=== PATIENT | female | born 1965 | race African-American/Black ===

== ENCOUNTER 2020-12-25 14:18 | Outpatient (REF) | payer OTHER, SELFPAY ==
--- NOTE | ~2020-12-25 | MR_ITS ---
EXAMINATION: MR BRAIN WITHOUT AND WITH CONTRAST CLINICAL INFORMATION: Reevaluate pituitary neoplasm. COMPARISON: MRI dated 12/11/2014. TECHNIQUE: Multiplanar, multisequential imaging was obtained without and with intravenous administration of contrast. Intravenous contrast: Gadavist 3.5 mL. Limited study with motion artifacts. FINDINGS: The lesion with decreased differential enhancement in the right lateral aspect of the anterior pituitary lobe has mildly increased in size, now measuring 1.2 x 0.8 x 0.9 cm, previously measuring 0.9 x 0.6 x 0.7 cm. The infundibulum is deviated to the left of midline. The lesion further encroaches laterally without extension into the right cavernous sinus. The internal carotid artery flow voids are maintained. There is no suprasellar extension of the microadenoma. The sella turcica is mildly expanded from chronic remodeling. No diffusion abnormalities are identified to suggest an acute or subacute infarct. The ventricles are normal in size. No mass effect or midline shift is seen. No brain parenchymal signal abnormalities are seen. No extra-axial fluid collections are noted. The brainstem and cerebellum are normal. On postcontrast imaging, there is no abnormal parenchymal or leptomeningeal enhancement. The craniovertebral junction, marrow signal, and midline structures are normal. The mastoid air cells are well aerated. Small retention cyst in the left maxillary antrum. MR/MR head/brain wo/w con IMPRESSION: Slightly limited examination with motion artifacts. Further mild increase in size of a known pituitary microadenoma, now measuring 1.2 x 0.8 x 0.9 cm in size. Otherwise, no acute intracranial process. Remainder of the brain parenchyma appears normal.
== END 2020-12-25 14:19 | disposition home or self-care (01) ==
LOC: HO.MRI 14:18
PROVIDERS: PCP Nurse Practitioner Family; Visit Provider Psychiatry & Neurology Neurology
DX: D35.2 Benign neoplasm of pituitary gland (principal)
CPT/HCPCS: 70553; A9585

== ENCOUNTER 2023-10-18 09:19 | Outpatient (REF) | payer OTHER, SELFPAY | END 2023-10-18 09:20 | disposition home or self-care (01) | LOC: HO.HKASLDS 09:19 | PROVIDERS: Visit Provider Internal Medicine Nephrology | DX: Z13.89 Encounter for screening for other disorder (principal) ==

== ENCOUNTER 2023-10-18 09:51 | Outpatient (REF) | payer OTHER, SELFPAY ==
[2023-10-18 17:38] LABS: MANUAL DIFF FLAG NO
[2023-10-18 17:42] LABS: Basophils Percent Auto 0.5 % (0-2); Hematocrit 37.5 % (37.0-47.0); Hemoglobin 12.5 g/dl (12.0-16.0); Imm Gran Abs Auto 0.01 X10*3/uL (0.00-0.03); Imm Gran Pct Auto 0.3 % (0.0-0.4); Lymphocytes Absolute Auto 0.9 X10*3/uL (1.2-4.9); Lymphocytes Percent Auto 22.6 % (20-40); Mean Corpuscular HGB Conc 33.3 g/dl (31.0-35.0); Mean Corpuscular Hemoglobin 31.3 pg (27.0-33.0); Mean Platelet Volume 9.8 fL (9.4-12.3); Monocytes Absolute Auto 0.4 X10*3/uL (0.1-1.2); Monocytes Percent Auto 9.1 % (2-11); Neutrophils Absolute Auto 2.6 x10*3/uL (2.0-8.3); Neutrophils Percent Auto 67.5 % (45-73); Platelet Count 211 X10*3/uL (160-400); Red Blood Count 3.99 X10*6/uL (4.20-5.50); Red Cell Distribution Width 11.9 % (11.0-16.0); White Blood Count 3.9 X10*3/uL (4.8-10.8)
[2023-10-18 18:19] LABS: Creatinine Urine 181.99 mg/dL; Total Protein Urine Random < 7 mg/dL (<12)
[2023-10-18 18:22] LABS: Anion Gap 13 (12-20); Blood Urea Nitrogen 15 mg/dL (9-16); Calcium 9.6 mg/dL (8.4-10.2); Carbon Dioxide 27 mmol/L (22-29); Chloride 106 mmol/L (96-108); Estimated Glomerular Filt Rate 52; Potassium 4.6 mmol/L (3.3-5.1); Sodium 141 mmol/L (135-145)
== END 2023-10-18 09:52 | disposition home or self-care (01) ==
LOC: HO.HKASLDS 09:51
PROVIDERS: Visit Provider Internal Medicine Nephrology
DX: I10 Essential (primary) hypertension (principal)
CPT/HCPCS: 36415; 80051; 82310; 82565; 82570; 84156; 84520; 85025

== ENCOUNTER 2023-10-25 13:24 | Outpatient (AMB) | payer OTHER, SELFPAY ==
--- NOTE | 2023-10-25 13:30 | HO.NEPHOV ---
Vital Signs 10/25/23 13:37 Height 5 ft 4 in Weight 160 lb BMI 27.5 BP 122/80 Blood Pressure Location Lt brachial Position Sitting Pulse 86 Pulse Source Pulse Oximeter Pulse Oximetry (%) 96 Oxygen Delivery Method Room Air Intake Visit Reasons: Follow up/ Conf Gate Watchman Required: No Accompanied by: Self / Same As Patient Allergies amitriptyline Allergy (Verified 10/25/23 13:42) Unknown chocolate Allergy (Verified 10/25/23 13:42) Unknown codeine Allergy (Verified 10/25/23 13:42) Unknown egg Allergy (Verified 10/25/23 13:42) Unknown ibuprofen Allergy (Verified 10/25/23 13:42) Unknown milk Allergy (Verified 10/25/23 13:42) Unknown Penicillins Allergy (Verified 10/25/23 13:42) Unknown pineapple Allergy (Verified 10/25/23 13:42) Unknown chicken derived Adverse Reaction (Verified 10/25/23 13:42) Gastrointestinal Upset HPI Comments Details: 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 She had an incidental renal mass for which it underwent follow-up imaging including ultrasound and MRI in the past. Those imaging studies showed it to be non malignant. She is not known to be diabetic or hypertensive. Two of her aunts have chronic kidney disease. She does not have any hematuria, flank pain, recurrent UTI, hypertension, proteinuria or edema. She denies any chest pain, shortness of breath, proximal nocturnal dyspnea, nausea, vomiting, diarrhea. She does not take any nonsteroidal anti-inflammatories. [facility] Medical History (Updated 10/25/23 @ 13:44 by Caitlin Alcazar MA) Hypertension CKD (chronic kidney disease) stage 2, GFR 60-89 ml/min Hyperparathyroidism Malrotation of kidney Renal cyst Surgical History (Updated 10/25/23 @ 13:44 by Caitlin Alcazar MA) History of facial surgery History of hysterectomy H/O hernia repair History of surgical removal of ganglion cyst Family History (Updated 10/25/23 @ 13:45 by Caitlin Alcazar MA) Mother Diabetes Maternal Aunt Kidney disease Cancer Social History (Updated 10/25/23 @ 13:45 by Caitlin Alcazar MA) Alcohol intake: never Patient Tobacco Use Status: Never used Tobacco Use of substances other than those prescribed or required for medical reasons: No Review of Systems Const All systems reviewed & are unremarkable except as noted in HPI and below Physical Exam Vital Signs: Last Vital Signs Pulse 86 10/25/23 13:37 BP 122/80 10/25/23 13:37 Pulse Ox 96 10/25/23 13:37 Oxygen Delivery Method Room Air 10/25/23 13:37 BMI result Body Mass Index 27.5 Const General: comfortable and no acute distress Orientation/consciousness: patient oriented x3 HEENT Head: Yes normocephalic Mouth: Normal oral and palatal mucosa present Eyes EOM: EOMs intact bilaterally Neck Neck: Yes supple Resp Auscultation: clear to auscultation bilaterally Cardio Jugular venous distension: no JVD Rate: regular rate GI Palpation (GI): Soft to palpation Auscultation: normal bowel sounds General: Yes no CVA tenderness Back/Spine/Pelvis Back: no CVA tenderness Skin General skin exam: no rashes or lesions noted Neuro General: patient oriented x3 and moves all extremities Extrem General: Yes no pedal edema Results Reviewed Nephrology Results: Hgb 12.5 g/dl (12.0-16.0) 10/18/23 WBC 3.9 X10*3/uL (4.8-10.8) L 10/18/23 Plt Count 211 X10*3/uL (160-400) 10/18/23 Sodium 141 mmol/L (135-145) 10/18/23 Potassium 4.6 mmol/L (3.3-5.1) 10/18/23 Chloride 106 mmol/L (96-108) 10/18/23 Carbon Dioxide 27 mmol/L (22-29) 10/18/23 BUN 15 mg/dL (9-16) 10/18/23 Creatinine 1.07 mg/dL (0.5-1.4) 10/18/23 Calcium 9.6 mg/dL (8.4-10.2) 10/18/23 Urine Creatinine 181.99 mg/dL 10/18/23 Protein/Creatinin Ratio TNP 10/18/23 Assessment & Plan Assessment & Plan (1) CKD (chronic kidney disease) stage 2, GFR 60-89 ml/min: Code(s): N18.2 - Chronic kidney disease, stage 2 (mild) Category: Medical (2) Hyperparathyroidism: Code(s): E21.3 - Hyperparathyroidism, unspecified Category: Medical (3) Malrotation of kidney: Code(s): Q63.2 - Ectopic kidney Category: Medical (4) Renal cyst: Code(s): N28.1 - Cyst of kidney, acquired Category: Medical Plan John has history of left malrotated kidney with a double ureter and renal cysts. She has no urinary symptoms. She has no history of hypertension, proteinuria, edema. She has no history DVT. Her renal functions have been stable. Her serum calcium is normal. She maintains good hydration. She avoids nonsteroidal anti-inflammatories. I ordered a F/U renal imaging . I did not make any medication changes today. All questions answered. Follow-up appointment given. Orders: Orders US renal BI Today N18.2 - Chronic kidney disease, stage 2 (mild), N28.1 - Cyst of kidney, acquired, Q63.2 - Ectopic kidney Blood Urea Nitrogen Today E21.3 - Hyperparathyroidism, unspecified, N18.2 - Chronic kidney disease, stage 2 (mild), N28.1 - Cyst of kidney, acquired, Q63.2 - Ectopic kidney Creatinine Today E21.3 - Hyperparathyroidism, unspecified, N18.2 - Chronic kidney disease, stage 2 (mild), N28.1 - Cyst of kidney, acquired, Q63.2 - Ectopic kidney Electrolytes Today E21.3 - Hyperparathyroidism, unspecified, N18.2 - Chronic kidney disease, stage 2 (mild), N28.1 - Cyst of kidney, acquired, Q63.2 - Ectopic kidney Coding Level of Care Code Est Pt Level 4 (32015) Diagnoses CKD (chronic kidney disease) stage 2, GFR 60-89 ml/min N18.2 Hyperparathyroidism E21.3 Malrotation of kidney Q63.2 Renal cyst N28.1
[2023-10-25 13:37] VITALS: BP 122/80; PULSE 86; O2SAT 96; BMI 27.5
== END 2023-10-25 14:28 | disposition home or self-care (01) ==
PROVIDERS: PCP Nurse Practitioner Family; Visit Provider Internal Medicine Nephrology
DX: N18.2 Chronic kidney disease, stage 2 (mild) (principal); E21.3 Hyperparathyroidism, unspecified; Q63.2 Ectopic kidney; N28.1 Cyst of kidney, acquired
CPT/HCPCS: 99214

== ENCOUNTER → 2023-10-25 13:24 | Outpatient (BNVA) | payer OTHER, SELFPAY | PROVIDERS: PCP Nurse Practitioner Family; Visit Provider Internal Medicine Nephrology | DX: I12.9 Hypertensive chronic kidney disease with stage 1 through stage 4 chronic kidney disease, or unspecified chronic kidney disease (principal); N18.2 Chronic kidney disease, stage 2 (mild); Q63.2 Ectopic kidney; N28.1 Cyst of kidney, acquired; E21.3 Hyperparathyroidism, unspecified | CPT/HCPCS: 99212 ==

== ENCOUNTER 2023-11-11 09:36 | Outpatient (REF) | payer OTHER, SELFPAY ==
--- NOTE | ~2023-11-11 | US_ITS ---
EXAMINATION: US RETROPERITONEAL LIMITED (RENAL ONLY) CLINICAL INFORMATION: Cyst of kidney, acquired. Left malrotated kidney with double ureter. COMPARISON: MRI abdomen 06/13/2020. Renal ultrasound 04/30/2020. TECHNIQUE: Real-time imaging of the kidneys. Limited visualization due to bowel gas and body habitus. FINDINGS: RIGHT KIDNEY: 10.6 x 4.1 x 5.3 cm (SAG x AP x TRV). No hydronephrosis. No renal calculi. Renal cortical thickness is normal. Limited visualization. LEFT KIDNEY: 10.1 x 3.8 x 3.0 cm (SAG x AP x TRV). Left kidney, particularly the lower pole, is difficult to visualize due to bowel gas. Possible malrotation and duplication of left renal collecting system are difficult to confirm due to limited visualization. A 1.5 x 1.2 cm anechoic focus in the region of the upper pole of the left kidney was visualized only on one view. No renal calculi. No hydronephrosis. ADDITIONAL FINDINGS: Incidental note on limited views of the gallbladder of cholelithiasis. Dedicated views of the gallbladder following appropriate preparation could be considered for further evaluation. US/US renal BI IMPRESSION: 1. Left kidney is very difficult to visualize due to bowel gas. Possible malrotation and duplication of left renal collecting system are difficult to confirm due to limited visualization. A 1.5 x 1.2 cm anechoic focus in the region of the upper pole of the left kidney was visualized only on one view and may possibly be related to renal cysts identified on prior MR abdomen, but are extremely difficult to evaluate due to limited visualization. Additional imaging with CT scan with and without intravenous contrast employing renal mass protocol recommended. 2. Incidental note on limited views of the gallbladder of cholelithiasis. Dedicated views of the gallbladder following appropriate preparation could be considered for further evaluation.
== END 2023-11-11 09:37 | disposition home or self-care (01) ==
LOC: HO.US 09:36
PROVIDERS: Visit Provider Internal Medicine Nephrology
DX: N28.1 Cyst of kidney, acquired (principal); N18.2 Chronic kidney disease, stage 2 (mild); Q63.2 Ectopic kidney
CPT/HCPCS: 76775

== ENCOUNTER 2024-04-17 13:46 | Outpatient (AMB) | payer OTHER, SELFPAY ==
--- NOTE | 2024-04-17 13:56 | HO.NEPHOV_ITS ---
Vital Signs 04/17/24 13:57 Height 5 ft 4 in Weight 150 lb 4 oz BMI 25.8 BP 130/80 Blood Pressure Location Rt brachial Position Sitting Pulse 88 Pulse Source Pulse Oximeter Pulse Oximetry (%) 95 Oxygen Delivery Method Room Air Intake Visit Reasons: 6 month f/u-Conf Belting Cutter Required: No Accompanied by: Self / Same As Patient Allergies amitriptyline Allergy (Verified 04/17/24 13:57) Unknown chocolate Allergy (Verified 04/17/24 13:57) Unknown codeine Allergy (Verified 04/17/24 13:57) Unknown egg Allergy (Verified 04/17/24 13:57) Unknown ibuprofen Allergy (Verified 04/17/24 13:57) Unknown milk Allergy (Verified 04/17/24 13:57) Unknown Penicillins Allergy (Verified 04/17/24 13:57) Unknown pineapple Allergy (Verified 04/17/24 13:57) Unknown chicken derived Adverse Reaction (Verified 04/17/24 13:57) Gastrointestinal Upset HPI Comments Details: 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 She had an incidental renal mass for which it underwent follow-up imaging including ultrasound and MRI in the past. Those imaging studies showed it to be non malignant. She is not known to be diabetic or hypertensive. Two of her aunts have chronic kidney disease. She does not have any hematuria, flank pain, recurrent UTI, hypertension, proteinuria or edema. She denies any chest pain, shortness of breath, proximal nocturnal dyspnea, nausea, vomiting, diarrhea. She does not take any nonsteroidal anti-inflammatories [facility] Medical History (Updated 10/25/23 @ 13:44 by Caitlin Alcazar MA) Hypertension CKD (chronic kidney disease) stage 2, GFR 60-89 ml/min Hyperparathyroidism Malrotation of kidney Renal cyst Surgical History History of facial surgery History of hysterectomy H/O hernia repair History of surgical removal of ganglion cyst Family History Mother Diabetes Maternal Aunt Kidney disease Cancer Social History Alcohol intake: never Patient Tobacco Use Status: Never used Tobacco Review of Systems Const All systems reviewed & are unremarkable except as noted in HPI and below Physical Exam Vital Signs: Last Vital Signs Pulse 88 04/17/24 13:57 BP 130/80 04/17/24 13:57 Pulse Ox 95 04/17/24 13:57 Oxygen Delivery Method Room Air 04/17/24 13:57 BMI result Body Mass Index 25.8 Const General: comfortable and no acute distress Orientation/consciousness: patient oriented x3 HEENT Head: Yes normocephalic Mouth: Normal oral and palatal mucosa present Eyes EOM: EOMs intact bilaterally Neck Neck: Yes supple Resp Auscultation: clear to auscultation bilaterally Cardio Jugular venous distension: no JVD Rate: regular rate GI Palpation (GI): Soft to palpation Auscultation: normal bowel sounds General: Yes no CVA tenderness Back/Spine/Pelvis Back: no CVA tenderness Skin General skin exam: no rashes or lesions noted Neuro General: patient oriented x3 and moves all extremities Extrem General: Yes no pedal edema Assessment & Plan Assessment & Plan (1) Renal cyst: Code(s): N28.1 - Cyst of kidney, acquired Category: Medical (2) Malrotation of kidney: Code(s): Q63.2 - Ectopic kidney Category: Medical (3) CKD (chronic kidney disease) stage 2, GFR 60-89 ml/min: Code(s): N18.2 - Chronic kidney disease, stage 2 (mild) Category: Medical Plan John has history of left malrotated kidney with a double ureter and renal cysts. She has no urinary symptoms. She has no history of hypertension, proteinuria, edema. She has no history DVT. Her renal functions had been stable but her serum creatinine had gone up to 1.3. Her serum calcium is normal. She maintains good hydration. She avoids nonsteroidal anti- inflammatories. Her F/U renal imaging was reviewed. I did not make any medication changes today. All questions answered. Follow-up appointment given. Orders: Orders Blood Urea Nitrogen 3 Months N18.2 - Chronic kidney disease, stage 2 (mild), N28.1 - Cyst of kidney, acquired, Q63.2 - Ectopic kidney Creatinine 3 Months N18.2 - Chronic kidney disease, stage 2 (mild), N28.1 - Cyst of kidney, acquired, Q63.2 - Ectopic kidney Electrolytes 3 Months N18.2 - Chronic kidney disease, stage 2 (mild), N28.1 - Cyst of kidney, acquired, Q63.2 - Ectopic kidney Calcium 3 Months N18.2 - Chronic kidney disease, stage 2 (mild), N28.1 - Cyst of kidney, acquired, Q63.2 - Ectopic kidney Protein Creatinine Ratio, Ur 3 Months N18.2 - Chronic kidney disease, stage 2 (mild), N28.1 - Cyst of kidney, acquired, Q63.2 - Ectopic kidney Coding Level of Care Code Est Pt Level 4 (95424) Diagnoses Renal cyst N28.1 Malrotation of kidney Q63.2 CKD (chronic kidney disease) stage 2, GFR 60-89 ml/min N18.2
[2024-04-17 13:57] VITALS: BP 130/80; PULSE 88; O2SAT 95; BMI 25.8
== END 2024-04-17 14:11 | disposition home or self-care (01) ==
PROVIDERS: PCP Nurse Practitioner Family; Visit Provider Internal Medicine Nephrology
DX: N28.1 Cyst of kidney, acquired (principal); Q63.2 Ectopic kidney; N18.2 Chronic kidney disease, stage 2 (mild)
CPT/HCPCS: 99214

== ENCOUNTER → 2024-04-17 13:46 | Outpatient (BNVA) | payer OTHER, SELFPAY | PROVIDERS: PCP Nurse Practitioner Family; Visit Provider Internal Medicine Nephrology | DX: N18.2 Chronic kidney disease, stage 2 (mild) (principal); N28.1 Cyst of kidney, acquired; Q63.2 Ectopic kidney | CPT/HCPCS: 99212 ==

== ENCOUNTER 2024-07-10 13:43 | Outpatient (REF) | payer OTHER, SELFPAY ==
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
--- OUTSIDE RECORDS SUMMARY | 2024-07-10 16:44 | XMS_ITS | Clinical Summary ---
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 Name Role Phone Amna Phillip [facility] Primary Care Provider Allergies Active Allergy Reactions Criticality Noted Date Comments Amitriptyline Headache 01/23/2016 Blurry vision and dizziness Carbamazepine Diarrhea,Nausea And Vomiting,Rash 11/28/2014 Chicken Meat Extract 11/14/2015 GI upset Naches Hives 12/16/2014 Codeine Rash 11/28/2014 Egg Diarrhea 12/16/2014 Says had allergy test which was pos for allergy eggs Ibuprofen Nausea And Vomiting 11/28/2014 Lactose Diarrhea 12/16/2014 Peanut 11/14/2015 Itching Penicillins Diarrhea,Nausea And Vomiting 11/28/2014 Pineapple Hives 12/16/2014 Medications atorvastatin (LIPITOR) 10 mg tablet Take 1 tablet (10 mg total) by mouth 1 (one) time each day. 4 Active escitalopram (LEXAPRO) 20 mg tablet Take 1 tablet (20 mg total) by mouth 1 (one) time each day in the morning. Active lamoTRIgine (LaMICtal) 150 mg tablet TAKE 1 TABLET BY MOUTH ONCE A DAY DIRECTED IN ADDITION TO 25MG TABLET, TOTAL DOSE= 175MG Active lamoTRIgine (LaMICtal) 25 mg tablet TAKE 1 TABLET BY MOUTH EVERY DAY (WITH 150MG) DIRECTED Active lidocaine (LIDODERM) 5 % patch Place 1 patch on the skin daily. 4 Active loratadine (CLARITIN) 10 mg tablet Take 1 tablet (10 mg total) by mouth once daily as needed. 1 Active meclizine (ANTIVERT) [address] 1 TABLET INTO MOUTH, CHEW AND SWALLOW 3 (THREE) TIMES DAILY NEEDED FOR DIZZINESS Active miscellaneous medical supply misc by Other route daily. 6 Active methocarbamoL (ROBAXIN) 500 mg tablet Take 1 tablet (500 mg total) by mouth. Active nystatin (MYCOSTATIN) 100,000 unit/gram powder Apply topically 2 times daily. 4 Active pantoprazole (PROTONIX) 40 mg EC tablet Take 1 tablet (40 mg total) by mouth 2 (two) times a day. Active Vitamin B-2 100 mg tablet Take 1 tablet (100 mg total) by mouth 1 (one) time each day. Active traZODone (DESYREL) 100 mg tablet TAKE 1 1/2- 2 TABLET BY MOUTH AT BEDTIME Active lactose-reduced food (BOOST HIGH PROTEIN ORAL) Take by mouth. Activ e Active Problems No known active problems Encounters Date Type Department Care Team Description 05/23/2024 10:00 AM EST Office Visit Orthopedic Surgery - [place] [address] [place] [phone] Gabriella Carvalho PA Tendinitis of left rotator cuff (Primary Dx); Chronic left shoulder pain; Cervicalgia from Last 3 Months Social History Tobacco Use Types Packs/Day Years Used Date Smoking Tobacco: Never Assessed Comments Unknown Sex and Gender Information Value Date Recorded Sex Assigned at Not on file Legal Sex Female 6:22 AM EST Gender Identity Not on file Sexual Orientation Not on file Obstetrics History Last Filed Vital Signs Vital Sign Reading Time Taken Comments Blood Pressure - - Pulse - - Temperature - - Respiratory Rate - - Oxygen Saturation - - Inhaled Oxygen Concentration - - Weight 70.8 kg (156 lb) 05/23/2024 10:01 AM EST Height 162.6 cm (5' 4.02 ) 05/23/2024 10:[address] Body Mass Index 26.76 05/23/2024 10:01 AM EST Plan of Treatment Upcoming Encounters Date Type Department Care Team (Late st Contact Info) Description 07/25/2024 10:00 AM EDT Office Visit Orthopedic Surgery - [place] [address] [facility] [address] [place] [phone] Gabriella Carvalho PA [address] [facility] [address] [place] [address] Health Maintenance Due Date Last Done Comments Breast Cancer Screening 1965 DTaP,Tdap,and Td Vaccines (1 - Tdap) 1982 Hepatitis A Vaccines (1 of 2 - Risk 2-dose series) 1982 Cervical Cancer Screening: Pap Smear 1984 Pneumococcal Vaccine: 50+ Years (1 of 1 - PCV) 2013 Colorectal Cancer Screening: Colonoscopy 04/04/2022 Hepatitis C Screening 04/04/2022 Social Influencers of Health Screening 04/04/2022 Hepatitis B Vaccines (1 of 3 - Risk 3-dose series) 2023 Influenza Vaccine (#1) 2024 , 02/16/2022, 02/16/2021, Additional history exists Depression Screening 03/13/2025 03/13/2024 Cholesterol Screening (Lipid Panel) 03/13/2029 03/13/2024, 03/13/2024, 12/17/2022, Additional history exists HIV Screening Completed 11/29/2014 Zoster Vaccines Completed 11/18/2018, 07/21/2018 RSV Immunization Patients 60+ Years Old Completed 04/26/2023 COVID-19 Vaccine Completed 01/04/2024, , 01/26/2022, Additional history exists HIB Vaccines Aged Out No longer eligi ble based on patient's age to complete this topic HPV Vaccines Aged Out No longer eligi ble based on patient's age to complete this topic IPV Vaccines Aged Out No longer eligi ble based on patient's age to complete this topic MMR Vaccines Aged Out No longer eligi ble based on patient's age to complete this topic Meningococcal ACWY Vaccine Aged Out N o longer eligible based on patient's age to complete this topic Meningococcal B Vacine Aged Out No lo nger eligible based on patient's age to complete this topic Pneumococcal Vaccine: Pediatrics (0 to 5 Years) and At-Risk Patients (6 to 64 Years) Aged Out No longer eligible based on patient's age to complete this topic RSV Immunization Patients Under 20 months Aged Out No longer eligible based on patient's age to complete this topic Varicella Vaccines Aged Out No longer eligible based on patient's age to complete this topic Procedures Procedure Name Priority Date/Time Associated Diagnosis Comments [place] ARTHROCENTESIS/ASPI RATION/INJECTION MAJOR JOINT/BURSA W/O U/S GUIDANCE Routine 05/23/2024 10:00 AM EST Chronic left shoulder pain Tendinitis of left rotator cuff from Last 3 Months Results * [place] ARTHROCENTESIS/ASPIRATION/INJECTION MAJOR JOINT/BURSA W/O U/S GUIDANCE (05/23/2024 10:00 AM EST) Narrative Gabriella Carvalho PA - 05/23/2024 10:00 AM EST MINA Ibarra ? 05/23/2024 11:10 AM L Inj/Asp: L subacromial bursa Indications: pain Details: 22 G needle, posterior approach Medications: 3 mL BUPivacaine HCl 0.5 %; 3 mL lidocaine 1 %; 40 mg triamcinolone acetonide 40 mg/mL Informed Consent: ??Laterality: ??Left ??Relevant images/test results available and reviewed: no ?Health status cleared: ??N/A ??Procedure/treatment, purpose, treatment alternatives, risks/potential complications and benefits explained: yes ?Risk/complications/benefits details: ??Risks and benefits associated with the injection reviewed which can include but not limited to infection, bleeding, bruising, transient synovitis, no improvement in symptoms. ??Patient questions answered: yes ?Patient agrees, verbalizes understanding, and wants to proceed: yes ?Consent given by: ??Patient ??Informed consent discussion completed by Physician/JAYSHREE with patient: ?? Verbal ??Pre-procedure timeout performed: yes ?? us Gabriella ENRIQUEZ IN CLINIC/BEDSIDE ORDERABLES Final Result from Last 3 Months Insurance [facility] Member Subscriber Plan / Payer (Ef fective 2016-Present) Name:John Kelly Relation to Subscriber:Self Name:John Kelly Payer ID:[id number] Group ID:[id number] Type:Not on file Address: [address] [place] [phone] Advance Directives Documents on File Type Date Recorded Patient Rib Cutter Expl anation Health Care Decision (hx) 01/12/2016 AD ANDREWS DIRECTIVE Health Care Decision (hx) 01/12/2016 AD ANDREWS DIRECTIVE Health Care Decision (hx) 01/12/2016 AD ANDREWS DIRECTIVE Health Care Decision (hx) 01/12/2016 AD ANDREWS DIRECTIVE Health Care Decision (hx) 01/12/2016 AD ANDREWS DIRECTIVE Health Care Decision (hx) 01/12/2016 AD ANDREWS DIRECTIVE Health Care Decision (hx) 01/12/2016 AD ANDREWS DIRECTIVE Health Care Decision (hx) 01/12/2016 AD ANDREWS DIRECTIVE Health Care Decision (hx) 01/12/2016 AD ANDREWS DIRECTIVE Health Care Decision (hx) 01/12/2016 AD ANDREWS DIRECTIVE Care Teams 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
--- OUTSIDE RECORDS SUMMARY | 2024-07-10 16:44 | XMS_ITS | Clinical Summary ---
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 Name Role Phone Garth Rosario Primary Care Provider [phone] Source Comments PLEASE NOTE, if this patient is a minor, it may be UNLAWFUL to discuss sensitive information that is contained in these records (such as FAMILY PLANNING, MENTAL HEALTH or SUBSTANCE ABUSE) with the minor patient's parent or other person without the patient's specific authorization.[facility] Allergies Active Allergy Reactions Criticality Noted Date Comments Amitriptyline Other (See Comments) 01/23/2016 Blurry vision and dizziness Carbamazepine Diarrhea,Rash,Nausea and Vomiting 11/28/2014 Chicken 11/14/2015 GI upset Brethren Hives 12/16/2014 Codeine Rash 11/28/2014 Eggs Diarrhea 12/16/2014 Says had allergy test which was pos for allergy eggs Ibuprofen Nausea and Vomiting 11/28/2014 Lactose Diarrhea 12/16/2014 Peanuts 11/14/2015 Itching Penicillins Diarrhea,Nausea and Vomiting 11/28/2014 Pineapple Hives 12/16/2014 Pork 11/14/2015 GI upset [place] 11/14/2015 GI upset Medications Miscellaneous Medical Supply miscIndications:Pi tuitary microadenoma (HCC-CMS),Fibromya lgia by miscellaneous route once daily. rollator Lifetime need Disp 1 D35.2 M79.7 1 Each 0 07/04/19 16 Active pantoprazole (PROTONIX) 40 mg EC tablet Take 40 mg by mouth 2 (two) times daily 11 04/18/20 18 Active diclofenac sodium (VOLTAREN) 1 % gelIndications:Hip pain, right Apply topically 2 (two) times daily 100 g 2 07/05/19 21 Active loratadine (CLARITIN) 10 mg tabletIndications: Seasonal allergies TAKE 1 TABLET BY MOUTH ONCE DAILY NEEDED FOR ALLERGIES 90 Tablet 1 04/15/20 21 Active miscellaneous medical supply miscIndications:Di fficulty walking by miscellaneous route once daily Orthotic sneakers x99 years 5'3 , 137 lbs 1 Each 2 10/24/19 22 Active miscellaneous medical supply miscIndications:Di fficulty walking by miscellaneous route once daily Orthotic shoes x99 years 5'3 137 lbs 1 Each 2 11/10/19 22 Active lamoTRIgine (LAMICTAL) 150 mg tablet TAKE 1 TABLET BY MOUTH ONCE A DAY DIRECTED IN ADDITION TO 25MG TABLET, TOTAL DAILY = 175MG 12/23/19 22 Active lamoTRIgine (LAMICTAL) 25 mg tablet TAKE 1 TABLET BY MOUTH ONCE A DAY DIRECTED IN ADDITION TO 150MG TABLET, TOTAL DAILY = 175MG 12/23/19 22 Active MISCELLANEOUS MEDICAL SUPPLY MISCIndications:La ck of appetite,Loss of weight by miscellaneous route 3 (three) times daily Lactose free Ensure nutrutional supplement to use one can TID x99 years vanilla flavor 90 Each 11 10/06/19 23 Active meclizine 25 mg chewable tabletIndications: Benign paroxysmal positional vertigo, unspecified laterality PLACE 1 TABLET INTO MOUTH, CHEW AND SWALLOW 3 (THREE) TIMES DAILY NEEDED FOR DIZZINESS 30 Tablet 3 11/18/19 23 Active traZODone (DESYREL) 100 mg tablet Take 200 mg by mouth 07/27/19 23 Active escitalopram (LEXAPRO) 20 mg tablet Take 1 Tablet by mouth once daily 90 Tablet 05/13/19 24 Active nystatin (MYCOSTATIN) 100,000 unit/gram powderIndications: Tinea corporis Apply topically 2 (two) times daily 30 g 2 09/29/19 24 Active VITAMIN B-2 100 mg tabIndications:Neftali whalen without status migrainosus, not intractable, unspecified migraine type TAKE 1 TABLET BY MOUTH EVERY DAY 90 Tablet 3 01/03/20 24 Active methocarbamoL (ROBAXIN) 500 mg tabletIndications: Acute pain of left shoulder,Strain of neck muscle, subsequent encounter Take 1 Tablet by mouth 3 (three) times daily 30 Tablet 1 02/22/20 24 Active lidocaine (LIDODERM) 5 % patchIndications:C hronic left shoulder pain,Strain of neck muscle, subsequent encounter Place 1 Patch onto the skin daily. Apply 1 patch to the affected area for a maximum of 12 hours, followed by removal for 12 hours. 30 Patch 03/13/20 24 Active traMADoL (ULTRAM) 50 mg tabletIndications: Chronic left shoulder pain Take 0.5 Tablets by mouth 3 (three) times daily as needed for pain 20 Tablet 03/13/20 24 Active salicylic acid 17 % external solutionIndication s:Viral wart on finger Apply topically once daily 10 mL 1 03/13/20 24 Active atorvastatin (LIPITOR) 10 mg tabletIndications: Mixed hyperlipidemia TAKE 1 TABLET BY MOUTH EVERY DAY 90 Tablet 1 03/26/20 24 Active Active Problems Problem Noted Date Diagnosed Date Anxiety 09/29/2023 Stage 3a chronic kidney disease (HCC-CMS) 2022 Simple hepatic cyst 08/24/2019 Overview (08/24/2019): Noted on CT-9 mm simple cyst in the lateral segment of liver Calculus of gallbladder with out cholecystitis without obstruction 08/24/2019 Overview (08/24/2019): Noted on CT-multiple lucent stones, no inflammatory changes Renal lesion 08/24/2019 Overview (07/04/2020): MRI abodimen Jun 2020: Simple cysts of malrotated kidney at [facility] CT abdomen-06/2019-11 mm lesion in the upper pole of the left kidney, recommendation for US. Wheelchair dependence 01/29/2019 H/O: hysterectomy 07/24/2018 Seasonal allergic rhinitis 12/07/2017 History of sleep apnea 12/27/2016 Overview (12/25/2020): November 2020: Not using CPAP Sleep study 12/03/16 at [facility] ordered via Dr. Marta Woods = STEFANO, Mild-mod and referred for BiPAP titration GERD (gastroesophageal reflux disease) 7 Severe episode of recurrent major depressive disorder, without psychotic features ([facility]) 07/19/2016 Overview (03/13/2024): Psych f/u at [facility] on [address] (Osiris Malone) Insomnia due to anxiety and fear 07/19/2016 Overview (03/13/2024): PSYCH F/U [facility] ((Osiris Malone)) Patient has healthcare proxy / NO BLOOD/ no date on form- received jan 2016 03/28/2016 Overview (03/28/2016): Document signed - but no date notes on document History of fall 01/15/2016 Overview (07/19/2016): 03/08/16- david saw her x 8- d/emilio after 8 visits- no longer needed. Home exercise encouraged did not meet up and go times goal of 10 seconds. 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 NEED RELEASE FOR PSYCH coordination ofcare Chondromalacia of both patellae 01/24/2015 Overview (06/11/2016): 05/24/16Saw Brain IRVIN Palomo- - bilat- pt will do PT- will r/t 6-8 weeks Saw Wenceslao Palomo PA-C September 2014 11/14/12 [facility] no sig. Abnormality right knee film 11/10/11 bilat knee pain normal exam Right ankle film normal 11/10/11 Normal left ankle film 11/10/11 BMD 04/02/11 normal bone density [facility] 01/03/04 normall elft foot film; normal left ankle bilat knee 03/04/05 norml Lumbar radiculopathy 01/24/2015 Overview (09/29/2023): August 2023-Followed by physiatry at [facility]-gets injections 09/15/15 saw PVSS TENS unti 50% improvement- no injection advised- conservative therapy only- pain likely Fibromyalgia in etiology 05/15/13 lucien Mild facet hypertrophy within the caudal LS spine without effect upon the central canal or adjacant neural foramen. No central stenosis nor foraminal stenosis throughout study 10/06/10 spine scoliosis there is levo curvature from T1-T12 of 8 degrees there is a dextro curvature from 1.1 to 1.5 of 5 degrees 02/16/[address]: Neg for fx/dislocation/loss of normal lordosis, likely secondary to spasm, Degen chg noted uin upper thoracic spine. Mild levoscoliosis of the right lumbar junction MR cervical spine 03/04/05: minimal post disc bulge C4-5, and C5-6 Pituitary microadenoma/ MRI done Nov 2014 [facility] 12/20/2014 Overview (10/23/2021): September 2021: has done imaging on head but is not sure what results were Mri of the brain done 12/11/14 at [facility]. For ? Optic neuritis left optic nerve lesion, spells.[facility] does not have report form her visit [...] retention cysts in the left maxillary sinus Hyperlipidemia 11/28/2014 Leukocytopenia Overview (02/24/2022): Jan 2022: Heme at [facility] also says no need for further workup, 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, Refer to pcp and neurologist to [facility] medications Med list in 2012: Tylenol,gaviscon,alprazolam,benztropine,vit b 12,keppra 500 bid, prilosec 20,metamucil,biotene mouth wash,zoloft 100 daily,simvastatin 20mg daily,trazodone 150mg hs History of seizures Overview (10/23/2021): September 2021: has not had any seizures [...] per id note 07/26/12; since 2003; on negin [place] Office Location & Contact [address] [place] [address] [place] [id number] Fibromyalgia Overview (02/25/2017): 11/17/15 saw Neuro- dx migraine- begin imitrex 50mg po bid- r/t 3 mon 07/31/15 saw Neuro no chg- r/t 6 month 07/23/15 rec approval for tens unit from [facility] 07/16/15: [facility]. Saw Sukhjinder Arce MD No [...] unit given. Lyrica minimally helpful 06/05/15;Tel call [phone] Kalin: PVSS saw 05/12/15: saw Dr. Ja Piña [phone] had EMG RLE-Normal,s/s worse with weight bearing activities; has wheel chair/walker, and cane per note. Assessment: radicuplothy, lumbar region MRI of the spine, no sig right sided nerve impingment, EMG of the right normal, PT minimally helpful, lyrica with mild improvement, possible SI joint mediated pain, plan injection of SI joint Marisela done 04/22/15 =6 ( normal) 02/13/[address] Hale at [facility] : plan cauda equina steroid injection Began [address] Avis Prajapati Saw ENT for dizziness 07/07/12: no vestibular dysfunction, normal hearing Thrush in 03/31/12, saw same ENT, Gerardo Bravo, at #[phone] amb with mild ataxia Dec 2010; Used cane with limp with ambulating in Apr 2011 MRI lumbar Spine 05/15/13: Subtle convex right lumbar scoliosis. Subtle disc bulge at L5-S1. Overall canal and foramen dimensions are acceptable the distal thoracic cord. Lumbar roots appear normal Began lyrica approx Fall [address] Galvan appt 01/07/15: saw Geoffrey at [facility]. Dx with MILD DDD confirmed by MRI, no surg required. Can try steroid injection May 2014, appt with Dr. Brent Boyd, At [facility] #[phone]; dx was 1.spells,2.depresion,3.chronic daily headache,4.lumbar radiculopathy,5.Fibromyalgia, Tx [...] as above in addition #6, optic neuritis, [place] normal MRI disc bulge L5-S1, Saw Dr. Diaz who sent her to psych, Saw Dr. Thomas, who said no surg. , plan : image MRI of orbits/face/neck, begin Amitripyline 100po qhs, stop trazadone [address] Ricardo Hutchins is rx'er at [facility] for the pt Lyrica/Lexapro/Klonopin RICARDO GONZALEZ, PMHNP-BC [address] [place] [address] ?[phone] ? Resolved Problems Problem Noted Date Diagnosed Date Resolved Date Suspected COVID-19 virus infection 09/07/2019 10/23/2021 Overview (09/07/2019): COVID-19 Tracking [reviewed or updated 09/07/2019] ? [...] weakening medications) ? ? Healthcare worker or paper cone maker? No ? ? COVID-19 Tested? - No ? ? Is patient ? No Other chest pain 05/15/2018 10/23/2021 Overview (05/15/2018): Patient was in the hospital and kept overnight for observation to Rule out ACS/PE. D-Dimer was negative, no significant electrolyte imbalances, EKG WNL. Negative trops. Tinea corporis/intertrigo breasts 02/25/2017 10/23/2021 Obesity (BMI 30.0-34.9) 07/19/201610/01 Neck pain 12/04/2015 10/23/2021 Overview (12/04/2015): Pt reported a painful cyst to left neck- req u/s done 11/28/15- it is normal. Normal lymph node at clinical area of concern Skin abnormality 01/24/2015 01/24/2015 Overview (01/24/2015): [place] Dr. Re[place] at [place] [facility], dx with Seborrhic derm/dermatosis papulosa/and acneform outbreak Plantar fasciitis 01/24/2015 01/24/2015 Overview (01/24/2015): [facility] October 2014 saw Emperatriz Lira PA-C, advised excercises H/O myocardial perfusion scan/ 2010, normal 01/24/2015 10/23/2021 Overview (01/24/2015): 03/17/11 without dx ischemia prob normal perfusion Normal Ef at 66% without wall motion abnormality History of snoring/NEG SLEEP STUDY 201001/24/2015 10/23/2021 Overview (01/24/2015): Had neg sleep study done 09/2010went to [facility] Pap smear for cervical cance r screening/ PT has No uterus,cervix, tubes or ovaries secondary to surgery for menoraghia, no pelvic required in future 01/02/2015 01/24/2015 Overview (01/24/2015): Done by Dr. Jason Chen, [address] 03/09/11 VAGINAL NIL ( no mention of HPV or ECC) Pt without cervix, no further pap/pelvic needed, Pt no tubes or ovaries either, removed for benign cause, menorrhagia Irritable bowel syndrome with constipation 11/28/2014 10/23/2021 Overview (08/31/2016): Saw GI 01/22/16- Dr. Sonia Khoury MD- [phone] PPI to bid- added carafate for a ew week- req that she Move and lose weight! abd U/s 05/03/12 [facility] Mild Hepatic fatty infiltrate Migraines 01/12/2015 Immunizations Name Administration Dates Next Due Flu, Recombinant, 18y+, Flublok 02/05/2020,01/31 INFLUENZA, SEASONAL, INJECTABLE 02/16/2021 Influenza (FLUBLOK),recombinant,injectable,preservative Free 05/26/2015 MODERNA COVID-19 VACCINE BIVALENT, BLUE CAP, 6M+ 01/26/2022 Moderna COVID-19 Vaccine, re d cap blue label, 12+ Primary Series 10/24/2021 ZOSTER VACCINE, RECOMBINANT (SHINGRIX) 9,07/21/2018 Family History Medical History Relation Name Comments Heart Problems Father 62 mi Other Father 62 seizure disorde r Breast cancer Maternal Aunt Cancer Maternal Aunt bone Kidney disease Maternal Aunt Diabetes Mother High Cholesterol Mother Stroke Paternal Grandmother Relation Name Status Comments Brother as infant2.5 months Father 62 Maternal Aunt Maternal Grandmother fall/hip Mother Alive Paternal Grandfather old Paternal Grandmother Sister 1 well Alive Sister 2 killed Social History Tobacco Use Types Packs/Day Years Used Date Smoking Tobacco: Never Smokeless Tobacco: Never Tobacco Cessation:Counseling Given: Not Answered Alcohol Use Standard Drinks/Week Comments No 0 (1 standard drink = 0.6 oz pur e alcohol) never Social Connections Answer Date Recorded Connectedness 0 01/17/2024 Financial Resource Strain Answer Date R ecorded Financial Resource Strain 0 2018 Stress Answer Date Recorded Stress 0 12/24/2018 Physical Activity Answer Date Recorded Physical Activity 0 12/24/2018 Food Insecurity Answer Date Recorded Food 0 01/26/2024 Transportation Needs Answer Date Record ed Transportation 0 12/24/2018 Housing Stability Answer Date Recorded Housing 0 12/24/2018 Safety and Environment Answer Date Orlin rded Safety 0 12/24/2018 Utilities Answer Date Recorded Utilities 0 12/24/2018 Employment Answer Date Recorded Stress 0 01/17/2024 Comments No Sex and Gender Information Value Date Recorded Sex Assigned at Female 02/25/2017 11:01 AM PDT Legal Sex Female 10:52 AM PDT Gender Identity Female 02/25/2017 11:01 AM PDT Sexual Orientation Straight 02/25/2017 11 :01 AM PDT Occupation Industry Job Start Date Job End Date on disability due to the pain Not on file Not on file Not on file Last Filed Vital Signs Vital Sign Reading Time Taken Comments Blood Pressure 124/70 03/13/2024 2:23 PM EST Pulse 76 03/13/2024 2:23 PM EST Temperature 37.2 ??C (98.9 ??F) 03/13/2024 2:23 PM ES T Respiratory Rate 16 03/13/2024 2:23 PM EST Oxygen Saturation 95% 03/13/2024 2:23 PM EST Inhaled Oxygen Concentration - - Weight 75.3 kg (166 lb) 03/20/2024 10:44 AM EST Height 162.6 cm (5' 4 ) 03/20/2024 10:44 AM EST Body Mass Index 28.49 03/20/2024 10:44 AM EST Plan of Treatment Health Maintenance Due Date Last Done Comments HPV Screening 1965 CT Colonography 2008 Fecal DNA 2008 Flexible Sigmoidoscopy 2008 FIT/gFOBT 04/01/2014 04/01/2013 Colonoscopy 04/17/2023 04/17/2013 Colorectal Cancer Screening 04/17/2023 Alcohol and Drug Screen 05/02/2024 09/29/19 24, 01/04/2023, 07/30/2022, Additional history exists Depression Monitoring 06/13/2024 03/13/2024 , 09/29/2023, 01/04/2023, Additional history exists Hypertension Screening (#1) 03/13/2025 Lipid Screening 03/13/2025 03/13/2024, 11/30, 10/26/2021, Additional history exists Tobacco Screening 03/13/2025 03/13/2024 Medicare Annual Wellness Visit 06/13/2025 0 06/13/2024, 03/13/2024, 01/04/2023, Additional history exists Breast Cancer Screening (Mammogram) 07/04/2025 07/04/2024, 07/01/2023, 11/03/2021, Additional history exists Diabetes Screening 03/13/2027 03/13/2024, 1 05/13/2023, 12/17/2022, Additional history exists HIV Screening Completed 11/29/2014 Hepatitis C Screening Completed 11/29/2014 Imm-Zoster, Recombinant Completed 11/18/2018, 07/21 Imm-Influenza Discontinued 06/06/2023, 01/30, 02/16/2021, Additional history exists [id number] Completed 01/04/2024, 01/01, 01/26/2022, Additional history exists Cervical Ablation/Cold-Knife Conization Discontinued Cervical Cancer Screening Discontinued Cervical Cryotherapy Discontinued Colposcopy Discontinued Endometrial Biopsy Discontinued Excision/Leep Discontinued HPV Genotyping Discontinued Imm-DTaP/Tdap/Td Discontinued Pap + HPV Discontinued Pap Smear Discontinued Vaginal Pap Discontinued Vulvoscopy Discontinued Procedures Procedure Name Priority Date/Time Associated Diagnosis Comments HISTORIC MAMMOGRAM 07/04/2024 3: 00 AM EST ANNUAL WELLNESS VISIT SCANNED DOCUMENT 06/13/2024 3:00 AM EST REFERRAL SCANNED DOCUMENT 05/10/2024 3:00 AM EST COMPREHENSIVE METABOLIC PANEL Routine 03/13/2024 3:30 PM EST Examination, medical, general LIPID PANEL Routine 03/13/2024 3:30 PM EST Examination, medical, general ANTIBODY HIV-1&HIV-2 SINGLE RESULT Routine 11/29/2014 10:18 AM EDT Screening examination for venereal disease HEPATITIS A,B,C PANEL Routine 11/29/2014 10:18 AM EDT Routine health maintenance Screening examination for venereal disease from Last 3 Months or Most Recently Relevant to Health Maintenance Results * HISTORIC MAMMOGRAM (07/04/2024 3:00 AM EST) 07/04/2024 3:00 AM EST Garth Rosario [facility] SUPERINTENDENT IMG MAMMO Final Res ult * ANNUAL WELLNESS VISIT SCANNED DOCUMENT (06/13/2024 3:00 AM EST) 06/13/2024 3:00 AM EST Garth Rosario [employer] SUPERINTENDENT SCAN OTHER ORDERS Final R esult * REFERRAL SCANNED DOCUMENT (05/10/2024 3:00 AM EST) 05/10/2024 3:00 AM EST [facility] Provider Default SCAN REFERRAL Final Resu lt * (ABNORMAL) LIPID PANEL (03/13/2024 3:30 PM EST) CHOLESTEROL, TOTAL 201(H) <200 mg/dL [facility] HDL CHOLESTEROL 74 > OR = 50 mg/dL [facility] TRIGLYCERIDES 75 <150 mg/dL [facility] LDL-CHOLESTEROL 111(H) 99 mg/dL (calc) [facility] Comment: Reference range: <100 Desirable range <100 mg/dL for primary prevention; ?? <70 mg/dL for patients with CHD or diabetic patients with > or = 2 CHD risk factors. LDL-C is now calculated using the Isabell calculation, which is a validated novel method providing better accuracy than the Friedewald equation in the estimation of LDL-C. Ar ARMENDARIZ et al. VISHAL. 2013;310(19): 1019-2986 (http://education.Music Nation/faq/VOC089) CHOL/HDLC RATIO 2.7 <5.0 (calc) [facility] NON-HDL CHOLESTEROL 127 <130 mg/dL (calc) [facility] Comment: For patients with diabetes plus 1 major ASCVD risk factor, treating to a non-HDL-C goal of <100 mg/dL (LDL-C of <70 mg/dL) is considered a therapeutic option. Blood Blood / Unknown 03/13/2024 3 :30 PM EST 03/13/2024 3:32 PM EST Narrative [employer] [facility] - 03/14/2024 4:40 AM EST FASTING:NO Garth Rosario [facility] - BLOOD DRAW Final Re sult [employer] [address] [address], [employer] [address] [address] * (ABNORMAL) COMPREHENSIVE METABOLIC PANEL (03/13/2024 3:30 PM EST) GLUCOSE 87 65 - 139 mg/dL [facility] Comment: ?Non-fasting reference interval UREA NITROGEN (BUN) 17 7 - 25 mg/dL [facility] CREATININE (blood) 1.30(H) 0.50 - 1.05 mg/dL [facility] EGFR 47(L) > OR = 60 mL/min/1. 73m2 [facility] BUN/CREATININE RATIO 13 6 - 22 (calc) [facility] SODIUM 140 135 - 146 mmol/L [facility] POTASSIUM 4.7 3.5 - 5.3 mmol/L [facility] CHLORIDE 105 98 - 110 mmol/L [employer] CARBON DIOXIDE 30 20 - 32 mmol/L [facility] CALCIUM 9.2 8.6 - 10.4 mg/dL [facility] PROTEIN, TOTAL 6.5 6.1 - 8.1 g/dL [facility] ALBUMIN 4.2 3.6 - 5.1 g/dL [facility] GLOBULIN 2.3 1.9 - 3.7 g/dL (calc) [facility] ALBUMIN/GLOBULI N RATIO 1.8 1.0 - 2.5 (calc) [facility] BILIRUBIN, TOTAL 0.3 0.2 - 1.2 mg/dL [facility] ALKALINE PHOSPHATASE 62 37 - 153 U/L [facility] AST 20 10 - 35 U/L [facility] ALT 28 6 - 29 U/L [facility] Blood Blood / Unknown 03/13/2024 3 :30 PM EST 03/13/2024 3:32 PM EST Narrative [facility] - 03/14/2024 4:40 AM EST FASTING:NO Garth Rosario [facility] - BLOOD DRAW Edited R esult - Final [facility] [address] [address], [facility] [address] [address] * HEPATITIS A,B,C PANEL (11/29/2014 10:18 AM EDT) HEPATITIS B SURFACE ANTIBODY NEGATIVE NEGATIVE [facility] SURFACE ANTIGEN NEGATIVE NEGATIVE [facility] C VIRUS DIAGNOSTIC NEGATIVE NEGATIVE [facility] A ANTIBODY TOTAL NEGATIVE NEGATIVE [facility] B CORE ANTIBODY NEGATIVE NEGATIVE [facility] Blood specimen (specimen) Blood / Unknown 11/29/2014 10:18 AM EDT 11/29/2014 10:34 AM EDT Narrative [facility] - 11/29/2014 1:07 PM EDT [employer] [address] [place] [address] PT ID [id number] ORD# [id number] [facility] - BLOOD DRAW Edited Resul t - Final [facility] [address] [place] [address], [place] [phone] * HIV-1 & HIV-2 ANTIBODIES (11/29/2014 10:18 AM EDT) HIV 1 AND 2 ANTIBODY SCREEN NEGATIVE NEGATIVE [facility] Blood specimen (specimen) Blood / Unknown 11/29/2014 10:18 AM EDT 11/29/2014 10:34 AM EDT Narrative [facility] - 11/29/2014 1:56 PM EDT [facility] [employer] [address] [place] [address] PT ID [id number] ORD# [id number] Lali [facility] - BLOOD DRAW Final Result Performing Organization Address City/[facility]/ZIP Co de Phone Number [facility] [address] [place] [address], [place] [phone] from Last 3 Months or Most Recently Relevant to Health Maintenance Insurance [facility] Member Subscriber Plan / Payer (Ef fective 2016-Present) Name:John Kelly Relation to Subscriber:Self Name:Leticia Felicitascaroline Roberto Payer ID:[id number] Group ID:Not on file Type:Indemnity Address: [place] [address] [address] Care Teams 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
[2024-07-10 19:10] LABS: Anion Gap 11 (12-20); Blood Urea Nitrogen 12 mg/dL (9-16); Calcium 10.1 mg/dL (8.4-10.2); Carbon Dioxide 29 mmol/L (22-29); Chloride 104 mmol/L (96-108); Estimated Glomerular Filt Rate 52; Potassium 4.4 mmol/L (3.3-5.1); Sodium 140 mmol/L (135-145)
[2024-07-10 19:13] LABS: Total Protein Urine Random < 7 mg/dL (<12)
== END 2024-07-10 13:44 | disposition home or self-care (01) ==
LOC: HO.HKASLDS 13:43
PROVIDERS: Visit Provider Internal Medicine Nephrology
DX: N28.1 Cyst of kidney, acquired (principal); Q63.2 Ectopic kidney; N18.2 Chronic kidney disease, stage 2 (mild)
CPT/HCPCS: 36415; 80051; 82310; 82565; 82570; 84156; 84520

== ENCOUNTER 2024-07-17 13:42 | Outpatient (AMB) | payer OTHER, SELFPAY ==
[2024-07-17 13:44] VITALS: BP 115/70; PULSE 75; O2SAT 97; BMI 27.3
--- NOTE | 2024-07-17 13:44 | HO.NEPHOV ---
Vital Signs 07/17/24 13:44 Height 5 ft 4 in Weight 159 lb BMI 27.3 BP 115/70 Blood Pressure Location Rt brachial Position Sitting Pulse 75 Pulse Source Pulse Oximeter Pulse Oximetry (%) 97 Oxygen Delivery Method Room Air Intake Visit Reasons: 3 mnts f/u appt-Conf [place] [employer] Required: No Allergies amitriptyline Allergy (Verified 07/17/24 13:48) Unknown chocolate Allergy (Verified 07/17/24 13:48) Unknown codeine Allergy (Verified 07/17/24 13:48) Unknown egg Allergy (Verified 07/17/24 13:48) Unknown ibuprofen Allergy (Verified 07/17/24 13:48) Unknown milk Allergy (Verified 07/17/24 13:48) Unknown Penicillins Allergy (Verified 07/17/24 13:48) Unknown pineapple Allergy (Verified 07/17/24 13:48) Unknown chicken derived Adverse Reaction (Verified 07/17/24 13:48) Gastrointestinal Upset Do you need a note to return to daycare/school/sports/work: No HPI Comments Details: 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 She had an incidental renal mass for which it underwent follow-up imaging including ultrasound and MRI in the past. Those imaging studies showed it to be non malignant. She is not known to be diabetic or hypertensive. Two of her aunts have chronic kidney disease. She does not have any hematuria, flank pain, recurrent UTI, hypertension, proteinuria or edema. She denies any chest pain, shortness of breath, proximal nocturnal dyspnea, nausea, vomiting, diarrhea. She does not take any nonsteroidal anti-inflammatories [facility] Medical History Hypertension CKD (chronic kidney disease) stage 2, GFR 60-89 ml/min Hyperparathyroidism Malrotation of kidney Renal cyst Surgical History History of facial surgery History of hysterectomy H/O hernia repair History of surgical removal of ganglion cyst Family History Mother Diabetes Maternal Aunt Kidney disease Cancer Social History Alcohol intake: never Patient Tobacco Use Status: Never used Tobacco Review of Systems Const All systems reviewed & are unremarkable except as noted in HPI and below Physical Exam Vital Signs: Last Vital Signs Pulse 75 07/17/24 13:44 BP 115/70 07/17/24 13:44 Pulse Ox 97 07/17/24 13:44 Oxygen Delivery Method Room Air 07/17/24 13:44 BMI result Body Mass Index 27.3 Const General: comfortable and no acute distress Orientation/consciousness: patient oriented x3 HEENT Head: Yes normocephalic Mouth: Normal oral and palatal mucosa present Eyes EOM: EOMs intact bilaterally Neck Neck: Yes supple Resp Auscultation: clear to auscultation bilaterally Cardio Jugular venous distension: no JVD Rate: regular rate GI Palpation (GI): Soft to palpation Auscultation: normal bowel sounds General: Yes no CVA tenderness Back/Spine/Pelvis Back: no CVA tenderness Skin General skin exam: no rashes or lesions noted Neuro General: patient oriented x3 and moves all extremities Extrem General: Yes no pedal edema Results Reviewed Nephrology Results: Hgb 12.5 g/dl (12.0-16.0) 10/18/23 WBC 3.9 X10*3/uL (4.8-10.8) L 10/18/23 Plt Count 211 X10*3/uL (160-400) 10/18/23 Sodium 140 mmol/L (135-145) 07/10/24 Potassium 4.4 mmol/L (3.3-5.1) 07/10/24 Chloride 104 mmol/L (96-108) 07/10/24 Carbon Dioxide 29 mmol/L (22-29) 07/10/24 BUN 12 mg/dL (9-16) 07/10/24 Creatinine 1.08 mg/dL (0.5-1.4) 07/10/24 Calcium 10.1 mg/dL (8.4-10.2) 07/10/24 Urine Creatinine 36.00 mg/dL 07/10/24 Protein/Creatinin Ratio TNP 07/10/24 Renal US 11/11/23 Assessment & Plan Assessment & Plan (1) Renal cyst: Code(s): N28.1 - Cyst of kidney, acquired Category: Medical (2) Malrotation of kidney: Code(s): Q63.2 - Ectopic kidney Category: Medical (3) Hyperparathyroidism: Code(s): E21.3 - Hyperparathyroidism, unspecified Category: Medical (4) CKD (chronic kidney disease) stage 2, GFR 60-89 ml/min: Code(s): N18.2 - Chronic kidney disease, stage 2 (mild) Category: Medical (5) Hypertension: Code(s): I10 - Essential (primary) hypertension Category: Medical Qualifiers: Hypertension type: primary hypertension Qualified Code(s): I10 - Essential (primary) hypertension Giancarlo Lopez has history of left malrotated kidney with a double ureter and renal cysts. She has no urinary symptoms. She has no history of hypertension, proteinuria, edema. She has no history DVT. Her renal functions had been stable . Her serum calcium is normal. She maintains good hydration. She avoids nonsteroidal anti-inflammatories. Her F/U renal imaging was reviewed. I did not make any medication changes today. All questions answered. Follow-up appointment given. Orders: Orders Creatinine 6 Months E21.3 - Hyperparathyroidism, unspecified, I10 - Essential (primary) hypertension, N18.2 - Chronic kidney disease, stage 2 (mild), N28.1 - Cyst of kidney, acquired, Q63.2 - Ectopic kidney Electrolytes 6 Months E21.3 - Hyperparathyroidism, unspecified, I10 - Essential (primary) hypertension, N18.2 - Chronic kidney disease, stage 2 (mild), N28.1 - Cyst of kidney, acquired, Q63.2 - Ectopic kidney Calcium 10 Months E21.3 - Hyperparathyroidism, unspecified, I10 - Essential (primary) hypertension, N18.2 - Chronic kidney disease, stage 2 (mild), N28.1 - Cyst of kidney, acquired, Q63.2 - Ectopic kidney Complete Blood Count Auto Diff 10 Months E21.3 - Hyperparathyroidism, unspecified, I10 - Essential (primary) hypertension, N18.2 - Chronic kidney disease, stage 2 (mild), N28.1 - Cyst of kidney, acquired, Q63.2 - Ectopic kidney Parathyroid Hormone Intact 10 Months E21.3 - Hyperparathyroidism, unspecified, I10 - Essential (primary) hypertension, N18.2 - Chronic kidney disease, stage 2 (mild), N28.1 - Cyst of kidney, acquired, Q63.2 - Ectopic kidney Blood Urea Nitrogen 6 Months E21.3 - Hyperparathyroidism, unspecified, I10 - Essential (primary) hypertension, N18.2 - Chronic kidney disease, stage 2 (mild), N28.1 - Cyst of kidney, acquired, Q63.2 - Ectopic kidney Calcium 6 Months E21.3 - Hyperparathyroidism, unspecified, I10 - Essential (primary) hypertension, N18.2 - Chronic kidney disease, stage 2 (mild), N28.1 - Cyst of kidney, acquired, Q63.2 - Ectopic kidney Creatinine 10 Months E21.3 - Hyperparathyroidism, unspecified, I10 - Essential (primary) hypertension, N18.2 - Chronic kidney disease, stage 2 (mild), N28.1 - Cyst of kidney, acquired, Q63.2 - Ectopic kidney Blood Urea Nitrogen 10 Months E21.3 - Hyperparathyroidism, unspecified, I10 - Essential (primary) hypertension, N18.2 - Chronic kidney disease, stage 2 (mild), N28.1 - Cyst of kidney, acquired, Q63.2 - Ectopic kidney Electrolytes 10 Months E21.3 - Hyperparathyroidism, unspecified, I10 - Essential (primary) hypertension, N18.2 - Chronic kidney disease, stage 2 (mild), N28.1 - Cyst of kidney, acquired, Q63.2 - Ectopic kidney Vitamin D 25-OH Total 10 Months E21.3 - Hyperparathyroidism, unspecified, I10 - Essential (primary) hypertension, N18.2 - Chronic kidney disease, stage 2 (mild), N28.1 - Cyst of kidney, acquired, Q63.2 - Ectopic kidney Coding Level of Care Code Est Pt Level 4 (85895) Diagnoses Renal cyst N28.1 Malrotation of kidney Q63.2 Hyperparathyroidism E21.3 CKD (chronic kidney disease) stage 2, GFR 60-89 ml/min N18.2 Primary hypertension I10 Hypertension type: primary hypertension
== END 2024-07-17 14:06 | disposition home or self-care (01) ==
LOC: HO.HKAS 13:42
PROVIDERS: PCP Nurse Practitioner Family; Visit Provider Internal Medicine Nephrology
DX: N28.1 Cyst of kidney, acquired (principal); Q63.2 Ectopic kidney; E21.3 Hyperparathyroidism, unspecified; I12.9 Hypertensive chronic kidney disease with stage 1 through stage 4 chronic kidney disease, or unspecified chronic kidney disease; N18.2 Chronic kidney disease, stage 2 (mild)
CPT/HCPCS: 99214

== ENCOUNTER → 2024-07-17 13:42 | Outpatient (BNVA) | payer OTHER, SELFPAY | PROVIDERS: PCP Nurse Practitioner Family; Visit Provider Internal Medicine Nephrology | DX: I12.9 Hypertensive chronic kidney disease with stage 1 through stage 4 chronic kidney disease, or unspecified chronic kidney disease (principal); N18.2 Chronic kidney disease, stage 2 (mild); N28.1 Cyst of kidney, acquired; E21.3 Hyperparathyroidism, unspecified; Q63.2 Ectopic kidney | CPT/HCPCS: 99212 ==

== ENCOUNTER 2025-01-17 11:47 | Outpatient (REF) | payer OTHER, SELFPAY ==
--- OUTSIDE RECORDS SUMMARY | 2024-02-22 16:11 | XMS_ITS | Encounter Summary ---
Author Organization [facility] Address [address] [place] [address] Care Team Providers Care Tubular Riveter Name Role Phone Amna Phillip Primary Care Provider Encounter Details Date Type Department Care Team (Late st Contact Info) Description 02/22/2024 4:11 PM EDT Hospital Encounter TH HISTORIC ENCOUNTERS EASTERN CONVERSION ONLY Kristen Foster, JERMAINE [address] [place] [address] Social History Tobacco Use Types Packs/Day Years [...] Care Team (Late st Contact Info) Description 02/21/2025 2:30 PM EDT Office Visit Orthopedic Surgery - [place] [address] [facility] [address] [place] [phone] Gabriella Carvalho PA [address] [facility] [address] [place] [address] documented as of this encounter Procedures Procedure Name Priority Date/Time Associated Diagnosis Comments CR SHOULDER LT MIN 2 VIEW Routine 02/22/2024 5:15 PM EDT documented in this encounter Results * CR SHOULDER LT MIN 2 VIEW (02/22/2024 5:15 PM EDT) Anatomical Region Laterality Modality Radiographic Chloé ging 02/22/2024 4:19 PM EDT Narrative 02/22/2024 5:15 PM EDT [facility] Diagnostic Imaging Department [address] [place] [address] Patient: JANICECHRISTIANE /Age/Sex: 1965 - 58 - F Unit#: [id number] Location/Status: SPDIGEN/REG CLI Mnemonic/Ordering Site: [facility]/SP[facility] Ordering [...] Procedure Note Cyril Main MD - 02/28/2024 [facility] Diagnostic Imaging Department [address] [place] [address] Patient: CHRISTIANE KELLY Pardeep /Age/Sex: 1965 - 58 - F Unit#: [id number] Location/Status: SPDIGEN/REG CLI Mnemonic/Ordering Site: [facility] Ordering Physician: KRISTEN FOSTER RECORDING STUDIO SET UP WORKER CR Shoulder LT Min 2 View - 02/22/24 - [id number] Report Status:Signed EXAMINATION: LEFT SHOULDER CLINICAL INFORMATION: [...] BRET MD Dic Date/Time: 02/22/241712 Sign date/Time: 10/23/24 1715 Kristen Foster RECORDING STUDIO SET UP WORKER IMG XR PROCEDURES Final Resul t documented in this encounter Visit Diagnoses Not on filedocumented in this encounter Care Teams Tubular Riveter Relationship Specialty Start Date End Date Amna Phillip FNP [facility] [place] [address] PCP - General 09/30/22 documented as of this encounter
--- OUTSIDE RECORDS SUMMARY | 2025-01-17 14:07 | XMS_ITS | Clinical Summary ---
Author Organization [facility] Address [address] [place] [address] Phone Care Team Providers Care Records Management Technician Name Role Phone Amna Phillip [facility] Primary Care Provider Allergies Active Allergy Reactions Criticality Noted Date Comments Amitriptyline Headache,Other 01/23/2016 Blurry vision and dizziness Carbamazepine Diarrhea,Nausea And Vomiting,Rash,Other Low 11/28/2014 Chicken Derived Other 11/14/2015 GI upset Chicken Meat Extract 11/14/2015 GI upset Chocolate Rash 07/25/2024 [place] Hives,Other 12/16/2014 Codeine Rash,Other Low 11/28/2014 Egg Diarrhea 12/16/2014 Says had allergy test which was pos for allergy eggs Egg White Diarrhea,Other 12/16/2014 Says had allergy test which was pos for allergy eggs Ibuprofen Nausea And Vomiting,Other,Rash 11/28/2014 Lactose Diarrhea,Other 12/16/2014 Peanut 11/14/2015 Itching Penicillins Diarrhea,Nausea And Vomiting,Other,Rash 11/28/2014 Pineapple Hives,Other 12/16/2014 Medications atorvastatin (LIPITOR) 10 mg tablet Take 1 tablet (10 mg total) by mouth 1 (one) time each day. 11/25/202 4 Active escitalopram (LEXAPRO) 20 mg tablet [...] Apply topically 2 times daily. 4 Active Vitamin B-2 100 mg tablet Take 1 tablet (100 mg total) by mouth 1 (one) time each day. Active traZODone (DESYREL) 100 mg tablet TAKE 1 1/2- 2 TABLET BY MOUTH AT BEDTIME Active lactose-reduced food (BOOST HIGH PROTEIN ORAL) Take by mouth. A ctive cholecalciferol (VITAMIN D-3) 50 mcg (2,000 unit) capsule Take 1 capsule (2,000 Units total) by mouth 1 (one) time each day. 5 Active pantoprazole (PROTONIX) 40 mg EC tabletIndication s:Gastroesophage al reflux disease without esophagitis Take 1 tablet (40 mg total) by mouth 2 (two) times a day. 180 tablet 3 5 08/22/19 26 Active Active Problems Problem Noted Date Diagnosed Date Fibromyalgia 08/16/2024 Overview (08/16/2024): 11/17/15 saw Neuro- dx migraine- begin imitrex 50mg po bid- r/t 3 tue07/31/15 saw Neuro no chg- r/t 6 month 07/23/15 rec approval for tens unit from [facility] 07/16/15: [facility]. Saw Sukhjinder Arce MD No improvement on left after injection, worsening on right. No improvement after cauda equina inj either. Pain os 710, lower back rad to b/l LE, worsened [...] unit given. Lyrica minimally helpful 06/05/15;Tel call [phone] Kalin: [facility]SS saw 05/12/15: saw Dr. Ja Piña [phone] had EMG RLE-Normal,s/s worse with weight bearing activities; has wheel chair/walker, and cane per note. Assessment: radicuplothy, lumbar region MRI of the spine, no sig right sided nerve impingment, EMG of the right normal, PT minimally helpful, lyrica with mild improvement, possible SI joint mediated pain, plan injection of SI joint Marisela done 04/22/15 =6 ( normal) 02/13/[address] Hale at [facility] : plan cauda equina steroid injection Began [address] Avis Prajapati Saw ENT for dizziness 07/07/12: no vestibular dysfunction, normal hearing Thrush in 03/31/12, saw same ENT, Gerardo Bravo, at #[phone] amb with mild ataxia Dec 2010; Used cane with limp with ambulating in Apr 2011 MRI lumbar Spine 05/15/13: Subtle convex right lumbar scoliosis. Subtle disc bulge at L5-S1. Overall canal and foramen dimensions are acceptable the distal thoracic cord. Lumbar roots appear normal Began lyrica approx Fall [address] Galvan appt 01/07/15: saw Geoffrey at [facility]. Dx with MILD DDD confirmed by MRI, no surg required. Can try steroid injection May 2014, appt with Dr. Brent Boyd, At [facility] #[phone]; dx was 1.spells,2.depresion,3.chronic daily headache,4.lumbar radiculopathy,5.Fibromyalgia, Tx [...] as above in addition #6, optic neuritis, [place] normal MRI disc bulge L5-S1, Saw Dr. Diaz who sent her to psych, Saw Dr. Thomas, who said no surg. , plan : image MRI of orbits/face/neck, begin Amitripyline 100po qhs, stop trazadone 150 BHN Ricardo Hutchins is rx'er at [facility] for the pt Lyrica/Lexapro/Klonopin RICARDO GONZALEZ, PMHNP-[address] ?[id number] ? 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 Simple renal cyst 10/22/2021 Leukocytopenia 10/13/2020 Overview (08/16/2024): Lab Results Component Value Date WBC 2.8* [...] omeprazole, Refer to pcp and neurologist to [facility] medications Med list in 2013: Tylenol,gaviscon,alprazolam,benztropine,vit b 12,keppra 500 bid, prilosec 20,metamucil,biotene mouth wash,zoloft 100 daily,simvastatin 20mg daily,trazodone 150mg hs Jan 2022: Heme at [facility] also says no need for further workup, 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, Refer to pcp and neurologist to [facility] medications Med list in 2013: Tylenol,gaviscon,alprazolam,benztropine,vit b 12,keppra 500 bid, prilosec 20,metamucil,biotene mouth wash,zoloft 100 daily,simvastatin 20mg daily,trazodone 150mg hs Stage 3a chronic kidney disease (CMS/HCC V24, CM S/HCC V28) 10/13/2020 Calculus of gallbladder with out cholecystitis without obstruction 08/24/2019 Overview (08/16/2024): Noted on CT-multiple lucent stones, no inflammatory changes Kidney lesion 08/24/2019 Overview (08/16/2024): MRI abodimen Jun 2020: Simple cysts of malrotated kidney at [facility] CT abdomen-06/2019-11 mm lesion in the upper pole of the left kidney, recommendation for US. Simple hepatic cyst 08/24/2019 Overview (08/16/2024): Noted on CT-9 mm simple cyst in the lateral segment of liver Wheelchair dependence 01/29/2019 H/O: hysterectomy 07/24/2018 Seasonal allergic rhinitis 12/07/2017 GERD (gastroesophageal reflux disease) 7 Assessment & Plan (08/21/2024 4:34 PM EDT): Stable and controlled with pantoprazole 40mg BID. Continue as directed. Orders: pantoprazole (PROTONIX) 40 mg EC tablet; Take 1 tablet (40 mg total) by mouth 2 (two) times a day. Insomnia due to anxiety and fear 07/19/2016 Overview (08/16/2024): PSYCH F/U [facility] ((Osiris Malone)) Severe episode of recurrent major depressive disorder, without psychotic features (CMS/HCC V24, CMS/HCC V28) 07/19/2016 Overview (08/16/2024): Psych f/u at [facility] on [facility] (Osiris Malone) Suicidal ideation 04/23/2015 Overview (08/16/2024): 04/02/15 + Suicidal ideation, sect 12 to ER; held inpatient + plan + SI [facility] pt [facility] Ricardo Hutchins is rx'er at [facility] for the pt Lyrica/Lexapro/Klonopin RICARDO GONZALEZ, PMHNP-[address] ?[phone] ? NEED RELEASE FOR PSYCH coordination ofcare Chondromalacia of both patellae 01/24/2015 Overview (08/16/2024): 05/24/16Saw Brain IRVIN Palomo- - bilat- pt will do PT- will r/t 6-8 weeks Saw Wenceslao Palomo PA-C September 2014 11/14/12 [facility] no sig. Abnormality right knee film 11/10/11 bilat knee pain normal exam Right ankle film normal 11/10/11 Normal left ankle film 11/10/11 BMD 04/02/11 normal bone density [facility] 01/03/04 normall elft foot film; normal left ankle bilat knee 03/04/05 norml Lumbar radiculopathy 01/24/2015 Overview (08/16/2024): August 2023-Followed by physiatry at [address], stable-gets injections 09/15/15 saw [facility]SS TENS unti 50% improvement- no injection advised- conservative therapy only- pain likely Fibromyalgia in etiology 05/15/13 [facility] Mild facet hypertrophy within the caudal LS [...] post disc bulge C4-5, and C5-6 Pituitary microadenoma (CMS/HCC V24, CMS/HCC V28 ) 12/20/2014 Overview (08/16/2024): Mri of the brain done 12/11/14 at [facility]. For ? Optic neuritis left optic nerve lesion, spells.[facility] does not have report form [...] Mri of the brain done 12/11/14 at [facility]. For ? Optic neuritis left optic nerve lesion, spells.[facility] does not have report form [...] in the left maxillary sinus Hyperlipidemia 11/28/2014 Surgical History Surgery Date Site/Laterality Comments COLONOSCOPY 06/24/2023 recall 06/2030 ESOPHAGOGASTRODUODENOSCOPY 10/09/2019 COLONOSCOPY 04/12/2013 ESOPHAGOGASTRODUODENOSCOPY 04/12/2013 Family History Medical History Relation Name Comments Diabetes Mother Christa Roth Colon cancer Neg Hx Colon polyps Neg Hx Relation Name Status Comments Mother Christa Roth Social History Tobacco Use Types Packs/Day Years [...] - Inhaled Oxygen Concentration - - Weight 72.1 kg (159 lb) 08/21/2024 1:29 PM EDT Height 162.6 cm (5' 4 ) 08/21/2024 1:29 PM EDT Body Mass Index 27.29 08/21/2024 1:29 PM EDT Plan of Treatment Upcoming Encounters Date Type Department Care Team (Late st Contact Info) Description 02/21/2025 2:30 PM EDT Office Visit Orthopedic Surgery [facility] [address] [place] [id number] Gabriella Carvalho PA [address] [facility] [address] [place] [address] Health Maintenance Due Date Last Done Comments Breast Cancer Screening 1965 DTaP,Tdap,and Td Vaccines (1 - Tdap) 1982 Pneumococcal Vaccine: 50+ Years (1 of 2 - PCV) 1982 Cervical Cancer Screening: Pap Smear 1984 Hepatitis C Screening 04/04/2022 Social Influencers of Health Screening 04/04/2022 Depression Screening 05/02/2024 COVID-19 Vaccine (8 - Moderna risk ) 12/31/2024 01/04/2024, 01/27/2023, 01/26/2022, Additional history exists Influenza Vaccine (#1) 2024 , 02/16/2022, 02/16/2021, Additional history exists Cholesterol Screening (Lipid Panel) 03/13/2029 03/13/2024, 03/13/2024, 12/17/2022, Additional history exists Colorectal Cancer Screening: Colonoscopy 09/13/2034 09/13/2024 HIV Screening Completed 11/29/2014 Zoster Vaccines Completed 11/18/2018, 07/21/2018 RSV Immunization Adult Patients Completed 04/26/2023 HIB Vaccines Aged Out No longer eligi ble based on patient's age to complete this topic HPV Vaccines Aged Out No longer eligi ble based on patient's age to complete this topic Hepatitis A Vaccines Aged Out No long er eligible based on patient's age to complete this topic Hepatitis B Vaccines Aged Out No long er eligible based on patient's age to complete this topic IPV Vaccines Aged Out No longer eligi ble based on patient's age to complete this topic MMR Vaccines Aged Out No longer eligi ble based on patient's age to complete this topic Meningococcal ACWY Vaccine Aged Out N o longer eligible based on patient's age to complete this topic Meningococcal B Vaccine Aged Out No l onger eligible based on patient's age to complete this topic RSV Immunization Patients Under 20 months Aged Out No longer eligible based on patient's age to complete this topic Varicella Vaccines Aged Out No longer eligible based on patient's age to complete this topic Procedures Procedure Name Priority Date/Time Associated Diagnosis Comments COLONOSCOPY Routine 09/13/2024 1:18 PM EDT from Last 3 Months or Most Recently Relevant to Health Maintenance Results * COLONOSCOPY (09/13/2024 1:18 PM EDT) Anatomical Region Laterality Modality Endoscopy us Historical Provider GI~PROCEDURE ORDERABLES F inal Result from Last 3 Months or Most Recently Relevant to Health Maintenance Insurance [facility] Member Subscriber Plan / Payer (Ef fective 2016-Present) Name:CHRISTIANE KELLY Relation to Subscriber:Self Name:Christiane Kelly Payer ID:[id number] Group ID:[id number] Type:Not on file Address: [place] [address] [phone] Advance Directives Documents on File Type Date Recorded 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
--- OUTSIDE RECORDS SUMMARY | 2025-01-17 14:07 | XMS_ITS | Clinical Summary ---
Author Organization [facility] Address [address] [place] [address] Care Team Providers Care Straightening Press Operator Name Role Phone Garth Rosario Primary Care Provider [phone] Source Comments PLEASE NOTE, if this patient [...] and Vomiting 11/28/2014 Chicken 11/14/2015 GI upset [place] Hives 12/16/2014 Codeine Rash 11/28/2014 Eggs Diarrhea 12/16/2014 Says had allergy test which was pos for allergy eggs Ibuprofen Nausea and Vomiting 11/28/2014 Lactose Diarrhea 12/16/2014 Peanuts 11/14/2015 Itching Penicillins Diarrhea,Nausea and Vomiting 11/28/2014 Pineapple Hives 12/16/2014 Pork 11/14/2015 GI upset [place] 11/14/2015 GI upset Medications Miscellaneous Medical Supply miscIndications:Pi tuitary microadenoma ([facility]),Fibromyal khari by miscellaneous route once daily. rollator Lifetime [...] BY MOUTH EVERY DAY 90 Tablet 1 12/19/19 25 Active Active Problems Problem Noted Date Diagnosed Date Anxiety 09/29/2023 Stage 3a chronic kidney disease (CMS & HHS-HCC) 08/27/2022 Simple hepatic cyst 08/24/2019 Overview (08/24/2019): Noted [...] Not using CPAP Sleep study 12/03/16 at [facility] ordered via Dr. 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 NEED RELEASE FOR PSYCH coordination ofcare Chondromalacia of both patellae 01/24/2015 Overview (06/11/2016): 05/24/16Saw Brain IRVIN Palomo- - bilat- pt will do PT- will r/t 6-8 weeks Saw Wenceslao Palomo PA-C September 2014 11/14/12 [facility] no sig. Abnormality right knee film 11/10/11 bilat knee pain normal exam Right ankle film normal 11/10/11 Normal left ankle film 11/10/11 BMD 04/02/11 normal bone density [facility] 01/03/04 normall elft foot film; normal left ankle bilat knee 03/04/05 norml Lumbar radiculopathy 01/24/2015 Overview (09/29/2023): August 2023-Followed by physiatry at [address] , [facility]-gets injections 09/15/15 saw PVSS TENS unti 50% [...] C5-6 Pituitary microadenoma/ MRI done Nov 2014 [facility] 12/20/2014 Overview (10/23/2021): September 2021: has done imaging on head but is not sure what results were Mri of the brain done 12/11/14 at [facility]. For ? 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 Saw Sukhjinder Arce MD [...] homes TENS unit. Hold injections 06/02/15 saw PVSAnna, ; no improvement in buttock pain after [...] unit given. Lyrica minimally helpful 06/05/15;Tel call [phone] Kalin: PVSS saw 05/12/15: saw Dr. Ja Piña [phone] had EMG RLE-Normal,s/s worse with weight bearing activities; has wheel chair/walker, and cane per note. Assessment: radicuplothy, lumbar region MRI of the spine, no sig right sided nerve impingment, EMG of the right normal, PT minimally helpful, lyrica with mild improvement, possible SI joint mediated pain, plan injection of SI joint Marisela done 04/22/15 =6 ( normal) 02/13/[address] Hale at [facility] : plan cauda equina steroid injection Began [address] Avis Prajapati Saw ENT for dizziness 07/07/12: no vestibular dysfunction, normal hearing Thrush in 03/31/12, saw same ENT, Gerardo Bravo, at #[phone] amb with mild ataxia Dec 2010; Used cane with limp with ambulating in Apr 2011 MRI lumbar Spine 05/15/13: Subtle convex right lumbar scoliosis. Subtle disc bulge at L5-S1. Overall canal and foramen dimensions are acceptable the distal thoracic cord. Lumbar roots appear normal Began lyrica approx Fall [address] Galvan appt 01/07/15: saw Gefofrey at [facility]. Dx with MILD DDD confirmed by MRI, no surg required. Can try steroid injection May 2014, appt with Dr. Brent Boyd, At [facility] #[phone]; dx was 1.spells,2.depresion,3.chronic daily headache,4.lumbar radiculopathy,5.Fibromyalgia, Tx [...] as above in addition #6, optic neuritis, QUILEUTE normal MRI disc bulge L5-S1, Saw Dr. Diaz who sent her to psych, Saw Dr. Thomas, who said no surg. , plan : image MRI of orbits/face/neck, begin Amitripyline 100po qhs, stop trazadone [address] Ricardo Hutchins is rx'er at [facility] for the pt Lyrica/Lexapro/Klonopin RICARDO GONZALEZ, PMHNP-BC [address] [place] [address] ?[phone] ? Resolved Problems Problem Noted Date Diagnosed Date Resolved Date Suspected COVID-19 virus infection 09/07/2019 10/23/2021 Overview (09/07/2019): COVID-19 Tracking [reviewed or updated 09/07/2019] Exposure to confirmed case or travel risk - No Date that symptoms began - 08/27 Patient risk factors for severe COVID-19: Immunocompromised: (Many conditions can cause person to be immunocompromised including: cancer treatment, smoking, bone marrow or organ transplantation, immune deficiencies, poorly controlled HIV or AIDS (CD4<200), and prolonged use of corticosteroids and other immune weakening medications) Healthcare worker or director of first impressions? No COVID-19 Tested? - No Is patient ? No Other chest pain [...] 01/24/2015 Overview (01/24/2015): [place] [facility] [place] [facility], dx with Seborrhic derm/dermatosis papulosa/and acneform [...] sleep study done 09/2010went to [facility] Pap smear for cervical cance r screening/ PT has No uterus,cervix, tubes or ovaries secondary to surgery for menoraghia, no pelvic required in future 01/02/2015 01/24/2015 Overview (01/24/2015): Done by Dr. Jason Chen, [address] 03/09/11 VAGINAL NIL ( no mention of HPV or ECC) Pt without cervix, no further pap/pelvic needed, Pt no tubes or ovaries either, removed for benign cause, menorrhagia Irritable bowel syndrome with constipation 11/28/2014 10/23/2021 Overview (08/31/2016): Saw GI 01/22/16- Dr. Sonia Khoury MD- [phone]- increaased PPI to bid- added carafate for a ew week- req that she Move and lose weight! abd U/s 05/03/12 [facility] Mild Hepatic fatty infiltrate Migraines 01/12/2015 Immunizations Immunization Administration Dates Next Due Flu, Recombinant, 18y+, [...] Sign Reading Time Taken Comments Blood Pressure 134/84 10/12/2024 4:52 PM EDT Pulse 81 10/12/2024 4:52 PM EDT Temperature 37.2 C (98.9 F) 10/12/2024 4:52 PM EDT Respiratory Rate 14 10/12/2024 4:52 PM EDT Oxygen Saturation 95% 03/13/2024 2:23 PM EST Inhaled Oxygen Concentration - - Weight 74.8 kg (165 lb) 10/12/2024 4:52 PM EDT Height 162.6 cm (5' 4 ) 03/20/2024 10:44 AM EST Body Mass Index 28.32 03/20/2024 10:44 AM EST Plan of Treatment Upcoming Encounters Date Type Department Care Team (Late st Contact Info) Description 02/26/2025 2:00 PM EDT Office Visit [facility] [address] [place] [phone] Marlene, TylorDELLA [address] [place] [address] Health Maintenance Due Date Last Done Comments Anxiety Screening [address] Colonography 2008 Fecal DNA 2008 Flexible Sigmoidoscopy 2008 Imm-Pneumococcal 50+ (1 of 1 - PCV) 2013 FIT/gFOBT 04/01/2014 04/01/2013 Colonoscopy 04/17/2023 04/17/2013 Colorectal Cancer Screening 04/17/2023 Alcohol and Drug Screen 05/02/2024 09/29/19 24, 01/04/2023, 07/30/2022, Additional history exists Depression Monitoring 06/13/2024 03/13/2024 , 09/29/2023, 01/04/2023, Additional history exists Lipid Screening 03/13/2025 03/13/2024, 11/30, 10/26/2021, Additional history exists Tobacco Screening 03/13/2025 03/13/2024 Medicare Annual Wellness Visit 06/13/2025 06/13/2024 Breast Cancer Screening (Mammogram) 07/24/2025 07/24/2024, 07/04/2024, 07/01/2023, Additional history exists Hypertension Screening (#1) 10/12/2025 Diabetes Screening 03/13/2027 03/13/2024, 1 05/13/2023, 12/17/2022, Additional history exists HIV Screening Completed 11/29/2014 Hepatitis C Screening Completed 11/29/2014 Imm-Zoster, Recombinant Completed 11/18/2018, 07/21 Imm-Influenza Discontinued 06/06/2023, 01/30, 02/16/2021, Additional history exists [id number] Completed 01/04/2024, 01/01, 01/26/2022, Additional history exists Cervical Ablation/Cold-Knife Conization Discontinued Cervical Cancer Screening Discontinued Cervical Cryotherapy Discontinued Colposcopy Discontinued Endometrial Biopsy Discontinued Excision/Leep Discontinued HPV Genotyping Discontinued Imm-DTaP/Tdap/Td Discontinued Pap + HPV Discontinued Pap Smear Discontinued Vaginal Pap Discontinued Vulvoscopy Discontinued Procedures Procedure Name Priority Date/Time Associated Diagnosis Comments HISTORIC MAMMOGRAM 07/24/2024 3: 00 AM EDT ANNUAL WELLNESS VISIT SCANNED DOCUMENT 06/13/2024 3:00 AM EST COMPREHENSIVE METABOLIC PANEL Routine [...] to Health Maintenance Results * HISTORIC MAMMOGRAM (07/24/2024 3:00 AM EDT) 07/24/2024 3:00 AM EDT Garth JORDANP IMG MAMMO Final Res ult * ANNUAL WELLNESS VISIT SCANNED DOCUMENT (06/13/2024 3:00 AM EST) 06/13/2024 3:00 AM EST Garth Rosario ENVIRONMENTAL SERVICES ASSISTANT SCAN OTHER ORDERS Final R esult * (ABNORMAL) LIPID PANEL (03/13/2024 3:30 PM EST) CHOLESTEROL, TOTAL 201(H) <200 mg/dL [facility] HDL CHOLESTEROL 74 > OR = 50 mg/dL [facility] TRIGLYCERIDES 75 <150 mg/dL [facility] LDL-CHOLESTEROL 111(H) 99 mg/dL (calc) [facility] Comment: Reference range: <100 Desirable range <100 mg/dL for primary prevention; <70 mg/dL for patients with CHD or diabetic patients with > or = 2 CHD risk factors. LDL-C is now calculated using the Isabell calculation, which is a validated novel method providing better accuracy than the Friedewald equation in the estimation of LDL-C. Ar ARMENDARIZ et al. VISHAL. 2013;310(19): 3275-0406 (http://education.Nutrisystem/faq/BMR744) CHOL/HDLC RATIO 2.7 <5.0 (calc) [facility] NON-HDL CHOLESTEROL 127 <130 mg/dL (calc) [facility] Comment: For patients with diabetes plus 1 major ASCVD risk factor, treating to a non-HDL-C goal of <100 mg/dL (LDL-C of <70 mg/dL) is considered a therapeutic option. Blood Blood / Unknown 03/13/2024 3 :30 PM EST 03/13/2024 3:32 PM EST Narrative [facility] - 03/14/2024 4:40 AM EST FASTING:NO Garth Rosario [facility] - BLOOD DRAW Final Re sult [facility] [address] [address], [place] [address] [address] * (ABNORMAL) COMPREHENSIVE METABOLIC PANEL (03/13/2024 3:30 PM EST) GLUCOSE 87 65 - 139 mg/dL [facility] Comment: Non-fasting reference interval UREA NITROGEN (BUN) 17 7 - 25 mg/dL [facility] CREATININE (blood) 1.30(H) 0.50 - 1.05 mg/dL [facility] EGFR 47(L) > OR = 60 mL/min/1. 73m2 [facility] BUN/CREATININE RATIO 13 6 - 22 (calc) [facility] SODIUM 140 135 - 146 mmol/L [facility] POTASSIUM 4.7 3.5 - 5.3 mmol/L [facility] CHLORIDE 105 98 - 110 mmol/L [facility] CARBON DIOXIDE 30 20 - 32 mmol/L [facility] CALCIUM 9.2 8.6 - 10.4 mg/dL [facility] PROTEIN, TOTAL 6.5 6.1 - 8.1 g/dL [facility] ALBUMIN 4.2 3.6 - 5.1 g/dL [facility] GLOBULIN 2.3 1.9 - 3.7 g/dL (calc) [facility] ALBUMIN/GLOBULI N RATIO 1.8 1.0 - 2.5 (calc) [facility] BILIRUBIN, TOTAL 0.3 0.2 - 1.2 mg/dL [facility] ALKALINE PHOSPHATASE 62 37 - 153 U/L [facility] AST 20 10 - 35 U/L [facility] ALT 28 6 - 29 U/L [facility] Blood Blood / Unknown 03/13/2024 3 :30 PM EST 03/13/2024 3:32 PM EST Narrative [facility] - 03/14/2024 4:40 AM EST FASTING:NO Garth Rosario [facility] - BLOOD DRAW Edited R esult - Final [facility] [address] [address], [facility] [address] [address] * HEPATITIS A,B,C PANEL (11/29/2014 10:18 AM EDT) HEPATITIS B SURFACE ANTIBODY NEGATIVE NEGATIVE [facility] SURFACE ANTIGEN NEGATIVE NEGATIVE [facility] C VIRUS DIAGNOSTIC NEGATIVE NEGATIVE [facility] HEPAT[facility] A ANTIBODY TOTAL NEGATIVE NEGATIVE [facility] HEPATITIS B CORE ANTIBODY NEGATIVE NEGATIVE [facility] Blood specimen (specimen) Blood / Unknown 11/29/2014 10:18 AM EDT 11/29/2014 10:34 AM EDT Narrative [facility] - 11/29/2014 1:07 PM EDT [facility] [address] [place] [address] PT ID [id number] ORD# [id number] [facility] - BLOOD DRAW Edited Resul t - Final [facility] [address] [place] [address], [place] [phone] * HIV-1 & HIV-2 ANTIBODIES (11/29/2014 10:18 AM EDT) HIV 1 AND 2 ANTIBODY SCREEN NEGATIVE NEGATIVE [facility] Blood specimen (specimen) Blood / Unknown 11/29/2014 10:18 AM EDT 11/29/2014 10:[address] [facility] - 11/29/2014 1:56 PM EDT [facility] [employer] [address] [place] [address] PT ID [id number] ORD# [id number] [facility] - BLOOD DRAW Final Result Performing Organization Address City/[facility]/ZIP Co de Phone Number [address] [address], [place] [phone] from Last 3 Months or Most Recently Relevant to Health Maintenance Insurance [facility] Care Teams Straightening Press Operator Relationship Specialty Start Date End Date Garth Rosario FNP [address] [place] [address] PCP - General Internal Medicine 02/15/20
[2025-01-17 18:28] LABS: Anion Gap 9 (12-20); Blood Urea Nitrogen 12 mg/dL (9-16); Calcium 9.5 mg/dL (8.4-10.2); Carbon Dioxide 30 mmol/L (22-29); Chloride 103 mmol/L (96-108); Estimated Glomerular Filt Rate 48; Potassium 4.1 mmol/L (3.3-5.1); Sodium 138 mmol/L (135-145)
== END 2025-01-17 11:48 | disposition home or self-care (01) ==
LOC: HO.HKASLDS 11:47
PROVIDERS: Visit Provider Internal Medicine Nephrology
DX: I12.9 Hypertensive chronic kidney disease with stage 1 through stage 4 chronic kidney disease, or unspecified chronic kidney disease (principal); N18.2 Chronic kidney disease, stage 2 (mild); N28.1 Cyst of kidney, acquired; Q63.2 Ectopic kidney; E21.3 Hyperparathyroidism, unspecified
CPT/HCPCS: 36415; 80051; 82310; 82565; 84520

== ENCOUNTER 2025-02-22 09:15 | Outpatient (AMB) | payer OTHER, SELFPAY ==
--- OUTSIDE RECORDS SUMMARY | 2024-02-22 16:11 | XMS_ITS | Encounter Summary ---
Author Organization [facility] Address [address] [place] [address] Care Team Providers Care Plastic Parts Fabricator Trimmer Name Role Phone Amna Phillip Primary Care Provider Encounter Details Date Type Department Care Team (Late st Contact Info) Description 02/22/2024 4:11 PM EDT Hospital Encounter TH HISTORIC ENCOUNTERS EASTERN CONVERSION ONLY Kristen Foster, JERMAINE [address] [place] [address] Social History Tobacco Use Types Packs/Day Years [...] AM EST Office Visit Orthopedic Surgery - [place] [address] [place] [id number] Gabriella Carvalho PA [address] [place] [address] documented as of this encounter Procedures Procedure Name Priority Date/Time Associated Diagnosis Comments CR SHOULDER LT MIN 2 VIEW Routine 02/22/2024 5:15 PM EDT documented in this encounter Results * CR SHOULDER LT MIN 2 VIEW (02/22/2024 5:15 PM EDT) Anatomical Region Laterality Modality Radiographic Chloé ging 02/22/2024 4:19 PM EDT Narrative 02/22/2024 5:15 PM EDT [facility] Diagnostic Imaging Department [address] [place] [address] Patient: JANICECHRISTIANE /Age/Sex: 1965 - 58 - F Unit#: [id number] Location/Status: SPDIGEN/REG CLI Mnemonic/Ordering Site: [facility] Ordering [...] Procedure Note Cyril Main MD - 02/28/2024 [facility] Diagnostic Imaging Department [address] [place] [address] Patient: CHRISTIANE KELLY Pardeep /Age/Sex: 1965 - 58 - F Unit#: [id number] Location/Status: SPDIGEN/REG CLI Mnemonic/Ordering Site: [facility] Ordering Physician: KRISTEN FOSTER MICROFABRICATION ENGINEER MANAGER CR Shoulder LT Min 2 View - 02/22/24 - [id number] Report Status:Signed EXAMINATION: LEFT SHOULDER CLINICAL INFORMATION: [...] 02/22/241712 Sign date/Time: 02/22/241714 us Kristen Foster MICROFABRICATION ENGINEER MANAGER IMG XR PROCEDURES Final Resul t documented in this encounter Visit Diagnoses Not on filedocumented in this encounter Care Teams Plastic Parts Fabricator Trimmer Relationship Specialty Start Date End Date Amna Phillip FNP [facility] [place] [address] PCP - General 09/30/22 documented as of this encounter
--- OUTSIDE RECORDS SUMMARY | 2025-02-21 12:06 | XMS_ITS | Encounter Summary ---
Author Organization [facility] Address [address] [place] [address] Care Team Providers Care Call Center Support Consultant Name Role Phone Amna Phillip Primary Care Provider Encounter Details Date Type Department Care Team (Latest Contact Info) Description 02/21/2025 12:06 PM EDT - 02/21/2025 11:59 PM EDT Hospital Encounter [facility] Xray [address] [place] [phone] Chronic right shoulder pain Discharge Disposition: Home or Self Care Social History Tobacco Use Types Packs/Day Years [...] on file documented as of this encounter Medications at Time of Discharge atorvastatin (LIPITOR) 10 mg tablet Take 1 tablet (10 mg total) by mouth 1 (one) time each day. 03/26/2024 cholecalciferol (VITAMIN D-3) 50 mcg (2,000 unit) capsule Take 1 capsule (2,000 Units total) by mouth 1 (one) time each day. 08/09/2024 escitalopram (LEXAPRO) 20 mg tablet Take 1 tablet (20 mg total) by mouth 1 (one) time each day in the morning. lactose-reduced food (BOOST HIGH PROTEIN ORAL) Take by mouth. lamoTRIgine (LaMICtal) 150 mg tablet TAKE 1 TABLET BY MOUTH ONCE A DAY DIRECTED IN ADDITION TO 25MG TABLET, TOTAL DOSE= 175MG lamoTRIgine (LaMICtal) 25 mg tablet TAKE 1 TABLET BY MOUTH EVERY DAY (WITH 150MG) DIRECTED lidocaine (LIDODERM) 5 % patch Place 1 patch on the skin daily. 03/13/2024 loratadine (CLARITIN) 10 mg tablet Take 1 tablet (10 mg total) by mouth once daily as needed. 04/15/2021 meclizine (ANTIVERT) [address] 1 TABLET INTO MOUTH, CHEW AND SWALLOW 3 (THREE) TIMES DAILY NEEDED FOR DIZZINESS methocarbamoL (ROBAXIN) 500 mg tablet Take 1 tablet (500 mg total) by mouth. miscellaneous medical supply [facility] by Other route daily. 07/04/2015 nystatin (MYCOSTATIN) 100,000 unit/gram powder Apply topically 2 times daily. 09/29/2023 pantoprazole (PROTONIX) 40 mg EC tabletIndications :Gastroesophageal reflux disease without esophagitis Take 1 tablet (40 mg total) by mouth 2 (two) times a day. 180 tablet 3 08/21/2024 traZODone (DESYREL) 100 mg tablet TAKE 1 1/2- 2 TABLET BY MOUTH AT BEDTIME Vitamin B-2 100 mg tablet Take 1 tablet (100 mg total) by mouth 1 (one) time each day. documented as of this encounter Discharge Disposition Disposition Code Departure Means Destination Home or Self Care documented in this encounter Plan of Treatment Upcoming Encounters Date Type Department Care Team (Late st Contact Info) Description 04/19/2025 8:30 AM EST Office Visit Orthopedic Surgery - [place] [address] [facility] [address] [place] [address] Gabriella Carvalho PA 175 [facility] [address] [place] [address] documented as of this encounter Procedures Procedure Name Priority Date/Time Associated Diagnosis Comments XR SHOULDER 2+ VIEWS RIGHT Routine 02/21/2025 12:30 PM EDT Chronic right shoulder pain documented in this encounter Results * XR Shoulder 2+ Views Right (02/21/2025 12:30 PM EDT) Anatomical Region Laterality Modality Upper Extremities, Shoulder Right Radi ographic Imaging 02/22/2025 7:44 AM EDT Impressions 02/22/2025 7:45 AM EDT Normal examination. Code 91743 -------- FINAL REPORT -------- Dictated By: Ja Azul Dictated Date: 02/22/2025 07:44 ET Assigned Physician: Ja Azul Reviewed and Electronically Signed By: Ja Azul Signed Date: 02/22/2025 07:45 ET Workstation ID: [id number] Transcribed By: Self Edit Transcribed Date: 02/22/2025 07:44 ET Narrative 02/22/2025 7:45 AM EDT HISTORY: The patient is a 59-year-old female with chronic right shoulder pain, nontraumatic. FINDINGS: AP, right posterior oblique, transscapular, and axillary views of the right shoulder are obtained. The study demonstrates no fracture, dislocation, arthritic change, or other bony abnormality. No soft tissue abnormality is seen. Procedure Note Ja Azul MD - 02/22/2025 HISTORY: The patient is a 59-year-old female with chronic right shoulderpain, nontraumatic. FINDINGS: AP, right posterior oblique, transscapular, and axillary viewsof the right shoulder are obtained. The study demonstrates no fracture,dislocation, arthritic change, or other bony abnormality. No soft tissueabnormality is seen. IMPRESSION: Normal examination. Code 22183 -------- FINAL REPORT -------- Dictated By: Ja Azul Dictated Date: 02/22/2025 07:44 ET Assigned Physician: Ja Azul Reviewed and Electronically Signed By: Ja Azul Signed Date: 02/22/2025 07:45 ET Workstation ID: [id number] Transcribed By: Self Edit Transcribed Date: 02/22/2025 07:44 ET us Gabriella ENRIQUEZ IMG XR PROCEDURES Final Resul t documented in this encounter Visit Diagnoses Diagnosis Chronic right shoulder pain Pain in joint, shoulder region documented in this encounter Care Teams Call Center Support Consultant Relationship Specialty Start Date End Date Amna Phillip FNP [address] [place] [phone] PCP - General 09/30/22 documented as of this encounter
--- OUTSIDE RECORDS SUMMARY | 2025-02-21 14:30 | XMS_ITS | Encounter Summary ---
Author Organization [facility] Address [address] [place] [address] Care Team Providers Care Time Study Statistician Name Role Phone Amna PhillipP Primary Care Provider Reason for Referral * Orthopedic (Routine) - Pending Review Specialty Diagnoses / Procedures Referred By Selene bustos Referred To Contact Orthopedic Surgery / Orthopaedic Surgery Diagnoses Rotator cuff arthropathy of right shoulder Chronic pain of both shoulders Procedures L Inj/Asp: R subacromial bursa Gabriella Carvalho PA [address] [address] Phone: tel: fax: Referral ID Status Reason Start Date Expiration Date V isits Requested Visits Authorized [id number] Pending Review 02/21/2025 02/21/2026 1 1 * Consultation (Routine) - Pending Review Specialty Diagnoses / Procedures Referred By Selene bustos Referred To Contact Massage Diagnoses Rotator cuff arthropathy of right shoulder Rotator cuff arthropathy of left shoulder Chronic pain of both shoulders Cervicalgia Gabriella Carvalho PA [address] [address] Phone: tel: fax: Referral ID Status Reason Start Date Expiration Date Visits Requested Visits Authorized [id number] Pending Review Specialty Services Required 02/21/2026 1 1 Reason for Visit * Reason Comments Pain Pain Encounter Details Date Type Department Care Team (Late st Contact Info) Description 02/21/2025 2:30 PM EDT Office Visit Orthopedic Surgery - [place] [address] [place] [address] Gabriella Carvalho PA [address] [place] [address] Rotator cuff arthropathy of right shoulder (Primary Dx); Rotator cuff arthropathy of left shoulder; Chronic pain of both shoulders; Cervicalgia Social History Tobacco Use Types Packs/Day Years [...] on file documented as of this encounter Progress Notes * MINA Ibarra - 02/21/2025 2:30 PM EDTAssociated Order(s): L Inj/Asp: R subacromial bursa Post-Procedure Diagnose(s): Chronic pain of both shoulders; Rotator cuff arthropathy of right shoulder Patient: Christiane Kelly : 1965 Date: 02/21/2025 Reason For Visit: Chief Complaint Patient presents with Left Shoulder - Pain Right Shoulder - Pain Christiane Kelly is a 59 y.o. year old right handed female who presents for follow-up evaluation regarding Chief Complaint Patient presents with Left Shoulder - Pain Right Shoulder - Pain I have obtained verbal consent from Christiane Kelly prior to the recording. I have advised Sudha Kelly that she may refuse the recording and require the recording to be turned off at any time during this encounter. Significant past history: Wheelchair use outside the home due to Low back pain with radiculopathy. Uses a cane and walker in the home. Fibromyalgia Occupation: not employed Previous surgeries/injuries to affected shoulder: none Previous surgeries/injuries to neck. none Last encounter: Within department: 02/21/2025 With this provider: 02/21/2025 HPI: This is a 59 y.o. female with chronic left shoulder pain and more recently right shoulder pain. Both shoulder pains are similar. Patient has a complex medical history. She is wheelchair bound (LBP and radiculopathy as well as other lower extremity pathology, outside the home and uses her upper extremities for weightbearing at home with walker and that she does have some neck pain but shoulder pain is clearly the more aggravating symptom. She also has an underlying diagnosis of fibromyalgia. Chronic neck pain is ongoing and has not improved with shoulder injection therapy. She was recommended to follow-up with her glacing machine tender regarding her neck pain. She is palnning on making an appointment with Dr Fernandez in the near future Left shoulder: 50% improved with injection therapy on the left and that is still the case and we are9 months since last injection. Recommended physical therapy to improve range of motion but this aggravated her symptomatology and her and her elected to do range of motion exercises on their own at home with 's assistance. They have made excellent progress on their own and she now has symmetrical ROM Right shoulder: No specific treatment to date other than exercise program that she has performed bilaterally History of Present Illness -The patient, a 59-year-old female, presents with right shoulder arthralgia, accompanied by her . Left Shoulder Pain - Last injection- May 2024 for a left shoulder injection, which provided approximately 50% symptomatic relief x 9 months and ongoing --location: Both shoulder similar pain location: superior and lateral left side a bit more anterior. Continues to complain of left sided neck pain (not relieved with subacromial injection). Left sideradiates to deltoid region. Right shoulder with localized superior lateral shoulder pain, without neck or deltoid pain -Below elbow: none -Neck Pain: posterior and left sided neck pain -Numbness and tingling: none -Rest Pain: Bilateralonly 4/10; -Night Pain: Bilateral 10/10; every night and positional - Improved ability to perform activities at shoulder height or above, although experiences intermittent flare-ups - Difficulty with ADLs - requires assistance with dressing and hygiene tasks Pain Management - Manages pain with acetaminophen 1300 mg daily and has discontinued meloxicam as per PCP - Previously utilized Lidoderm patches and topical analgesics and is considering resuming their useintermittently. encouraged to try at night - Employs a Thera-Band for exercise Additional Information - Engages in independent exercises to enhance mobility and theraband strengthening - Has not consulted a glacing machine tender for neck pain, but has seen one for low back pain and plans on making an appointment - Requesting referral for massgae therapy SOCIAL HISTORY Performs arm exercises independently to improve motion. DOI: atraumatic Duration: Fall 2023- left; spring 2024 - right Treatments previously tried: PT: Abbreviated course due to aggravation of pain HEP: Bilateral will work on getting theraband for ROM and strengthening HEP program which was reviewed in detail today Tylenol: 1300 mg daily NSAIDs: No Nsaids as per PCP: Trial Meloxicam daily in evening with good relief; historically Celebrex not cover by insurance Topical : Occasionally as needed Lidoderm patch and rub Injection therapy: Left Subacromial : 05/23/24 50% improvement still thinks injection is working slightly-very little improvement in neck pain. Other treatments: none Referrals: Physiatry pending Diagnostic studies previously performed: Xray shoulder: 1 Left: 02/22/24 Right 02/21/25 CT scan Shoulder: none to date MRI scan Shoulder: none to date ACTIVE MEDICATIONS: Current Outpatient Medications Medication Instructions atorvastatin (LIPITOR) 10 mg tablet 1 tablet, Daily cholecalciferol (VITAMIN D-3) 2,000 Units, Daily escitalopram (LEXAPRO) 20 mg, Every morning lactose-reduced food (BOOST HIGH PROTEIN ORAL) Take by mouth. lamoTRIgine (LaMICtal) 150 mg tablet TAKE 1 TABLET BY MOUTH ONCE A DAY DIRECTED IN ADDITION TO 25MG TABLET, TOTAL DOSE= 175MG lamoTRIgine (LaMICtal) 25 mg tablet TAKE 1 TABLET BY MOUTH EVERY DAY (WITH 150MG) DIRECTED lidocaine (LIDODERM) 5 % patch 1 patch, Daily loratadine (CLARITIN) 10 mg, Daily PRN meclizine (ANTIVERT) [address] 1 TABLET INTO MOUTH, CHEW AND SWALLOW 3 (THREE) TIMES DAILYAS NEEDED FOR DIZZINESS methocarbamoL (ROBAXIN) 500 mg miscellaneous medical supply [facility] Daily nystatin (MYCOSTATIN) 100,000 unit/gram powder 2 times daily pantoprazole (PROTONIX) 40 mg, oral, 2 times daily traZODone (DESYREL) 100 mg tablet TAKE 1 1/2- 2 TABLET BY MOUTH AT BEDTIME Vitamin B-2 100 mg, Daily ALLERGIES: Allergies Allergen Reactions Amitriptyline Headache and Other Blurry vision and dizziness Chicken Derived Other GI upset Chicken Meat Extract GI upset Chocolate Rash Bayamon Hives and Other Egg Diarrhea Says had allergy test which was pos for allergy eggs Egg White Diarrhea and Other Says had allergy test which was pos for allergy eggs Ibuprofen Nausea And Vomiting, Other and Rash Lactose Diarrhea and Other Peanut Itching Penicillins Diarrhea, Nausea And Vomiting, Other and Rash Pineapple Hives and Other Carbamazepine Diarrhea, Nausea And Vomiting, Rash and Other Codeine Rash and Other Physical Exam: Estimated body mass index is 27.29 kg/m?? as calculated from the following: Height as of 08/21/24: 1.626 m (64 ). Weight as of 08/21/24: 72.1 kg (159 lb). Physical Exam APPEARANCE: Alert and in no acute distress Shoulder: Right shoulder: Mild infraspinatus tenderness, moderate anterior shoulder pain, forward flexion and abduction 160 degrees with pain at terminal degrees, negative painful arc, strength 5/5 supraspinatus with pain, strength 5/5 subscapularis with pain, positive impingement, positive Hernandez, negative Bucyrus's; Left shoulder: Strength 5/5 infraspinatus with mild pain Inspection: No bony abnormalities, normal muscle bulk symmetry Vascular: Warm and well perfused in the affected extremity and no peripheral edema noted. Palpation: Right AC joint/distal clavicle region: Mild anterior shoulder /proximal biceps region: Moderate posterior periscapular region: Mild lateral acromial /greater tuberosity region: Mild Range of motion: Abduction: 160 degrees with pain at terminal degrees Forward Flexion: 160 degrees with pain at terminal degrees External Rotation: 45 Internal Rotation: Not tested Muscle strength: Supraspinatus (empty can test): Strength 5/5 with pain infraspinatus (external rotation strength with arm at the side): Right shoulder: Mild infraspinatustenderness; Left shoulder: Strength 5/5 with mild pain subscapularis (belly press test): Strength 5/5 with pain Special tests: Painful arc test: Negative Impingement Test: Positive Hernandez: Positive Bucyrus's: Negative Additional exam details: None Labs: No results found for: CREATININE No results found for: HGBA1C Imaging: X-rays reviewed personally by myself. Report pending. . Superior migration of the humeral head noted. Mild narrowing of the glenohumeral joint without periarticular osteophytes noted. CR SHOULDER LT MIN 2 [facility] Diagnostic Imaging Department [address] [place] [address] Patient: CHRISTIANE KELLY /Age/Sex: 1965 - 58 - F Unit#: [id number] Location/Status: SPDIGEN/REG CLI Mnemonic/Ordering Site: [facility] Ordering Physician: OMI FOSTER KENNEL WORKER CR Shoulder LT Min 2 View - 02/22/24 - 0094 Report Status:Signed EXAMINATION: LEFT SHOULDER CLINICAL INFORMATION: [...] etiology for pain demonstrated Dictating Physician: Pardeep CHAU BRET MD Electronically Signed by: Pardeep CHAU BRET MD Dic Date/Time: 02/22/241712 Sign date/Time: 02/22/241714 CR SHOULDER LT MIN 2 [facility] Diagnostic Imaging Department [address] [place] [address] Patient: CHRISTIANE KELLY /Age/Sex: 1965 - 58 - F Unit#: [id number] Location/Status: SPDIGEN/REG CLI Mnemonic/Ordering Site: [facility] Ordering Physician: OMI FOSTER NP CR Shoulder LT Min 2 View - 02/22/241642 Report Status:Signed EXAMINATION: LEFT SHOULDER CLINICAL INFORMATION: [...] etiology for pain demonstrated Dictating Physician: Pardeep CHAU BRET MD Electronically Signed by: Pardeep CHAU BRET MD Dic Date/Time: 02/22/241712 Sign date/Time: 02/22/241714 ASSESSMENT AND PLAN: This is a 59 y.o. female with a 6-month history of left shoulder pain. And a new complaint of similar pain on right shoulder Patient has a complex medical history. She is wheelchair bound (LBP and radiculopathy as well as other lower extremity pathology) outside the home and uses her upper extremities for weightbearing at home with walker and that she does have some neck pain but shoulder pain is clearly the more aggravating symptom. She also has an underlying diagnosis of fibromyalgia. After much discussion regarding 1. Rotator cuff arthropathy of right shoulder 2. Rotator cuff arthropathy of left shoulder 3. Chronic pain of both shoulders 4. Cervicalgia using pictures, the following treatment plan was mutually agreed upon. All questions were answered. Assessment & Plan Right shoulder pain X-ray indicates rotator cuffArthropathy . Goal: strengthen rotator cuff to alleviate pain. Referral for massage therapy provided, may need to be paid out of pocket. Use Lidoderm patches for nighttime pain relief, rub once or twice daily asneeded. Avoid simultaneous use of patch and rub on same area. Continue exercises to maintain motion, focus on strengthening with Thera-Band. Right shoulder subacromial Cortisone injection administered today, 90% improvement. with lidocaine effect. Full effect in up to 2 weeks. If increased pain tomorrow, apply ice and take Tylenol 1300 mg. -Activity: proceed with activity as tolerated. stay below pain threshold. -Rehabilitation: Referral for massage therapy, Continue exercises to maintain motion, focus on strengthening with Thera-Band. -Pain Management: Tylenol 1300 mg, Lidoderm patches, Cortisone injection. offered and accepted today right Follow-up: 2 months. Left shoulder pain Left shoulder bothers her, especially with movement or sleeping on that side, pain spikes to 9/10 at night. Improvement with shoulder height and above activities bilaterally, intermittent flares moreon the left. Use Lidoderm patches for nighttime pain relief, rub once or twice daily as needed. Avoid simultaneous use of patch and rub on same area. Continue exercises to maintain motion, focus on strengthening with Thera-Band. -Activity: proceed with activity as tolerated. stay below pain threshold. -Rehabilitation: Continue exercises to maintain motion, focus on strengthening with Thera-Band. -Pain Management: Lidoderm patches. Follow-up: 2 months. Diagnostic studies: Shoulder X-rays: Left: 02/22/24 Right: 02/21/25 Shoulder MRI: Not indicated at this time Rehabilitation: Continue HEP and Recommend buttermaker continuous churn. Patient encouraged to continue to progress rotator cuff strengthening program, as well as continuing range of motion exercises for maintenance. Orders Placed This Encounter Ambulatory referral to Massage Therapy Follow up in about 2 months (around 04/23/2025) for Bilateral, Shoulder. Future appointments: 04/19/2025 Procedure: L Inj/Asp: R subacromial bursa Indications: pain Details: 22 G needle, posterior approach Medications: 3 mg BUPivacaine HCl 0.5 %; 3 mL lidocaine 1 %; 40 mg triamcinolone acetonide 40 mg/mL Informed Consent: Laterality: Right Relevant images/test results available and reviewed: no Health status cleared: N/A Procedure/treatment, purpose, treatment alternatives, risks/potential complications and benefits explained: yes Risk/complications/benefits details: Risks and benefits associated with the injection reviewed which can include but not limited to infection, bleeding, bruising, transient synovitis, no improvement in symptoms. Patient questions answered: yes Patient agrees, verbalizes understanding, and wants to proceed: yes Consent given by: Patient Informed consent discussion completed by Physician/JAYSHREE with patient: Verbal Pre-procedure timeout performed: yes Post injection instructions given and patient advised to ice the area tonight. Questions answered. Patient tolerated procedure well. No complications encountered. Post injection examination revealed: 90 percent improvement in clinical exam and pain Today's documentation was made using voice recognition software.This note may contain grammatical errors secondary to this software. MINA Ibarra documented in this encounter Plan of Treatment Upcoming Encounters Date Type Department Care Team (Late st Contact Info) Description 04/19/2025 8:30 AM EST Office Visit Orthopedic Surgery - [place] [address] [facility] [address] [place] [phone] Gabriella Carvalho PA [address] [address] Scheduled Referrals Name Type Priority Associated Diagnoses Order Schedule Ambulatory referral to Massage Therapy Outpatient Referral Routine Rotator cuff arthropathy of right shoulder Rotator cuff arthropathy of left shoulder Chronic pain of both shoulders Cervicalgia 1 Occurrences starting 02/21/2025 until 02/21/2026 documented as of this encounter Procedures Procedure Name Priority Date/Time Associated Diagnosis Comments WA ARTHROCENTESIS/ASPI RATION/INJECTION MAJOR JOINT/BURSA W/O U/S GUIDANCE Routine 02/21/2025 2:30 PM EDT Rotator cuff arthropathy of right shoulder Chronic pain of both shoulders documented in this encounter Results * WA ARTHROCENTESIS/ASPIRATION/INJECTION MAJOR JOINT/BURSA W/O U/S GUIDANCE (02/21/2025 2:30 PM EDT) Gabriella Adair PA - 02/21/2025 2:30 PM EDT MINA Ibarra 02/21/2025 3:32 PM L Inj/Asp: R subacromial bursa Indications: pain Details: 22 G needle, posterior approach Medications: 3 mg BUPivacaine HCl 0.5 %; 3 mL lidocaine 1 %; 40 mg triamcinolone acetonide 40 mg/mL Informed Consent: Laterality: Right Relevant images/test results available and reviewed: no Health status cleared: N/A Procedure/treatment, purpose, treatment alternatives, risks/potential complications and benefits explained: yes Risk/complications/benefits details: Risks and benefits associated with the injection reviewed which can include but not limited to infection, bleeding, bruising, transient synovitis, no improvement in symptoms. Patient questions answered: yes Patient agrees, verbalizes understanding, and wants to proceed: yes Consent given by: Patient Informed consent discussion completed by Physician/JAYSHREE with patient: Verbal Pre-procedure timeout performed: yes Gabriella ENRIQUEZ IN CLINIC/BEDSIDE ORDERABLES Final Result documented in this encounter Visit Diagnoses Diagnosis Rotator cuff arthropathy of right shoulder- Primary Rotator cuff arthropathy of left shoulder Chronic pain of both shoulders Cervicalgia documented in this encounter Administered Medications Inactive Administered Medications - up to 3 most recent administrations Medication Order MAR Action Action Date Dose Rate Site BUPivacaine HCl (MARCAINE) 0.5 % injection 3 mg 3 mg, Once PRN Procedure, Starting on Elizabeth 02/21/25 at 1430, For 1 doseIndications:Rotator cuff arthropathy of right shoulder,Chronic pain of both shoulders Given 02/21/2025 2:30 PM EDT 3 mg lidocaine (XYLOCAINE) 1 % injection 3 mL 3 mL, Once PRN Procedure, Starting on Elizabeth 02/21/25 at 1430, For 1 doseIndications:Rotator cuff arthropathy of right shoulder,Chronic pain of both shoulders Given 02/21/2025 2:30 PM EDT 3 mL triamcinolone acetonide (KENALOG-40) 40 mg/mL injection 40 mg 40 mg, Once PRN Procedure, Starting on Elizabeth 02/21/25 at 1430, For 1 doseIndications:Rotator cuff arthropathy of right shoulder,Chronic pain of both shoulders Given 02/21/2025 2:30 PM EDT 40 mg documented in this encounter Care Teams Time Study Statistician Relationship Specialty Start Date End Date Amna Phillip FNP [address] [place] [address] PCP - General 09/30/22 documented as of this encounter
--- NOTE | 2025-02-22 09:20 | MHC.OFFVIS ---
Intake Visit Reasons: 6 month f/u Allergies amitriptyline Allergy (Verified 02/22/25 09:33) Unknown chocolate Allergy (Verified 02/22/25 09:33) Unknown codeine Allergy (Verified 02/22/25 09:33) Unknown egg Allergy (Verified 02/22/25 09:33) Unknown ibuprofen Allergy (Verified 02/22/25 09:33) Unknown milk Allergy (Verified 02/22/25 09:33) Unknown Penicillins Allergy (Verified 02/22/25 09:33) Unknown pineapple Allergy (Verified 02/22/25 09:33) Unknown chicken derived Adverse Reaction (Verified 02/22/25 09:33) Gastrointestinal Upset Medication List - Last Reconciled 02/22/25 by Sayra Fernandez CNP atorvastatin 10 mg PO DAILY cholecalciferol (vitamin D3) 50 mcg PO DAILY escitalopram oxalate 20 mg PO DAILY lamotrigine 25 mg PO DAILY lamotrigine 150 mg PO DAILY loratadine (Allergy Relief (loratadine)) 10 mg PO DAILY meclizine 25 mg PO TID methocarbamol 500 mg PO TID nystatin topical DAILY pantoprazole 40 mg PO BID riboflavin (vitamin B2) (Vitamin B-2) 100 mg PO DAILY trazodone 200 mg PO BEDTIME PRN HPI Comments Details: She was having some generalized body pains. Gets some episodes of eyes jumping side to side for less than 30 minutes and has trouble seeing during that time. May have some dizziness with it. Has upcoming eye exam. Dizziness off and on. Taking meclizine as needed. Walking with walker at home. One fall in 09/2024 when trying to swat a fly. Gets occasional bad headaches with pain to either side of head, throbbing-type, with photophobia, sonophobia, and sometimes nausea. Tylenol as needed not helping. No episodes of passing out. No seizure-like episodes. Ongoing stress and anxiety, working with therapist and psychiatrist. Sleep was okay. Got injection to R shoulder that helped. Generalized body pains from FM with pains in back, shoulders, legs. Balance off at times, uses cane. Few dizzy spells each week, usually when changing positions quickly or if she does not drink enough water. Occasional twitching movements of head. Saw exercise science internship, had 24hr Holter in 09/2022 and echo in 01/2023 which were apparently okay. On 02/01/2020, she had another syncope in kitchen for a minute. No seizure-like activity. On 10/03/2019, fell and hit back of head after passing out from severe dehydration. Had some dizziness and feeling out of it. Intermittent numbness and tingling and soreness in feet has resolved. Whole body hurts, low and mid back pain, joint pain. No chest pain or palpitation. High level of stress. Anxiety and depression. 24hr ambulatory EEG normal. Hx of fibromyalgia with generalized body aches and pains, depression, anxiety, and questionable seizure disorder. EEG normal in the past. MRI of C spine showed minimal disc disease. Hx of blackouts in the past. Still seeing kidney doctor. Getting inj for back pain at pain clinic which helps some. [facility] Medical History Hypertension CKD (chronic kidney disease) stage 2, GFR 60-89 ml/min Hyperparathyroidism Malrotation of kidney Renal cyst Surgical History History of facial surgery History of hysterectomy H/O hernia repair History of surgical removal of ganglion cyst Family History Mother Diabetes Maternal Aunt Kidney disease Cancer Social History Alcohol intake: never Patient Tobacco Use Status: Never used Tobacco Review of Systems Const Denies chills, Denies daytime sleepiness, Reports difficulty sleeping, Reports fatigue, Denies fever(s), Denies frequent falls, Reports headache(s), Denies increased appetite, Denies poor appetite, Denies snoring, Denies weakness, Denies weight gain and Denies weight loss Eyes Denies loss of vision ENT Denies vertigo, Reports dizziness, Reports headache(s) and Denies neck pain Card Denies chest pain at rest, Denies chest pain with activity, Denies syncope, Denies leg edema, Denies palpitations, Denies dyspnea and Denies dyspnea on exertion Resp Denies cough, Denies dyspnea, Denies dyspnea on exertion and Denies snoring GI Denies abdominal pain, Denies constipation, Denies heartburn, Denies diarrhea and Denies nausea Denies urinary frequency, Denies urinary incontinence and Denies urinary urgency Musc Denies abnormal gait, Denies back pain, Denies myalgias, Denies arthralgias, Denies neck pain, Denies numbness and Denies tingling Neuro Denies abnormal gait, Denies vertigo, Reports dizziness, Denies syncope, Denies frequent falls, Reports headache(s), Denies lack of coordination, Denies loss of vision, Denies memory loss, Denies numbness, Denies Other visual disturbances, Denies restless legs, Denies seizure-like activity, Denies tingling, Denies paresthesias, Denies tremor(s) and Denies weakness Psych Reports anxiety, Reports depression, Denies auditory hallucinations, Denies memory loss and Denies visual hallucinations Endo Reports fatigue and Denies palpitations Physical Exam Const Other: General Appearance:? normal, in no acute distress. Heart:? S1, S2 normal, no murmurs. Lungs:? clear anteriorly and posteriorly. Musculoskeletal:? normal. Extremities:? no edema. Psych:? alert, oriented, cognitive function intact, cooperative with exam. Neuro Other: Abnormal Neurological Findings:?In wheelchair. Mental Status: alert and oriented X 3. Normal attention, orientation, memory, and affect. Cranial Nerves: Pupils are equal, round, and reactive to light. External ocular muscles are intact. Visual diane are full, no ptosis. Face is symmetrical, no facial weakness or droop. Facial sensations are normal. Tongue protrudes in midline. Palate elevates symmetrically. Shoulder shrugging is normal Motor Examination: Normal muscle tone, bulk and strength. No atrophy or fasciculations. No drift of the extended upper extremities. DTR 2+. Plantars are flexor. Sensory Exam: Normal light touch, temperature, pinprick, vibration, and joint-position sensations. Rhomberg sign is absent. Coordination: No ataxia. No titubation. Gait Exam: In wheelchair. Cerebellar Signs: [id number] is okay. Extrapyramidal System: No tremor, rigidity with normal facial expressions. No bradykinesia. No bradyphrenia. Normal arm swing and posture. No propulsion or retropulsion. Speech: Normal. Results Reviewed Results Reviewed: EEG 10/15/2022: WNL Assessment & Plan Assessment & Plan (1) Migraine: Code(s): G43.909 - Migraine, unspecified, not intractable, without status migrainosus Category: Medical Qualifiers: Migraine type: unspecified Status migrainosus presence: without status migrainosus Intractability: not intractable Qualified Code(s): G43.909 - Migraine, unspecified, not intractable, without status migrainosus Plan: Start sumatriptan 50mg 1 tablet as needed for migraines, use/side effects reviewed. (2) Syncope: Code(s): R55 - Syncope and collapse Category: Medical Qualifiers: Syncope type: unspecified Qualified Code(s): R55 - Syncope and collapse (3) Tension headache: Code(s): G44.209 - Tension-type headache, unspecified, not intractable Category: Medical (4) Benign neoplasm of pituitary gland: Code(s): D35.2 - Benign neoplasm of pituitary gland Category: Medical (5) Conversion disorder: Code(s): F44.9 - Dissociative and conversion disorder, unspecified Category: Medical Plan . Medications: New sumatriptan succinate take 1 tab at onset of headache; if no relief may repeat 1 tab after at least 2 hrs; PO 10 tabs 5RF 30 days Coding Level of Care Code Est Pt Level 4 (38669) Diagnoses Migraine without status migrainosus, not intractable, unspecified migraine type G43.909 Migraine type: unspecified Status migrainosus presence: without status migrainosus Intractability: not intractable Syncope, unspecified syncope type R55 Syncope type: unspecified Tension headache G44.209 Benign neoplasm of pituitary gland D35.2 Conversion disorder F44.9
--- OUTSIDE RECORDS SUMMARY | 2025-02-22 10:04 | XMS_ITS | Encounter Summary ---
Author Organization [facility] Address [address] [place] [address] Care Team Providers Care Forestry Fire Aide Name Role Phone Amna PhillipP Primary Care Provider Reason for Visit * Reason Onset Date Comments order 02/21/2025 Encounter Details Date Type Department Care Team (Late st Contact Info) Description 02/21/2025 Telephone Orthopedic Surgery - [place] [address] [place] [phone] Gabriella Carvalho PA [address] [place] [address] Social History Tobacco Use Types Packs/Day Years [...] as of this encounter Progress Notes * Valeria Weathers MA - 02/21/2025 11:16 AM EDT Pt made aware. * Carmelita Quiana - 02/21/2025 8:45 AM EDT Patient is calling stating that she Needs an Xray Order for her left shoulder, to be sent, to [facility] Xray Dept, as she has an appt this afternoon with Gabriella Burgess. She state will will also do the right shoulder, that order has already be sent Thanks. documented in this encounter Plan of Treatment Upcoming Encounters Date Type Department Care Team (Late st Contact Info) Description 04/19/2025 8:30 AM EST Office Visit Orthopedic Surgery - [place] [address] [address] Gabriella Carvalho PA 175 [facility] [address] [place] [address] documented as of this encounter Visit Diagnoses Not on filedocumented in this encounter Care Teams Forestry Fire Aide Relationship Specialty Start Date End Date Amna Phillip FNP [address] [place] [address] PCP - General 09/30/22 documented as of this encounter
--- OUTSIDE RECORDS SUMMARY | 2025-02-22 10:04 | XMS_ITS | Continuity of Care Document ---
Author Name Nakul Miranda Address [address] [place] [id number] Organization Unknown Address [address] [place] [address] Medications No known medications Problems No known problems
--- OUTSIDE RECORDS SUMMARY | 2025-02-22 10:04 | XMS_ITS | Clinical Summary ---
Author Organization [facility] Address [address] [place] [address] Phone Care Team Providers Care Medical Secretary Receptionist Name Role Phone Amna Phillip [facility] Primary Care Provider Allergies Active Allergy Reactions Criticality Noted Date Comments Amitriptyline Headache,Other 01/23/2016 Blurry vision and dizziness Carbamazepine Diarrhea,Nausea And Vomiting,Rash,Other Low 11/28/2014 Chicken Derived Other 11/14/2015 GI upset Chicken Meat Extract 11/14/2015 GI upset Chocolate Rash 07/25/2024 [place] Hives,Other 12/16/2014 Codeine Rash,Other Low 11/28/2014 Egg [...] 180 tablet 3 5 08/22/19 26 Active Hospital, Clinic, or Other Facility Administered Medication Ordered Dose Route Frequency Start Date End Date Status BUPivacaine HCl (MARCAINE) 0.5 % injection 3 mgIndications:Rotato r cuff arthropathy of right shoulder,Chronic pain of both shoulders 3 mg Once PRN Procedure 02/21/2025 02/21/2025 Ended lidocaine (XYLOCAINE) 1 % injection 3 mLIndications:Rotato r cuff arthropathy of right shoulder,Chronic pain of both shoulders 3 mL Once PRN Procedure 02/21/2025 02/21/2025 Ended triamcinolone acetonide (KENALOG-40) 40 mg/mL injection 40 mgIndications:Rotato r cuff arthropathy of right shoulder,Chronic pain of both shoulders 40 mg Once PRN Procedure 02/21/2025 02/21/2025 Ended Active Problems Problem Noted Date Diagnosed Date Fibromyalgia 08/16/2024 Overview (08/16/2024): 11/17/15 saw Neuro- dx migraine- begin imitrex 50mg po bid- r/t 3 mon 07/31/15 saw Neuro no chg- r/t 6 month 07/23/15 rec approval for tens unit from [facility] 07/16/15: [facility]. Saw Sukhjinder Arce [...] unit given. Lyrica minimally helpful 06/05/15;Tel call [phone] Kalin: PVSS saw 05/12/15: saw Dr. Ja Piña [phone] had EMG RLE-Normal,s/s worse with weight bearing activities; has wheel chair/walker, and cane per note. Assessment: radicuplothy, lumbar region MRI of the spine, no sig right sided nerve impingment, EMG of the right normal, PT minimally helpful, lyrica with mild improvement, possible SI joint mediated pain, plan injection of SI joint Marisela done 04/22/15 =6 ( normal) 02/13/[address] Hale at [facility] : plan cauda equina steroid injection Began [address] Avis Prajapati Saw ENT for dizziness 07/07/12: no vestibular dysfunction, normal hearing Thrush in 03/31/12, saw same ENT, Gerardo Bravo, at #[phone] amb with mild ataxia Dec 2010; Used cane with limp with ambulating in Apr 2011 MRI lumbar Spine 05/15/13: Subtle convex right lumbar scoliosis. Subtle disc bulge at L5-S1. Overall canal and foramen dimensions are acceptable the distal thoracic cord. Lumbar roots appear normal Began lyrica approx Fall [address] Galvan appt 01/07/15: saw Geoffrey at [facility]. Dx with MILD DDD confirmed by MRI, no surg required. Can try steroid injection May 2014, appt with Dr. Brent Boyd, At [facility] #[phone]; dx was 1.spells,2.depresion,3.chronic daily headache,4.lumbar radiculopathy,5.Fibromyalgia, Tx was Lyrica 150mg po bid, start Chlodiazepoxide-Amitriptyline 10-25mg po qd, follow up in July 2014 24 hr ambulatory EEG Normal; dx was same as above, increase lyrica to 200po bid follow up in 6 mon returned in Nov 2014. No seiz, + fullness of head , + aches/pains, + panic dx was same as above in addition #6, optic neuritis, CURYUNG normal MRI disc bulge L5-S1, Saw Dr. Diaz who sent her to psych, Saw Dr. Thomas, who said no surg. , plan : image MRI of orbits/face/neck, begin Amitripyline 100po qhs, stop trazadone 150 BHN Ricardo Hutchins is rx'er at [facility] for the pt Lyrica/Lexapro/Klonopin RICARDO Vic JAIMESANJANANICOLE, PMHNP-BC [address] [place] [address] ?[id number] ? Obstructive apnea 08/16/2024 Anxiety 09/29/2023 Acquired [...] omeprazole, Refer to pcp and neurologist to [facility] medications Med list in 2013: Tylenol,gaviscon,alprazolam,benztropine,vit b 12,keppra 500 bid, prilosec 20,metamucil,biotene mouth wash,zoloft 100 daily,simvastatin 20mg daily,trazodone 150mg hs Jan 2022: Heme at [employer] also says no need for further workup, 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, Refer to pcp and neurologist to [facility] medications Med list in 2013: Tylenol,gaviscon,alprazolam,benztropine,vit b 12,keppra 500 bid, prilosec 20,metamucil,biotene mouth wash,zoloft 100 daily,simvastatin 20mg daily,trazodone 150mg hs Stage 3a chronic kidney disease ([facility] V24, CM /[facility] V28) 10/13/2020 Calculus of gallbladder with out [...] and fear 07/19/2016 Overview (08/16/2024): PSYCH F/U [facility] (([facility])) Severe episode of recurrent major depressive disorder, without psychotic features ([facility] V24, [facility] V28) 07/19/2016 Overview (08/16/2024): Psych f/u at [facility] on [facility] ([facility]) Suicidal ideation 04/23/2015 Overview (08/16/2024): 04/02/15 + Suicidal ideation, sect 12 to ER; held inpatient + plan + SI BHN pt Regino Hutchins is rx'er at [facility] for the pt Lyrica/Lexapro/Klonopin RICARDO GONZALEZ, PMHNP-BC [address] [place], [place] ?[phone] ? NEED RELEASE FOR PSYCH coordination ofcare Chondromalacia of both patellae 01/24/2015 Overview (08/16/2024): 05/24/16Saw Brain IRVIN Palomo- - bilat- pt will do PT- will r/t 6-8 weeks Saw Wenceslao Palomo PA-C September 2014 11/14/12 [facility] no sig. Abnormality right knee film 11/10/11 bilat knee pain normal exam Right ankle film normal 11/10/11 Normal left ankle film 11/10/11 BMD 04/02/11 normal bone density [facility] 01/03/04 normall elft foot film; normal left ankle bilat knee 03/04/05 norml Lumbar radiculopathy 01/24/2015 Overview (08/16/2024): August 2023-Followed by physiatry at [facility]-gets injections 09/15/15 saw PVSS TENS unti 50% improvement- no injection advised- conservative therapy only- pain likely Fibromyalgia in etiology 05/15/13 merc Mild facet hypertrophy within the caudal LS [...] Mri of the brain done 12/11/14 at [facility]. For ? Optic neuritis left optic nerve lesion, spells.[facility] does not have report form [...] Mri of the brain done 12/11/14 at [facility]. For ? Optic neuritis left optic nerve lesion, spells.[facility] does not have report form [...] in the left maxillary sinus Hyperlipidemia 11/28/2014 Encounters Date Type Department Care Team Description 02/21/2025 2:30 PM EDT Office Visit Orthopedic Surgery - [place] [address] [facility] [address] [place] [phone] Gabriella Carvalho PA Rotator cuff arthropathy of right shoulder (Primary Dx); Rotator cuff arthropathy of left shoulder; Chronic pain of both shoulders; Cervicalgia 02/21/2025 12:06 PM EDT - 02/21/2025 11:59 PM EDT Hospital Encounter [facility] Xray [address] [place] [phone] Chronic right shoulder pain Discharge Disposition: Home or Self Care 02/21/2025 Telephone Orthopedic Surgery [facility] [address] [phone] Gabriella Carvalho PA from Last 3 Months Surgical History Surgery Date Site/Laterality Comments COLONOSCOPY [...] 8:30 AM EST Office Visit Orthopedic Surgery [facility] [address] [phone] Gabriella Carvalho PA [address] [address] Health Maintenance Due Date Last Done Comments Breast Cancer Screening 1965 DTaP,Tdap,and Td Vaccines (1 - Tdap) 1982 Cervical Cancer Screening: Pap Smear 1984 Pneumococcal Vaccine: 50+ Years (1 of 1 - PCV) 2013 Hepatitis C Screening 04/04/2022 Social Influencers of Health Screening 04/04/2022 Depression Screening 05/02/2024 COVID-19 Vaccine (8 - Moderna risk season) 2024 01/04/2024, 01/27/2023, 01/26/2022, Additional history exists Influenza [...] Procedure Name Priority Date/Time Associated Diagnosis Comments FL ARTHROCENTESIS/ASPIR ATION/INJECTION MAJOR JOINT/BURSA W/O U/S GUIDANCE Routine 02/21/2025 2:30 PM EDT Rotator cuff arthropathy of right shoulder Chronic pain of both shoulders XR SHOULDER 2+ VIEWS RIGHT Routine 02/21/2025 12:30 PM EDT Chronic right shoulder pain COLONOSCOPY Routine 09/13/2024 1:18 PM EDT from Last 3 Months or Most Recently Relevant to Health Maintenance Results * FL ARTHROCENTESIS/ASPIRATION/INJECTION MAJOR JOINT/BURSA W/O U/S GUIDANCE (02/21/2025 2:30 PM EDT) Narrative Gabriella Carvalho PA - 02/21/2025 2:30 PM EDT MINA [...] with patient: Verbal Pre-procedure timeout performed: yes us Gabriella ENRIQUEZ IN CLINIC/BEDSIDE ORDERABLES Final Result * XR Shoulder 2+ Views Right (02/21/2025 12:30 PM EDT) Anatomical Region Laterality Modality Upper Extremities, Shoulder Right Radi ographic Imaging 02/22/2025 7:44 AM EDT Impressions 02/22/2025 7:45 AM EDT Normal examination. Code 11980 -------- FINAL REPORT -------- Dictated By: Ja Azul Dictated Date: 02/22/2025 07:44 ET Assigned Physician: Ja Azul Reviewed and Electronically Signed By: Ja Azul Signed Date: 02/22/2025 07:45 ET Workstation ID: [id number] Transcribed By: Self Edit Transcribed Date: 02/22/2025 [...] tissueabnormality is seen. IMPRESSION: Normal examination. Code 77023 -------- FINAL REPORT -------- Dictated By: Ja Azul Dictated Date: 02/22/2025 07:44 ET Assigned Physician: Ja Azul Reviewed and Electronically Signed By: Ja Azul Signed Date: 02/22/2025 07:45 ET Workstation ID: [id number] Transcribed By: Self Edit Transcribed Date: 02/22/2025 07:44 ET us Gabriella ENRIQUEZ IMG XR PROCEDURES Final Resul t * COLONOSCOPY (09/13/2024 1:18 PM EDT) Anatomical Region Laterality Modality Endoscopy us Historical Provider GI~PROCEDURE ORDERABLES F inal Result from Last 3 Months or Most Recently Relevant to Health [place] [address] [facility] Member Subscriber Plan / Payer (Ef fective 2016-Present) Name:CHRISTIANE KELLY Relation to Subscriber:Self Name:Christiane Kelly Payer ID:[id number] Group ID:[id number] Type:Not on file Address: [address] [place] [address] Advance Directives Documents on File Type Date Recorded 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
--- OUTSIDE RECORDS SUMMARY | 2025-02-22 10:04 | XMS_ITS | Encounter Summary ---
Author Organization [facility], Later [facility] Address [address] [place] [address] Encounters * CPT with Nakul Miranda at [employer] on 2024-10-11 { reasonForRequest : Patient feels sore from a fall a few days ago, fell on her back. Pain is in her butt, and spine area. , patientReports : , denies&qu ot;:[ Falls with head strike and LOC , Falls from a standing position, no LOC, patient is amnestic to the event , Falls with isolated injury and deformity noted to limb , Falls with inability to move post fall , Cool extremities after fall or injury ], chiefComplaints : Back Pain, Falls , pmh : Osteoarthritis, Fib romyalgia, Hysterectomy , allergies : Codeine , otherAllergies :n ull, painAssessment : , visitOutcome : , additionalComments : 59 y.o female complains of Back Pain, Falls\n\nAdditional PMH- lesion to kidney,has 2 ureters and has had hernia surgery\n\nPatient has more allergies, but unsure, has a list in the home.\n\nPatient reports losing her balance Tuesday night, and having a fall.\nShe denies head strike, no LOC and does not take a blood thinner.\nShe fell primarily on her shoulder, back and coccyx.\nShe is able to move all extremities, no deformities.\nHer thinks there may be some bruising to her back, no swelling.\nShe endorses severe pain to her back and spine, having difficulty sitting, leaning back and bending forward.\nShe denies any headaches or dizziness.\nShe is aware we do not do any imaging.\n\nI provided information on the mobile health provider response time and advised the patient and/or caregiver to monitor reported signs and symptoms. I discussed the warning signs of when to seek emergency care. } 59 yof found sitting up on couch, awake and mentating appropriately in no obvious distress. Pt presents with acute on chronic pain related to a fall last Tuesday, October 05. She uses assistive devices, including walker and cane due to existing balance issues, reports she lost her balance as is typical and fell backwards against the door. No head strike on hard surface, resulting lower back pain that has persisted/worsened since the incident. Denies LOC. denies bowel or bladder issues. Denies numbness or tingling radiating to other areas or to extremities. Does report sciatica and osteoarthritic shoulder pain also pre- existing. Denies any new or worsening issues ambulating. Pain from recent fallis described as persistent to the coccyx area and across lower back. Reports it does not feel similar to typical chronic back pain which is more related to upper back as well as sciatica. Visually the area looks normal with no erythema, swelling, hematoma. Endorses increased pain on palpation. She is warm and well perfused throughout. no pedal edema noted . She is prescribed meloxicam and methocarbamol on a schedule, does not seem to be helping. She tried a dose of Tylenol yesterday with littleeffect. Denies weakness, dizziness, confusion. Denies any other symptoms, including chest pain, shortness of breath, headache. Dr Barry consulted, discusses the benefit of imaging which we cannot do in the home and encourages visiting clinic for imaging if pain continues to worsen or become intolerable. Discusses adding Tylenol up to 3 g daily for pain. Encourages topical interventions, such aslidocaine patch, topical pain cream, heat, ice etc. patient understands and acknowledges plan. Red flags discussed. Patient left in care of self with present in no acute distress with no additional concerns or unanswered questions. IV_(FLUIDS_AND/OR_MEDICATION), MEDICATION_IM, ORAL_MEDICATION, EKG, GLUCOSE, ORTHOSTATIC_VITAL_SIGNS Written by Nakul Miranda on 2024-10-11
--- OUTSIDE RECORDS SUMMARY | 2025-02-22 10:04 | XMS_ITS | Clinical Summary ---
Author Organization [facility] Address [address] [place] [address] Phone Care Team Providers Care Crts Name Role Phone Garth Rosario MANAGER RECRUITING Primary Care Provider [phone] Allergies Active Allergy Reactions Criticality Noted Date Comments Amitriptyline Other (see comments) 01/23/2016 Blurry vision and dizziness Carbamazepine Diarrhea,Nausea And Vomiting,Rash,Other (see comments) Low 11/28/2014 Chicken Allergy Other (see comments) 11/14/2015 GI upset Capulin Hives,Other (see comments) 12/16/2014 Codeine Rash,Other (see comments) Low 11/28/2014 Egg Protein (Egg White) Diarrhea,Other ( see comments) 12/16/2014 Says had [...] omeprazole, Refer to pcp and neurologist to [facility] medications Med list in 2013: Tylenol,gaviscon,alprazolam,benztropine,vit b 12,keppra 500 bid, prilosec 20,metamucil,biotene mouth wash,zoloft 100 daily,simvastatin 20mg daily,trazodone 150mg hs Jan 2022: Heme at [facility] also says no need for further workup, 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 Nicole Thompson IN Office Location & Contact [address] [place] [address] [place] [address] H/O: respiratory disease 01/24/2015 Overview (10/25/2022): Had neg sleep study done 09/2010went to [facility] November 2020: Not using CPAP Sleep study 12/03/16 at [facility] ordered via Dr. Marta Woods = STEFANO, Mild-mod and referred for BiPAP titration Pituitary microadenoma 12/20/2014 Overview (10/25/2022): Mri of the brain done 12/11/14 at [facility]. For ? Optic neuritis left optic nerve lesion, spells.[facility] does not have report form her [...] Mri of the brain done 12/11/14 at [facility]. For ? Optic neuritis left optic nerve lesion, spells.[facility] does not have report form her [...] 07/23/15 rec approval for tens unit from [facility] 07/16/15: PVSS. Saw Sukhjinder Arce [...] unit given. Lyrica minimally helpful 06/05/15;Tel call [phone] Kalin: ALONZO saw 05/12/15: saw Dr. Ja Piña [phone] had EMG RLE-Normal,s/s worse with weight bearing activities; has wheel chair/walker, and cane per note. Assessment: radicuplothy, lumbar region MRI of the spine, no sig right sided nerve impingment, EMG of the right normal, PT minimally helpful, lyrica with mild improvement, possible SI joint mediated pain, plan injection of SI joint Marisela done 04/22/15 =6 ( normal) 02/13/[address] Hale at [facility] : plan cauda equina steroid injection Began [address] Avis Prajapati Saw ENT for dizziness 07/07/12: no vestibular dysfunction, normal hearing Thrush in 03/31/12, saw same ENT, Gerardo Bravo, at #[phone] amb with mild ataxia Dec 2010; Used cane with limp with ambulating in Apr 2011 MRI lumbar Spine 05/15/13: Subtle convex right lumbar scoliosis. Subtle disc bulge at L5-S1. Overall canal and foramen dimensions are acceptable the distal thoracic cord. Lumbar roots appear normal Began lyrica approx Fall [address] Galvan appt 01/07/15: saw Geoffrey at [facility]. Dx with MILD DDD confirmed by MRI, no surg required. Can try steroid injection May 2014, appt with Dr. Brent Boyd, At [facility] #[id number]; dx was 1.spells,2.depresion,3.chronic daily headache,4.lumbar radiculopathy,5.Fibromyalgia, Tx was Lyrica 150mg po bid, start Chlodiazepoxide-Amitriptyline 10-25mg po qd, follow up in [facility] July 2014 24 hr ambulatory EEG Normal; dx was same as above, increase lyrica to 200po bid follow up in 6 mon returned in Nov 2014. No seiz, + fullness of head , + aches/pains, + panic dx was same as above in addition #6, optic neuritis, HABEMATOLEL normal MRI disc bulge L5-S1, Saw Dr. Diaz who sent her to psych, Saw Dr. Thomas, who said no surg. , plan : image MRI of orbits/face/neck, begin Amitripyline 100po qhs, stop trazadone 150 [facility] Ricardo Hutchins is rx'er at [facility] for the pt Lyrica/Lexapro/Klonopin RICARDO GONZALEZ, PMHNP-BC [address] [place] [address] ?[phone] ? 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 - No Is patient ? No Calculus of gallbladder [...] 10/13/2020 Overview (10/13/2020): Sleep study 12/03/16 at [facility] ordered via Dr. Marta Woods = STEFANO, Mild-mod and referred for BiPAP titration Gastroesophageal reflux disease 08/31/2016 10/13/2020 Insomnia due to anxiety and fear 07/19/2016 10/13/2020 Overview (10/13/2020): PSYCH F/U [facility] Mixed anxiety and depressive disorder 07/19/2016 10/13/2020 Overview (10/13/2020): Psych f/u at [facility] on [address] Obese class I 07/19/2016 10/13/2020 Neck pain 12/04/2015 10/13/2020 Overview (10/13/2020): Pt reported a painful cyst to left neck- req u/s done 11/28/15- it is normal. 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 NEED RELEASE FOR PSYCH coordination ofcare Chondromalacia of bilateral patellas 01/24/2015 10/13/2020 Overview (10/13/2020): 05/24/16Saw Brain IRVIN Palomo- - bilat- pt will do PT- will r/t 6-8 weeks Saw Wenceslao Palomo PA-C September 2014 [facility] Abnormality right knee film 11/10/11 bilat knee pain normal exam Right ankle film normal 11/10/11 Normal left ankle film 11/10/11 BMD 04/02/11 normal bone density [facility] 01/03/04 normall elft foot film; normal left ankle bilat knee 03/04/05 norml Hyperlipidemia 11/28/2014 10/13/2020 Irritable bowel syndrome with constipation 11/28/2014 10/13/2020 Overview (10/13/2020): Saw GI 01/22/16- Dr. Sonia Khoury MD- [phone]- increaased PPI to bid- added carafate for a ew week- req that she Move and lose weight! abd U/s 05/03/12 Lanette Mild Hepatic fatty infiltrate Immunizations Immunization Administration Dates Next Due Influenza, Recombinant, PF [...] Comments Breast Cancer Screening 1965 Pneumococcal Vaccine: 50+ Years (1 of 2 - PCV) 1982 Colorectal Cancer Screening: Annual FOBT 2012 Colorectal Cancer Screening: Colonoscopy 2012 Colorectal Cancer Screening: Sigmoidoscopy 2012 Influenza Vaccine (#1) 2024 , 02/05/2020, 01/31/2019, Additional history exists Hepatitis B Vaccine Aged Out No longe r eligible based on patient's age to complete this topic [id number] [place] [phone] Care Teams Crts Relationship Specialty Start Date End Date Garth Rosario FNP [address] [place] [address] PCP - General Nurse Practitioner 10/13/20
--- OUTSIDE RECORDS SUMMARY | 2025-02-22 10:05 | XMS_ITS | Clinical Summary ---
Author Organization [facility] Address [address] [place] [address] Care Team Providers Care Talent Scout Name Role Phone Garth Rosario Primary Care Provider [phone] Source Comments PLEASE NOTE, if this patient [...] and Vomiting 11/28/2014 Chicken 11/14/2015 GI upset [place] Hives 12/16/2014 Codeine Rash 11/28/2014 Eggs Diarrhea 12/16/2014 Says had allergy test which was pos for allergy eggs Ibuprofen Nausea and Vomiting 11/28/2014 Lactose Diarrhea 12/16/2014 Peanuts 11/14/2015 Itching Penicillins Diarrhea,Nausea and Vomiting 11/28/2014 Pineapple Hives 12/16/2014 Pork 11/14/2015 GI upset [place] 11/14/2015 GI upset Medications Miscellaneous Medical Supply miscIndications:P ituitary microadenoma,Fibr omyalgia by miscellaneous route once daily. rollator Lifetime need Disp 1 D35.2 M79.7 1 Each 0 016 Active pantoprazole (PROTONIX) 40 mg EC tablet Take 40 mg by mouth 2 (two) times daily 11 018 Active diclofenac sodium (VOLTAREN) 1 % gelIndications:Hi p pain, right Apply topically 2 (two) times daily 100 g 2 021 Active loratadine (CLARITIN) 10 mg tabletIndications :Seasonal allergies TAKE 1 TABLET BY MOUTH ONCE DAILY NEEDED FOR ALLERGIES 90 Tablet 1 021 Active miscellaneous medical supply miscIndications:D ifficulty walking by miscellaneous route once daily Orthotic sneakers x99 years 5'3 , 137 lbs 1 Each 2 022 Active miscellaneous medical supply miscIndications:D ifficulty walking by miscellaneous route once daily Orthotic shoes x99 years 5'3 137 lbs 1 Each 2 022 Active lamoTRIgine (LAMICTAL) 150 mg tablet TAKE 1 TABLET BY MOUTH ONCE A DAY DIRECTED IN ADDITION TO 25MG TABLET, TOTAL DAILY = 175MG 022 Active lamoTRIgine (LAMICTAL) 25 mg tablet TAKE 1 TABLET BY MOUTH ONCE A DAY DIRECTED IN ADDITION TO 150MG TABLET, TOTAL DAILY = 175MG 022 Active MISCELLANEOUS MEDICAL SUPPLY MISCIndications:L ack of appetite,Loss of weight by miscellaneous route 3 (three) times daily Lactose free Ensure nutrutional supplement to use one can TID x99 years vanilla flavor 90 Each 11 023 Active meclizine 25 mg chewable tabletIndications :Benign paroxysmal positional vertigo, unspecified laterality PLACE 1 TABLET INTO MOUTH, CHEW AND SWALLOW 3 (THREE) TIMES DAILY NEEDED FOR DIZZINESS 30 Tablet 3 023 Active traZODone (DESYREL) 100 mg tablet Take 200 mg by mouth 023 Active escitalopram (LEXAPRO) 20 mg tablet Take 1 Tablet by mouth once daily 90 Tablet 024 Active nystatin (MYCOSTATIN) 100,000 unit/gram powderIndications :Tinea corporis Apply topically 2 (two) times daily 30 g 2 024 Active methocarbamoL (ROBAXIN) 500 mg tabletIndications :Acute pain of left shoulder,Strain of neck muscle, subsequent encounter Take 1 Tablet by mouth 3 (three) times daily 30 Tablet 1 024 Active lidocaine (LIDODERM) 5 % patchIndications: Chronic left shoulder pain,Strain of neck muscle, subsequent encounter Place 1 Patch onto the skin daily. Apply 1 patch to the affected area for a maximum of 12 hours, followed by removal for 12 hours. 30 Patch 024 Active traMADoL (ULTRAM) 50 mg tabletIndications :Chronic left shoulder pain Take 0.5 Tablets by mouth 3 (three) times daily as needed for pain 20 Tablet 024 Active salicylic acid 17 % external solutionIndicatio ns:Viral wart on finger Apply topically once daily 10 mL 1 024 Active atorvastatin (LIPITOR) 10 mg tabletIndications :Mixed hyperlipidemia TAKE 1 TABLET BY MOUTH EVERY DAY 90 Tablet 1 025 Active VITAMIN B-2 100 mg tabIndications:Mi graine without status migrainosus, not intractable, unspecified migraine type TAKE 1 TABLET BY MOUTH EVERY DAY 90 Tablet 3 025 Active VITAMIN B-2 100 mg tabIndications:Mi graine without status migrainosus, not intractable, unspecified migraine type TAKE 1 TABLET BY MOUTH EVERY DAY 90 Tablet 3 024 2024 Discontinued Active Problems Problem Noted Date Diagnosed Date Anxiety 09/29/2023 Stage 3a chronic kidney disease 08/27/2022 Simple hepatic cyst 08/24/2019 Overview (08/24/2019): [...] Not using CPAP Sleep study 12/03/16 at [facility] ordered via Dr. Marta Woods = STEFANO, Mild-mod and referred for BiPAP titration GERD (gastroesophageal reflux disease) 7 Severe episode of recurrent major depressive disorder, without psychotic features 07/19/2016 Overview (03/13/2024): Psych f/u at [facility] on 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 NEED RELEASE FOR PSYCH coordination ofcare Chondromalacia of both patellae 01/24/2015 Overview (06/11/2016): 05/24/16Saw Brain IRVIN Palomo- - bilat- pt will do PT- will r/t 6-8 weeks Saw Wenceslao Palomo PA-C September 2014 11/14/12 [facility] no sig. Abnormality right knee film 11/10/11 bilat knee pain normal exam Right ankle film normal 11/10/11 Normal left ankle film 11/10/11 BMD 04/02/11 normal bone density [facility] 01/03/04 [facility] elft foot film; normal left ankle bilat knee 03/04/05 norml Lumbar radiculopathy 01/24/2015 Overview (09/29/2023): August 2023-Followed [facility]iatry at [facility]-gets injections 09/15/15 saw PVSS TENS unti 50% [...] C5-6 Pituitary microadenoma/ MRI done Nov 2014 [facility] 12/20/2014 Overview (10/23/2021): September 2021: has done imaging on head but is not sure what results were Mri of the brain done 12/11/14 at [facility]. For ? 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 Office Location & Contact [address] [place] [address] [place] [id number] Fibromyalgia Overview (02/25/2017): 11/17/15 saw Neuro- dx migraine- begin imitrex 50mg po bid- r/t 3 mon 07/31/15 saw Neuro no chg- r/t 6 month 07/23/15 rec approval for tens unit from [facility] 07/16/15: PVSS. Saw Sukhjinder Arce [...] unit given. Lyrica minimally helpful 06/05/15;Tel call [phone] Kalin: PVSS saw 05/12/15: saw Dr. Ja Piña [phone] had EMG RLE-Normal,s/s worse with weight bearing activities; has wheel chair/walker, and cane per note. Assessment: radicuplothy, lumbar region MRI of the spine, no sig right sided nerve impingment, EMG of the right normal, PT minimally helpful, lyrica with mild improvement, possible SI joint mediated pain, plan injection of SI joint Marisela done 04/22/15 =6 ( normal) 02/13/[address] Hale at [facility] : plan cauda equina steroid injection Began [address] Avis Prajapati Saw ENT for dizziness 07/07/12: no vestibular dysfunction, normal hearing Thrush in 03/31/12, saw same ENT, Gerardo Bravo, at #[phone] amb with mild ataxia Dec 2010; Used cane with limp with ambulating in Apr 2011 MRI lumbar Spine 05/15/13: Subtle convex right lumbar scoliosis. Subtle disc bulge at L5-S1. Overall canal and foramen dimensions are acceptable the distal thoracic cord. Lumbar roots appear normal Began lyrica approx Fall [address] Galvan appt 01/07/15: saw Geoffrey at [facility]. Dx with MILD DDD confirmed by MRI, no surg required. Can try steroid injection May 2014, appt with Dr. Brent Boyd, At [facility] #[phone]; dx was 1.spells,2.depresion,3.chronic daily headache,4.lumbar radiculopathy,5.Fibromyalgia, Tx [...] as above in addition #6, optic neuritis, KIVALINA normal MRI disc bulge L5-S1, Saw Dr. Diaz who sent her to psych, Saw Dr. Thomas, who said no surg. , plan : image MRI of orbits/face/neck, begin Amitripyline 100po qhs, stop trazadone [address] Ricardo Hutchins is rx'er at [facility] for the pt Lyrica/Lexapro/Klonopin RICARDO Vic LISA, HNP-[address] ?[phone] ? Resolved Problems Problem Noted Date Diagnosed [...] other immune weakening medications) Healthcare worker or intelligence research specialist? No COVID-19 Tested? - No Is patient [...] 01/24/2015 Overview (01/24/2015): Saw Dr. Rea at [facility], dx with Seborrhic derm/dermatosis papulosa/and acneform outbreak [...] sleep study done 09/2010[facility] Pap smear for cervical cance r screening/ PT has No uterus,cervix, tubes or ovaries secondary to surgery for menoraghia, no pelvic required in future 01/02/2015 01/24/2015 Overview (01/24/2015): Done by Dr. Jason Chen, [address] 03/09/11 VAGINAL NIL ( no mention of HPV or ECC) Pt without cervix, no further pap/pelvic needed, Pt no tubes or ovaries either, removed for benign cause, menorrhagia Irritable bowel syndrome with constipation 11/28/2014 10/23/2021 Overview (08/31/2016): Saw GI 01/22/16- Dr. Sonia Khoury MD- [phone] increaased PPI to bid- added carafate for [...] 02/26/2025 2:00 PM EDT Office Visit [facility] [address] [place] [address] Garth Rosario FNP [address] [place] [address] Health Maintenance Due Date Last Done Comments Anxiety Screening 1965 HPV Screening (self-collect) [address] Colonography 2008 Fecal DNA 2008 Flexible Sigmoidoscopy 2008 Imm-Pneumococcal 50+ (1 of 1 - PCV) 2013 FIT/gFOBT 04/01/2014 04/01/2013 Colonoscopy 04/17/2023 04/17/2013 Colorectal Cancer Screening 04/17/2023 Alcohol and Drug Screen 05/02/2024 09/29/19 24, 01/04/2023, 07/30/2022, Additional history exists Depression Monitoring 06/13/2024 03/13/2024 , 09/29/2023, 01/04/2023, Additional history exists [id number] ( season) 2024 01/04/2024, 01/27/2023, 01/26/2022, Additional history exists Lipid Screening 03/13/2025 03/13/2024, 11/30, 10/26/2021, Additional history exists Tobacco Screening 03/13/2025 03/13/2024 Medicare Annual Wellness Visit 06/13/2025 06/13/2024 Hypertension Screening (#1) 10/12/2025 Breast Cancer Screening (Mammogram) 01/25/2026 01/25/2025, 07/24/2024, 07/04/2024, Additional history exists Diabetes Screening 03/13/2027 03/13/2024, 1 05/13/2023, 12/17/2022, Additional history exists HIV Screening Completed 11/29/2014 Hepatitis C Screening Completed 11/29/2014 Imm-Zoster, Recombinant Completed 11/18/2018, 07/21 Imm-Influenza Discontinued 06/06/2023, 01/30, 02/16/2021, Additional history exists Cervical Ablation/Cold-Knife Conization Discontinued Cervical Cancer Screening Discontinued Cervical Cryotherapy Discontinued Colposcopy Discontinued Excision/Leep Discontinued HPV Genotyping Discontinued Imm-DTaP/Tdap/Td Discontinued Pap + HPV Discontinued Pap Smear Discontinued Vaginal Pap Discontinued Vulvoscopy Discontinued Procedures Procedure Name Priority Date/Time Associated Diagnosis Comments HISTORIC MAMMOGRAM 01/25/2025 3: 00 AM EDT ANNUAL WELLNESS VISIT [...] to Health Maintenance Results * HISTORIC MAMMOGRAM (01/25/2025 3:00 AM EDT) 01/25/2025 3:00 AM EDT Garth JORDANP IMG MAMMO Final Res ult * ANNUAL WELLNESS VISIT SCANNED DOCUMENT (06/13/2024 3:00 AM EST) 06/13/2024 3:00 AM EST us Garth HULL SCAN OTHER ORDERS Final R esult * (ABNORMAL) LIPID PANEL (03/13/2024 3:30 PM EST) CHOLESTEROL, TOTAL 201(H) <200 mg/dL [employer] [facility] HDL CHOLESTEROL 74 > OR = 50 mg/dL L3 [facility] TRIGLYCERIDES 75 <150 mg/dL L3 [facility] LDL-CHOLESTEROL 111(H) 99 mg/dL (calc) L3 [facility] Comment: Reference range: <100 Desirable range <100 mg/dL for primary prevention; <70 mg/dL for patients with CHD or diabetic patients with > or = 2 CHD risk factors. LDL-C is now calculated using the Isabell calculation, which is a validated novel method providing better accuracy than the Friedewald equation in the estimation of LDL-C. Ar ARMENDARIZ et al. VISHAL. 2013;310(19): 5339-7122 (http://education.[employer]/faq/KGP784) CHOL/HDLC RATIO 2.7 <5.0 (calc) [employer] [facility] NON-HDL CHOLESTEROL 127 <130 mg/dL (calc) [employer] [facility] Comment: For patients with diabetes plus 1 major ASCVD risk factor, treating to a non-HDL-C goal of <100 mg/dL (LDL-C of <70 mg/dL) is considered a therapeutic option. Blood Blood / Unknown 03/13/2024 3 :30 PM EST 03/13/2024 3:32 PM EST Narrative [employer] [facility] - 03/14/2024 4:40 AM EST FASTING:NO Garth Rosario [employer] [facility] - BLOOD DRAW Final Re sult [employer] [address] [address], [address] [address] * (ABNORMAL) COMPREHENSIVE METABOLIC PANEL (03/13/2024 3:30 PM EST) GLUCOSE 87 65 - 139 mg/dL L3 [facility] Comment: Non-fasting reference interval UREA NITROGEN (BUN) 17 7 - 25 mg/dL L3 [facility] CREATININE (blood) 1.30(H) 0.50 - 1.05 mg/dL L3 [facility] EGFR 47(L) > OR = 60 mL/min/1. 73m2 L3 [facility] BUN/CREATININE RATIO 13 6 - 22 (calc) L3 [facility] SODIUM 140 135 - 146 mmol/L L3 [facility] POTASSIUM 4.7 3.5 - 5.3 mmol/L L3 [facility] CHLORIDE 105 98 - 110 mmol/L L3 [facility] CARBON DIOXIDE 30 20 - 32 mmol/L L3 [facility] CALCIUM 9.2 8.6 - 10.4 mg/dL L3 [facility] PROTEIN, TOTAL 6.5 6.1 - 8.1 g/dL L3 [facility] ALBUMIN 4.2 3.6 - 5.1 g/dL L3 [facility] GLOBULIN 2.3 1.9 - 3.7 g/dL (calc) L3 [facility] ALBUMIN/GLOBULI N RATIO 1.8 1.0 - 2.5 (calc) L3 [facility] BILIRUBIN, TOTAL 0.3 0.2 - 1.2 mg/dL L3 [facility] ALKALINE PHOSPHATASE 62 37 - 153 U/L L3 [facility] AST 20 10 - 35 U/L L3 [facility] ALT 28 6 - 29 U/L L3 [facility] Blood Blood / Unknown 03/13/2024 3 :30 PM EST 03/13/2024 3:32 PM EST Narrative L[facility] - 03/14/2024 4:40 AM EST FASTING:NO Garth Rosario [facility] - BLOOD DRAW Edited R esult - Final L[address] [address], [address] [address] * HEPATITIS A,B,C PANEL (11/29/2014 10:18 AM EDT) HEPATITIS B SURFACE ANTIBODY NEGATIVE NEGATIVE [facility] HEPATITIS B SURFACE ANTIGEN NEGATIVE NEGATIVE [facility]PAT[facility] C VIRUS DIAGNOSTIC NEGATIVE NEGATIVE [facility] HEPATITIS A ANTIBODY TOTAL NEGATIVE NEGATIVE [facility] HEPATITIS B CORE ANTIBODY NEGATIVE NEGATIVE [facility] Blood specimen (specimen) Blood / Unknown 11/29/2014 10:18 AM EDT 11/29/2014 10:34 AM EDT [facility] - 11/29/2014 1:07 PM EDT [employer] [address] [place] [address] PT ID [id number] ORD# [id number] [facility] - BLOOD DRAW Edited Resul t - Final Performing Organization Address City/[facility]/ZIP Co de Phone Number [address] [address], [place] [phone] * HIV-1 & HIV-2 ANTIBODIES (11/29/2014 10:18 AM EDT) [facility] Signature HIV 1 AND 2 ANTIBODY SCREEN NEGATIVE NEGATIVE [facility] Blood specimen (specimen) Blood / Unknown 11/29/2014 10:18 AM EDT 11/29/2014 10:[address] [facility] - 11/29/2014 1:56 PM EDT [employer] [address] [place] [address] PT ID [id number] ORD# [id number] [facility] - BLOOD DRAW Final Result Performing Organization Address City/[facility]/ZIP Co de Phone Number [address] [address], [place] [phone] from Last 3 Months or Most Recently Relevant to Health Maintenance Insurance [employer] Care Teams Talent Scout Relationship Specialty Start Date End Date Garth Rosario FNP [address] [place] [address] PCP - General Internal Medicine 02/15/20
== END 2025-02-22 09:46 | disposition home or self-care (01) ==
LOC: HO.HSM 09:15
PROVIDERS: PCP Nurse Practitioner Family; Referring Provider Nurse Practitioner Family; Visit Provider Registered Nurse
DX: G43.909 Migraine, unspecified, not intractable, without status migrainosus (principal); R55 Syncope and collapse; G44.209 Tension-type headache, unspecified, not intractable; D35.2 Benign neoplasm of pituitary gland; F44.9 Dissociative and conversion disorder, unspecified
CPT/HCPCS: 99214

== ENCOUNTER → 2025-02-22 09:15 | Outpatient (BNVA) | payer OTHER, SELFPAY | PROVIDERS: PCP Nurse Practitioner Family; Referring Provider Nurse Practitioner Family; Visit Provider Registered Nurse | DX: R55 Syncope and collapse (principal); G43.909 Migraine, unspecified, not intractable, without status migrainosus; G44.209 Tension-type headache, unspecified, not intractable; D35.2 Benign neoplasm of pituitary gland; F44.9 Dissociative and conversion disorder, unspecified | CPT/HCPCS: 99212 ==

== ENCOUNTER 2025-03-07 13:49 | Outpatient (AMB) | payer OTHER, SELFPAY ==
--- OUTSIDE RECORDS SUMMARY | 2024-02-22 15:11 | XMS_ITS | Encounter Summary ---
Author Organization [facility] Address [address] [place] [address] Care Team Providers Care Suede Cleaner Name Role Phone Amna Phillip Primary Care Provider Encounter Details Date Type Department Care Team (Late st Contact Info) Description 02/22/2024 4:11 PM EDT Hospital Encounter TH HISTORIC ENCOUNTERS EASTERN CONVERSION ONLY Kristen Foster, JERMAINE [address] [place] [address] Social History Tobacco Use Types Packs/Day Years [...] AM EST Office Visit Orthopedic Surgery - [place] [address] [facility] [address] [place] [phone] Gabriella Carvalho PA [address] [facility] [address] [place] [address] documented as of this encounter Procedures Procedure Name Priority Date/Time Associated Diagnosis Comments CR SHOULDER LT MIN 2 VIEW Routine 02/22/2024 5:15 PM EDT documented in this encounter Results * CR SHOULDER LT MIN 2 VIEW (02/22/2024 5:15 PM EDT) Anatomical Region Laterality Modality Radiographic Chloé ging 02/22/2024 4:19 PM EDT Narrative 02/22/2024 5:15 PM EDT [facility] Diagnostic Imaging Department [address] [place] [address] Patient: JANICECHRISTIANE /Age/Sex: 1965 - 58 - F Unit#: [id number] Location/Status: SPDIGEN/REG CLI Mnemonic/Ordering Site: [facility] Ordering [...] Procedure Note Cyril Main MD - 02/28/2024 [facility] Diagnostic Imaging Department [address] [place] [address] Patient: CHRISTIANE KELLY Pardeep /Age/Sex: 1965 - 58 - F Unit#: [id number] Location/Status: SPDIGEN/REG CLI Mnemonic/Ordering Site: [facility] Ordering Physician: KRISTEN FOSTER CARPENTRY SUPERVISOR CR Shoulder LT Min 2 View - 02/22/24 - [id number] Report Status:Signed EXAMINATION: LEFT SHOULDER CLINICAL INFORMATION: [...] 02/22/241712 Sign date/Time: 02/22/241714 us Kristen Foster CARPENTRY SUPERVISOR IMG XR PROCEDURES Final Resul t documented in this encounter Visit Diagnoses Not on filedocumented in this encounter Care Teams Suede Cleaner Relationship Specialty Start Date End Date Amna Phillip FNP [facility] [place] [address] PCP - General 09/30/22 documented as of this encounter
--- NOTE | 2025-03-07 13:51 | A.PHYSOV_ITS ---
Vital Signs 03/07/25 13:53 Height 5 ft 4 in Weight 162 lb BMI 27.8 Intake Visit Reasons: Right hip pain Intake Note: 59 year old female seen in office today for right hip pain ,neck and bilateral shoulder Extrusion Supervisor Required: No Allergies carbamazepine Allergy (Unknown, Verified 03/07/25 13:55) Unknown lactose Allergy (Unknown, Verified 03/07/25 13:55) Unknown peanut Allergy (Unknown, Verified 03/07/25 13:55) Unknown pork derived (porcine) Allergy (Unknown, Verified 03/07/25 13:55) Unknown turkey Allergy (Unknown, Verified 03/07/25 13:55) Unknown amitriptyline Allergy (Verified 03/07/25 13:55) Unknown chocolate Allergy (Verified 03/07/25 13:55) Unknown codeine Allergy (Verified 03/07/25 13:55) Unknown egg Allergy (Verified 03/07/25 13:55) Unknown ibuprofen Allergy (Verified 03/07/25 13:55) Unknown milk Allergy (Verified 03/07/25 13:55) Unknown Penicillins Allergy (Verified 03/07/25 13:55) Unknown pineapple Allergy (Verified 03/07/25 13:55) Unknown chicken derived Adverse Reaction (Verified 03/07/25 13:55) Gastrointestinal Upset Medication List - Last Reconciled 03/07/25 by Ajay Fernandez DO atorvastatin 10 mg PO DAILY cholecalciferol (vitamin D3) 50 mcg PO DAILY escitalopram oxalate 20 mg PO DAILY lamotrigine 25 mg PO DAILY lamotrigine 150 mg PO DAILY loratadine (Allergy Relief (loratadine)) 10 mg PO DAILY meclizine 25 mg PO TID methocarbamol 500 mg PO TID pantoprazole 40 mg PO BID riboflavin (vitamin B2) (Vitamin B-2) 100 mg PO DAILY sumatriptan succinate take 1 tab at onset of headache; if no relief may repeat 1 tab after at least 2 hrs; PO 30 days trazodone 200 mg PO BEDTIME PRN HPI Comments Details: History of Present Illness The patient is a 59-year-old female presenting with lower back pain and radicular symptoms on the right side, as well as recent neck pain. Her lower back pain has persisted for several years, and she has received two right L5 tra nsforaminal epidural steroid injections, which provided great relief. An MRI of the lumbosacral spine performed on October 16, 2021, was unremarkable. She uses a walker to assist with ambulation and wheelchair due to her condition. She presents today on the wheelchair. The patient has a history of fibromyalgia, with attempts at treatment using duloxetine, pregabalin, and gabapentin, which were not effective or led to side effects. Additionally, the patient has developed new neck pain radiating to the right shoulder and down the right arm, restricting her cervical spine mobility. There is no history of neck imaging. She had x-rays of her shoulders, which were unremarkable, and underwent physical therapy with noted improvement. The patient reported prior symptoms of shoulder swelling and pain but did not specify any etiology. Her primary care notes were reviewed today. Her orthopedic notes were reviewed. She has had injections to both shoulders without much improvement. Her shoulder x-rays were reviewed independently. Left shoulder x- ray was done on 02/22/2024 and right shoulder x-ray on 02/21/2025. Patient has had physical therapy for both her shoulders and cervical spine without significant improvement in her symptomatic presentation. Results - Imaging: Lumbosacral spine MRI dated October 16, 2021, was unremarkable with mild degenerative changes. - Imaging: Right shoulder x-rays on February 21, 2025, and left shoulder x-rays on February 22, 2024; both were unremarkable. [facility] Medical History (Updated 03/07/25 @ 14:26 by Ajay Fernandez DO) Hypertension CKD (chronic kidney disease) stage 2, GFR 60-89 ml/min Hyperparathyroidism Malrotation of kidney Renal cyst Surgical History History of carpal tunnel surgery (Unknown) History of facial surgery History of hysterectomy H/O hernia repair History of surgical removal of ganglion cyst Family History Mother Diabetes Maternal Aunt Kidney disease Cancer Social History Alcohol intake: never Patient Tobacco Use Status: Never used Tobacco Review of Systems Narrative Review of Systems - Musculoskeletal: Reports restricted range of motion in the neck; denies numbness or tingling in the arms. - Neurological: Reports pain radiating from the neck to the shoulder and arm; denies any numbness or tingling. Physical Exam Exam Exam: Physical Exam - Cervical Spine- Restricted range of motion with pain at the end range in all directions. - Upper Extremities- Normal range of motion in both shoulders; positive Neer and Hernandez signs bilaterally. - Neurological Exam- Muscle strength flexor symmetric in both upper extremities; no focal motor deficits. Patient was examined while sitting in a wheelchair. Lumbar range of motion was not tested. Dural tension signs were negative. The site provocative maneuvers were negative. Tenderness to palpation over right SI sulcus and right lower lumbar paraspinal muscles. Patient demonstrated no upper motor neuron signs. Neurological examination of lower extremities was nonfocal. Procedures and Interventions - Right L5 transforaminal epidural injection on February 21, 2023, and July 18, 2023. Vital Signs: BMI result Body Mass Index 27.8 Assessment & Plan Assessment & Plan (1) Chronic lumbar radiculopathy: Code(s): M54.16 - Radiculopathy, lumbar region Category: Medical (2) Neck pain: Code(s): M54.2 - Cervicalgia Category: Medical (3) Cervical radiculitis: Code(s): M54.12 - Radiculopathy, cervical region Category: Medical (4) Shoulder pain, bilateral: Code(s): M25.511 - Pain in right shoulder; M25.512 - Pain in left shoulder Category: Medical Plan Plan Patient was informed and verbally consented to the use of an ambient scribe for clinic note documentation during this visit. 1. Lower Back Pain The patient continues to experience lower back pain with radicular symptoms on the right side. Previous interventions included right L5 transforaminal epidural injections, which provided some relief. 2. Fibromyalgia Consideration of alternative pharmacological interventions and potential collaboration with colleagues in rheumatology to address chronic pain non- responsive to former medications. 3. Lower Back Pain With Lumbar Radiculitis Continuation with epidural steroid injections has been planned, following prior positive responses. She will be scheduled for repeat right L5 transforaminal epidural injection with conscious sedation. Further diagnostic imaging will be contingent on symptom progress. 4. Cervical Radiculopathy Imaging studies consisting of cervical x-rays and MRI have been planned to evaluate structural concerns. Discussion Notes I thoroughly reviewed with the patient the potential benefits, risks, and alternates to the proposed epidural steroid injections for her lower back pain, emphasizing her previous positive responses. I addressed her new cervical pain, underscoring the rationale for diagnostic imaging to elucidate structural causes, and planned her physical therapy course to potentially ameliorate symptoms. Clear discussions about pain management objectives and the management path for her fibromyalgia were conducted, noting the possibility of alternative medications or referral for specialized care. Consent was obtained for all discussed interventions. Patient Instructions - Continue using the walker as needed for mobility. - Schedule the cervical spine x-rays and MRI at [facility]. - Follow up with their regular physiotherapy exercises for neck and shoulder. - Monitor for any increased pain, numbness, or weakness in the arms, and seek care promptly if symptoms worsen. - Continue to follow-up as previously scheduled for ongoing pain management. Orders: Orders XR cervical spine 3V Today M54.12 - Radiculopathy, cervical region, M54.2 - Cervicalgia MR cervical spine wo con Today M54.12 - Radiculopathy, cervical region, M54.2 - Cervicalgia Referrals Physiatry Procedure Notification M54.16 - Radiculopathy, lumbar region Coding Level of Care Code Est Pt Level 4 (97853) Complex EM visit Add On G2211 Diagnoses Chronic lumbar radiculopathy M54.16 Neck pain M54.2 Cervical radiculitis M54.12 Shoulder pain, bilateral M25.511; M25.512
[2025-03-07 13:53] VITALS: BMI 27.8
--- OUTSIDE RECORDS SUMMARY | 2025-03-07 16:50 | XMS_ITS | Clinical Summary ---
Author Organization [facility] Address [address] [place] [address] Phone Care Team Providers Care Mig Welder Name Role Phone Garth Rosario BRAKE ENGINEER Primary Care Provider [phone] Allergies Active Allergy Reactions Criticality Noted Date Comments Amitriptyline Other (see comments) 01/23/2016 Blurry vision and dizziness Carbamazepine Diarrhea,Nausea And Vomiting,Rash,Other (see comments) Low 11/28/2014 Chicken Allergy Other (see comments) 11/14/2015 GI upset [place] Hives,Other (see comments) 12/16/2014 Codeine Rash,Other (see [...] omeprazole, Refer to pcp and neurologist to [facility] medications Med list in 2013: Tylenol,gaviscon,alprazolam,benztropine,vit b 12,keppra 500 bid, prilosec 20,metamucil,biotene mouth wash,zoloft 100 daily,simvastatin 20mg daily,trazodone 150mg hs Jan 2022: Heme at [facility] also says no need for further workup, 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 Nicole Thompson [place] Office Location & Contact [address] [place] [address] [place] [id number] H/O: respiratory disease 01/24/2015 Overview (10/25/2022): Had neg sleep study done 09/2010went to [facility] November 2020: Not using CPAP Sleep study 12/03/16 at [facility] ordered via Dr. Marta Woods = STEFANO, Mild-mod and referred for BiPAP titration Pituitary microadenoma 12/20/2014 Overview (10/25/2022): Mri of the brain done 12/11/14 at [facility]. For ? Optic neuritis left [...] Mri of the brain done 12/11/14 at [facility]. For ? Optic neuritis left [...] rec approval for tens unit from [facility] 07/16/15: PVSS. Saw Sukhjinder Arce [...] unit given. Lyrica minimally helpful 06/05/15;Tel call [phone] Kalin: ALONZO saw 05/12/15: saw Dr. Ja Piña [phone] had EMG RLE-Normal,s/s worse with weight bearing activities; has wheel chair/walker, and cane per note. Assessment: radicuplothy, lumbar region MRI of the spine, no sig right sided nerve impingment, EMG of the right normal, PT minimally helpful, lyrica with mild improvement, possible SI joint mediated pain, plan injection of SI joint Marisela done 04/22/15 =6 ( normal) 02/13/[address] Hale at [facility] : plan cauda equina steroid injection Began [address] Avis Prajapati Saw ENT for dizziness 07/07/12: no vestibular dysfunction, normal hearing Thrush in 03/31/12, saw same ENT, Gerardo Bravo, at #[phone] amb with mild ataxia Dec 2010; Used cane with limp with ambulating in Apr 2011 MRI lumbar Spine 05/15/13: Subtle convex right lumbar scoliosis. Subtle disc bulge at L5-S1. Overall canal and foramen dimensions are acceptable the distal thoracic cord. Lumbar roots appear normal Began lyrica approx Fall [address] Galvan appt 01/07/15: saw Geoffrey at [facility]. Dx with MILD DDD confirmed by MRI, no surg required. Can try steroid injection May 2014, appt with Dr. Brent Boyd, At [facility] #[phone]; dx was 1.spells,2.depresion,3.chronic daily headache,4.lumbar radiculopathy,5.Fibromyalgia, Tx [...] as above in addition #6, optic neuritis, [place] normal MRI disc bulge L5-S1, Saw Dr. Diaz who sent her to psych, Saw Dr. Thomas, who said no surg. , plan : image MRI of orbits/face/neck, begin Amitripyline 100po qhs, stop trazadone 150 [facility] Ricardo Hutchins is rx'er at [facility] for the pt Lyrica/Lexapro/Klonopin RICARDO GONZALEZ, PMHNP-BC [address] [place] [address] ?[phone] ? 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 - No Is patient [...] 10/13/2020 Overview (10/13/2020): Sleep study 12/03/16 at [facility] ordered via Dr. Marta Woods = STEFANO, Mild-mod and referred for BiPAP titration Gastroesophageal reflux disease 08/31/2016 10/13/2020 Insomnia due to anxiety and fear 07/19/2016 10/13/2020 Overview (10/13/2020): PSYCH F/U [facility] Mixed anxiety and depressive disorder 07/19/2016 10/13/2020 Overview (10/13/2020): Psych f/u at [facility] on [address] Obese class I 07/19/2016 10/13/2020 Neck pain 12/04/2015 10/13/2020 Overview (10/13/2020): Pt reported a painful cyst to left neck- req u/s done 11/28/15- it is normal. 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 NEED RELEASE FOR PSYCH coordination ofcare Chondromalacia of bilateral patellas 01/24/2015 10/13/2020 Overview (10/13/2020): 05/24/16Saw Brain IRVIN Palomo- - bilat- pt will do PT- will r/t 6-8 weeks Saw Wenceslao Palomo PA-C September 2014 11/14/12 [facility] no sig. Abnormality right knee film 11/10/11 bilat knee pain normal exam Right ankle film normal 11/10/11 Normal left ankle film 11/10/11 BMD 04/02/11 normal bone density [facility] 01/03/04 normall elft foot film; normal left ankle bilat knee 03/04/05 norml Hyperlipidemia 11/28/2014 10/13/2020 Irritable bowel syndrome with constipation 11/28/2014 10/13/2020 Overview (10/13/2020): Saw GI 01/22/16- Dr. Sonia Khoury MD- [phone]- [phone] PPI to bid- added carafate for [...] patient's age to complete this topic Insurance [facility] ([id number]) [facility] ([id number]) [place] [phone] Care Teams Mig Welder Relationship Specialty Start Date End Date Garth Rosario FNP [address] [place] [address] PCP - General Nurse Practitioner 10/13/20
--- OUTSIDE RECORDS SUMMARY | 2025-03-07 16:50 | XMS_ITS | Data Portability ---
Author Organization [facility] Address [address] [place] [phone] Care Team Providers Care Naphthalene Operator Helper Name Role Phone HIM CCA OTHER Assessment Encounter Date Assessment Date Assessment LastModified by Organization Details LastModified Time 10/11/2024 10/11/2024 Evaluation in the field was performed by my information services consultant colleague, as noted above, I provided real-time direction and supervision for this visit. This is a 59yo F requesting evaluation after a fall. She fell 6 days ago backward into her door and struck it mainly with her lower back. Says an ironing board fell into her head at that time but no LOC. She has been complaining of lower back and tailbone pain since then. Denies difficulty urinating or moving bowels, fevers, or leg weakness. Takes meloxicam without relief. Also sometimes takes methocarbamol but hasn't taken it this time. Has a history of sciatica for which she sees pain management for injections, but she says this feels different. PE: General: Awake & alert, NAD Respiratory: Chest rise equal bilat, no increased wob CV: Regular rate, normal peripheral perfusion MSK: There is tenderness across the lower back on both sides in the lumbar region as well as over the mid sacrum/coccyx. Impression: Lower back pain Sacral contusion Plan: -VSS, appears well. Is ambulating without difficulty. -No focal deficits on exam such as extremity weakness. Low suspicion for acute cord injury. -May simply have back contusion but could also have aggravated a disc in the incident. Mechanism of fall is less suspicious for fracture, but I cannot confirm without imaging. -Pt advised to add Tylenol not more than 1,000mg TID and topicals such as heat, lidocaine, biofreeze. -If pain worsens, will need imaging and may need ED. At this time she will stay at home and f/u with PCP. Disposition: Remain at home We discussed the diagnostic uncertainty of home visits and the risk associated with this. In this case, the patient and I felt this to be an acceptable and reasonable amount of risk given the benefit of avoiding an ED visit. We discussed the need to seek care urgently/emerg ently in the setting of any new or worsening serious symptoms. [email or web address] Not available 10/11/2024 13:32:33 Plan of Treatment Reminders Order Date Submit Date Provider Last Modified By Organization Details Last Modified Time Details Appointments None record ed. Lab None record ed. Referral None record ed. Procedures None record ed. Surgeries None record ed. Imaging None record ed. Medication Orders None record ed. Patient TargetsNo targets recorded. Patient InstructionsNo instructions recorded. Reason for Referral None Reported. Medical Equipment None Reported. Allergies Allergen ID Allergen Name Allergen Category Reaction Reaction Severity Criticality Documentation Date Start Date Code Code System Note Provider Name and Address Organization Details Recorded Time 04021 codeine medicatio n Not available Not available Not available 10/11/2024 2670 RxNorm Not Available [facility] - production 10:50:27 Medications Name Sig Start Date Stop Date Status Note LastModified by Organization Details LastModified Time methocarbamol 500 mg tablet TAKE 1 TABLET BY MOUTH THREE TIMES A DAY active Not Available Not Available No t Available lamotrigine 150 mg tablet TAKE 1 TABLET BY MOUTH EVERY DAY DIRECTED WITH 25 MG active Not Available Not Available No t Available Vitamin B-2 100 mg tablet TAKE 1 TABLET BY MOUTH EVERY DAY active Not Available Not Available No t Available atorvastatin 10 mg tablet TAKE 1 TABLET BY MOUTH EVERY DAY active Not Available Not Available No t Available Wart Remover 17 % topical liquid APPLY TO AFFECTED AREA EVERY DAY active Not Available Not Available No t Available tramadol 50 mg tablet TAKE 1/2 TABLET BY MOUTH 3 TIMES A DAY NEEDED FOR PAIN *INSURANC E 7 DAY LIMIT* active Not Available Not Available No t Available lamotrigine 25 mg tablet TAKE 1 TABLET BY MOUTH EVERY DAY DIRECTED IN ADDITION TO 150 MG active Not Available Not Available No t Available ketorolac 0.5 % eye drops INSTILL 1 DROP INTO RIGHT EYE TWICE A DAY active Not Available Not Available No t Available meloxicam 7.5 mg tablet TAKE 1 TABLET BY MOUTH 1 TIME EACH DAY. active Not Available Not Available No t Available trazodone 100 mg tablet TAKE 1 AND 1/2 TO 2 TABLET BY MOUTH AT BEDTIME active Not Available Not Available No t Available pantoprazole 40 mg tablet,delayed release TAKE 1 TABLET BY MOUTH TWICE A DAY active Not Available Not Available No t Available escitalopram 20 mg tablet TAKE 1 TABLET BY MOUTH EVERY DAY IN THE MORNING active Not Available Not Available No t Available cholecalcifero l (vitamin D3) 50 mcg (2,000 unit) capsule TAKE 1 CAPSULE BY MOUTH EVERY DAY active Not Available Not Available No t Available Vitals Date Recorded Respiratory rate Body temperature Oxygen saturation Oxygen saturation in Arterial blood by Pulse oximetry Heart rate Systolic And Diastolic Provider Name and Address Organization Details Last Updated DateTime 5 16 /min 98.9 [degF] 96 % 96 % 90 /min 152/90 mm[Hg] Not Available [facility] production 5 13:08:34 Social History None recorded. Functional Status None recorded. Mental Status None recorded. Family History Nothing Reported. Medical History No medical history recorded. Gynecological HistoryNo gynecological history recorded. Obstetrics History GPAL:G 0 P 0 0 0 0 Past Encounters Encounter ID Performer Location Encounter Start Date Encounter Closed Date Diagnosis/Indication Diagnosis SNOMED-CT Code Diagnosis ICD10 Code Diagnosis IMO Codes Diagnosis Note [id number] Barbara Nguyen MD [facility] [address] [phone] 10/11/2024 13:08:22 10/11/2024 19:59:32 Low back pain 315041924 M54.50 [id number] Contusion of sacral region 026711097 S30.0XXA [id number] Health Concerns Section Related Observation LastModified by Organization Detai ls LastModified Time None Recorded Concern Status LastModified by Organization Details LastModified Time None Recorded Advance Directives Directive None Recorded Payers Insurance Date Sequence Insurance Name Policy Number Policy Clark Covered Member ID Clark Member ID Guarantor Name 10/11/2024 1 [facility] DOS ON OR AFTER 2022 - DUAL ELIGIBLE - HALFWAY OPTIONS AND ONE CARE (MEDICARE REPLACEMENT/ADV ANTAGE - HMO) John Kelly [id number] John Kelly Notes Date Note Type Note Provider Name and Address Organization Details Recorded Time 10/11/2024 text/html ROS as noted in the HPI CRC Nurse Triage Notes (Kylah Cooper): Reason For Request: Patient feels sore from a fall a few days ago, fell on her back. Pain is in her butt, and spine area. Denies: Falls with head strike and LOC Falls from a standing position, no LOC, patient is amnestic to the event Falls with isolated injury and deformity noted to limb Falls with inability to move post fall Cool extremities after fall or injury Chief Complaints: Back Pain, Falls PMH: Osteoarthritis, Fibromyalgia, Hysterectomy PMH Reviewed at 10/11/2024 Allergies Reviewed at 10/11/2024:50 Comments: 59 y.o female complains of Back Pain, Falls Additional PMH- lesion to kidney, has 2 ureters and has had hernia surgery Patient has more allergies, but unsure, has a list in the home. Patient reports losing her balance Benson night, and having a fall. She denies head strike, no LOC and does not take a blood thinner. She fell primarily on her shoulder, back and coccyx. She is able to move all extremities, no deformities. Her thinks there may be some bruising to her back, no swelling. She endorses severe pain to her back and spine, having difficulty sitting, leaning back and bending forward. She denies any headaches or dizziness. She is aware we do not do any imaging. I provided information on the mobile health provider response time and advised the patient and/or caregiver to monitor reported signs and symptoms. I discussed the warning signs of when to seek emergency care. SEGMD: I did not participate in the care of this patient. [place] [facility] [place] before the medic summary crossed over so I am entering it here: [id number] yof found sitting up on couch, awake and mentating appropriately in no obvious distress. Pt presents with acute on chronic pain related to a fall last October 05. She uses assistive devices, including [...] report sciatica and osteoarthritic shoulder pain also pre-existing. Denies any new or worsening issues ambulating. Pain from recent fall is described as persistent to the coccyx area [...] tried a dose of Tylenol yesterday with little effect. Denies weakness, dizziness, confusion. Denies any other symptoms, including chest pain, shortness of breath, headache. Dr Nguyen consulted, discusses the benefit of imaging which we cannot do in the home and encourages visiting clinic for imaging if pain continues to worsen or become intolerable. Discusses adding Tylenol up to 3 g daily for pain. Encourages topical interventions, such as lidocaine patch, topical pain cream, heat, ice etc. patient understands and acknowledges plan. Red flags discussed. Patient left in care of self with present in no acute distress with no additional concerns or unanswered questions.Services ProvidedPatient EducationReferring Provider Labs---[facility] [place] Orders[place] Medication Orders---DispositionFul filledWas patient sent to ED?[facility] consulted on the case?Yes- Barbara Nguyen MD [address] [facility],[address], [place], [phone], [place] - [employer] 10/26/2024 15:02:50 OBGyn Episode No OBEpisode recorded.
--- OUTSIDE RECORDS SUMMARY | 2025-03-07 16:50 | XMS_ITS | Clinical Summary ---
Author Organization [facility] Address [address] [place] [address] Care Team Providers Care Statistical Methods Professor Name Role Phone Garth Rosario Primary Care Provider [phone] Source Comments PLEASE NOTE, if this patient [...] Comments) 01/23/2016 Blurry vision and dizziness Carbamazepine Diarrhea,Rash,Nause a and Vomiting 11/28/2014 Chicken 11/14/2015 GI upset [place] Hives 12/16/2014 Codeine Rash 11/28/2014 Eggs Diarrhea 12/16/2014 Says had allergy test which was pos for allergy eggs Ibuprofen Nausea and Vomiting 11/28/2014 Lactose Diarrhea 12/16/2014 Peanuts 11/14/2015 Itching Penicillins Diarrhea,Nausea and Vomiting 11/28/2014 Pineapple Hives 12/16/2014 Pork 11/14/2015 GI upset Streptococcus Pneumoniae 02/26/2025 [place] 11/14/2015 GI upset Medications Miscellaneous Medical Supply miscIndications:Pi tuitary microadenoma,Fibro myalgia by miscellaneous route once daily. rollator Lifetime [...] daily 30 g 2 09/29/19 24 Active methocarbamoL (ROBAXIN) 500 mg tabletIndications: [...] DAY 90 Tablet 1 12/19/19 25 Active VITAMIN B-2 100 mg tabIndications:Neftali marlee without status migrainosus, not intractable, unspecified migraine type TAKE 1 TABLET BY MOUTH EVERY DAY 90 Tablet 3 02/03/20 25 Active SUMAtriptan succinate (IMITREX) 50 mg tablet 02/23/20 25 Active Active Problems Problem Noted Date [...] 2020: Simple cysts of malrotated kidney at [facility] CT abdomen-06/2019-11 mm lesion in the upper pole of the left kidney, recommendation for US. Wheelchair dependence 01/29/2019 H/O: hysterectomy 07/24/2018 Seasonal allergic rhinitis 12/07/2017 History of sleep apnea 12/27/2016 Overview (12/25/2020): November 2020: Not using CPAP Sleep study 12/03/16 at [facility] ordered via Dr. Marta Woods = STEFANO, Mild-mod and referred for BiPAP titration GERD (gastroesophageal reflux disease) 7 Severe episode of recurrent major depressive disorder, without psychotic features 07/19/2016 Overview (03/13/2024): Psych f/u at [facility] on [facility] (Osiris Malone) Insomnia due to anxiety and fear 07/19/2016 Overview (03/13/2024): PSYCH F/U [facility] ((Osiris Malone)) Patient has healthcare [...] for home health care 06/26/2015 Overview (07/19/2016): retort cooler signed for 5.5 hour per week no night hours Pt notes rec 06/04/15-07/06/15 Signed for 05/29/15-07/27/15 [facility]; tub shower bench/wheel chair/grab bars/and walker home equiptment Suicidal ideation/sect 12 04/02/15 [facility] 04/23/20 Overview (05/26/2015): 04/02/15 + Suicidal ideation, sect 12 to ER; held inpatient + plan + SI N pt N Ricardo Hutchins is rx'er at [facility] for the pt Lyrica/Lexapro/Klonopin RICARDO A LISA, PMHNP-[address], [place] ?[address] ? NEED RELEASE FOR PSYCH coordination ofcare Chondromalacia of both patellae 01/24/2015 Overview (06/11/2016): 05/24/16Saw Brain IRVIN Palomo- - bilat- pt will do PT- will r/t 6-8 weeks Saw Wenceslao Palomo PA-C September 2014 11/14/12 [facility] no sig. Abnormality right knee film 11/10/11 bilat knee pain normal exam Right ankle film normal 11/10/11 Normal left ankle film 11/10/11 BMD 04/02/11 normal bone density [facility] 01/03/04 normall elft foot film; normal left ankle bilat knee 03/04/05 norml Lumbar radiculopathy 01/24/2015 Overview (09/29/2023): August 2023-Followed by physiatry at [address] , [facility]-gets injections 09/15/15 saw PVSS TENS unti 50% [...] C5-6 Pituitary microadenoma/ MRI done Nov 2014 [facility] 12/20/2014 Overview (10/23/2021): September 2021: has done imaging on head but is not sure what results were Mri of the brain done 12/11/14 at [facility]. For ? Optic neuritis left optic nerve lesion, spells.[facility] does not have report form [...] Leukocytopenia Overview (02/24/2022): Jan 2022: Heme at [facility] also says no need for further workup, 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, Refer to pcp and neurologist to [facility] medications Med list in 2012: Tylenol,gaviscon,alprazolam,benztropine,vit [...] negin Thompson [place] Office Location & Contact [address] [place] [address] Dr Agarwal Jose JORDAN [place] [address] Migraine without status migrainosus, not intract able Overview (02/26/2025): January 2025- Follows with neuro at [place] (Sayra Fernandez) Fibromyalgia Overview (02/25/2017): 11/17/15 saw Neuro- dx migraine- begin imitrex 50mg po bid- r/t 3 mon 07/31/15 saw Neuro no chg- r/t 6 month 07/23/15 rec approval for tens unit from [facility] 07/16/15: PVSS. Saw Sukhjinder Arce MD [...] unit given. Lyrica minimally helpful 06/05/15;Tel call [phone] Kalin: PVSS saw 1/11/16: saw Dr. Ja Piña [phone] had EMG RLE-Normal,s/s worse with weight bearing activities; has wheel chair/walker, and cane per note. Assessment: radicuplothy, lumbar region MRI of the spine, no sig right sided nerve impingment, EMG of the right normal, PT minimally helpful, lyrica with mild improvement, possible SI joint mediated pain, plan injection of SI joint Marisela done 04/22/15 =6 ( normal) 02/13/[address] Hale at [facility] : plan cauda equina steroid injection Began [address] Avis Prajapati Saw ENT for dizziness 07/07/12: no vestibular dysfunction, normal hearing Thrush in 03/31/12, saw same ENT, Gerardo Bravo, at #[phone] amb with mild ataxia Dec 2010; Used cane with limp with ambulating in Apr 2011 MRI lumbar Spine 05/15/13: Subtle convex right lumbar scoliosis. Subtle disc bulge at L5-S1. Overall canal and foramen dimensions are acceptable the distal thoracic cord. Lumbar roots appear normal Began lyrica approx Fall [address] Galvan appt 01/07/15: saw Geoffrey at [facility]. Dx with MILD DDD confirmed by MRI, no surg required. Can try steroid injection May 2014, appt with Dr. Brent Boyd, At [facility] #[phone]; dx was 1.spells,2.depresion,3.chronic daily headache,4.lumbar radiculopathy,5.Fibromyalgia, Tx [...] as above in addition #6, optic neuritis, [place] normal MRI disc bulge L5-S1, Saw Dr. Diaz who sent her to psych, Saw Dr. Thomas, who said no surg. , plan : image MRI of orbits/face/neck, begin Amitripyline 100po qhs, stop trazadone [address] Ricardobrandy Hutchins is rx'er at [facility] for the pt Lyrica/Lexapro/Klonopin RICARDO Ho THOMPSONNICOLE, PMHNP-[address] ?[address] ? 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 No COVID-19 Tested? - No Is patient [...] 01/24/2015 Overview (01/24/2015): Saw [facility]. Rea [facility], dx with Seborrhic derm/dermatosis papulosa/and acneform outbreak [...] done 09/2010[facility] Pap smear for cervical cance r screening/ PT has No uterus,cervix, tubes or ovaries secondary to surgery for menoraghia, no pelvic required in future 01/02/2015 01/24/2015 Overview (01/24/2015): Done by Dr. Jason Chen, [facility] 03/09/11 VAGINAL NIL ( no mention of HPV or ECC) Pt without cervix, no further pap/pelvic needed, Pt no tubes or ovaries either, removed for benign cause, menorrhagia Irritable bowel syndrome with constipation 11/28/2014 10/23/2021 Overview (08/31/2016): Saw GI 01/22/16- Dr. Sonia Khoury MD- [phone] increaased PPI to bid- added carafate for a ew week- req that she Move and lose weight! abd U/s 05/03/12 [facility] Mild Hepatic fatty infiltrate Encounters Date Type Department Care Team Description 02/26/2025 2:00 PM EDT Office Visit [address] [phone] Garth Rosario FNP from Last 3 Months Immunizations Immunization Administration Dates Next Due Flu, Recombinant, 18y+, Flublok 02/05/2020,01/31 INFLUENZA, SEASONAL, INJECTABLE 02/16/2021 Influenza (FLUBLOK),recombinant,injectable,preservative Free 05/26/2015 MODERNA COVID-19 VACCINE BIVALENT, BLUE CAP, 6M+ 01/26/2022 Moderna COVID-19 (Spikevax), Mrna, Lnp-s, Pf, 50 Mcg/0.5 Ml, 12yr+ 02/26/2025 Moderna COVID-19 Vaccine, re d cap blue [...] Sign Reading Time Taken Comments Blood Pressure 120/70 02/26/2025 2:06 PM EDT Pulse 88 02/26/2025 2:06 PM EDT Temperature 37.2 C (98.9 F) 10/12/2024 4:52 PM EDT Respiratory Rate 20 02/26/2025 2:06 PM EDT Oxygen Saturation 96% 02/26/2025 2:06 PM EDT Inhaled Oxygen Concentration - - Weight 73.5 kg (162 lb) 02/26/2025 2:06 PM EDT Height 162.6 cm (5' 4 ) 03/20/2024 10:44 AM EST Body Mass Index 27.81 03/20/2024 10:44 AM EST Plan of Treatment [...] 03/13/2025 03/13/2024, 11/30, 10/26/2021, Additional history exists Medicare Annual Wellness Visit 06/13/2025 06/13/2024 Breast Cancer Screening (Mammogram) 01/25/2026 01/25/2025, 07/24/2024, 07/04/2024, Additional history exists Hypertension Screening (#1) 02/26/2026 Tobacco Screening 02/26/2026 02/26/2025 Diabetes Screening 03/13/2027 03/13/2024, 1 05/13/2023, 12/17/2022, Additional history exists HIV Screening Completed 11/29/2014 Hepatitis C Screening Completed 11/29/2014 Imm-Zoster, Recombinant Completed 11/18/2018, 07/21 Imm-Influenza Discontinued 06/06/2023, 01/30, 02/16/2021, Additional history exists [id number] Completed 02/26/2025, 090 08/2023, 01/27/2023, Additional history exists Cervical Ablation/Cold-Knife Conization Discontinued Cervical Cancer Screening Discontinued Cervical Cryotherapy Discontinued Colposcopy Discontinued Excision/Leep Discontinued HPV Genotyping Discontinued Imm-DTaP/Tdap/Td Discontinued Imm-Pneumococcal 50+ Discontinued Pap + HPV Discontinued Pap Smear [...] PM EST) CHOLESTEROL, TOTAL 201(H) <200 mg/dL [facility] HDL CHOLESTEROL 74 > OR = 50 mg/dL [facility] TRIGLYCERIDES 75 <150 mg/dL [facility] LDL-CHOLESTEROL 111(H) 99 mg/dL (calc) [facility] Comment: Reference range: <100 Desirable range <100 mg/dL for primary prevention; <70 mg/dL for patients with CHD or diabetic patients with > or = 2 CHD risk factors. LDL-C is now calculated using the Isabell calculation, which is a validated novel method providing better accuracy than the Friedewald equation in the estimation of LDL-C. Ar ARMENDARIZ et al. VISHAL. 2013;310(19): 8735-7931 (http://education.Zipments/faq/DJT353) CHOL/HDLC RATIO 2.7 <5.0 (calc) [facility] NON-HDL CHOLESTEROL 127 <130 mg/dL (calc) [facility] Comment: For patients with diabetes plus 1 major ASCVD risk factor, treating to a non-HDL-C goal of <100 mg/dL (LDL-C of <70 mg/dL) is considered a therapeutic option. Blood Blood / Unknown 03/13/2024 3 :30 PM EST 03/13/2024 3:32 PM EST Narrative [facility] - 03/14/2024 4:40 AM EST FASTING:NO Garth Rosario [facility] TECHNIC[facility] - BLOOD DRAW Final Re sult [facility] [address] [address], [facility] [address] [address] * (ABNORMAL) COMPREHENSIVE METABOLIC PANEL (03/13/2024 3:30 PM EST) GLUCOSE 87 65 - 139 mg/dL [facility] Comment: Non-fasting reference interval UREA NITROGEN (BUN) 17 7 - 25 mg/dL [facility] CREATININE (blood) 1.30(H) 0.50 - 1.05 mg/dL [facility] EGFR 47(L) > OR = 60 mL/min/1. 73m2 [facility] BUN/CREATININE RATIO 13 6 - 22 (calc) [facility] SODIUM 140 135 - 146 mmol/L [facility] POTASSIUM 4.7 3.5 - 5.3 mmol/L [facility] CHLORIDE 105 98 - 110 mmol/L [facility] CARBON DIOXIDE 30 20 - 32 mmol/L [facility] CALCIUM 9.2 8.6 - 10.4 mg/dL [facility] PROTEIN, TOTAL 6.5 6.1 - 8.1 g/dL [facility] ALBUMIN 4.2 3.6 - 5.1 g/dL [facility] GLOBULIN 2.3 1.9 - 3.7 g/dL (calc) [facility] ALBUMIN/GLOBULI N RATIO 1.8 1.0 - 2.5 (calc) [facility] BILIRUBIN, TOTAL 0.3 0.2 - 1.2 mg/dL [facility] ALKALINE PHOSPHATASE 62 37 - 153 U/L [facility] AST 20 10 - 35 U/L [facility] ALT 28 6 - 29 U/L [facility] Blood Blood / Unknown 03/13/2024 3 :30 PM EST 03/13/2024 3:32 PM EST [address] [facility] - 03/14/2024 4:40 AM EST FASTING:NO Garth Rosario [facility] - BLOOD DRAW Edited R esult - Final giddy [address] [address], [place] [address] [address] * HEPATITIS A,B,C PANEL (11/29/2014 10:18 AM EDT) HEPATITIS B SURFACE ANTIBODY NEGATIVE NEGATIVE [facility] HEPATITIS B SURFACE ANTIGEN NEGATIVE NEGATIVE [facility] C VIRUS DIAGNOSTIC NEGATIVE NEGATIVE [facility] HEPATITIS A ANTIBODY TOTAL NEGATIVE NEGATIVE [facility] HEPATITIS B CORE ANTIBODY NEGATIVE NEGATIVE [facility] Blood specimen (specimen) Blood / Unknown 11/29/2014 10:18 AM EDT 11/29/2014 10:34 AM EDT [email or web address] [facility] - 11/29/2014 1:07 PM EDT [employer] [address] [place] [address] PT ID [id number] ORD# [id number] [facility] - BLOOD DRAW Edited Resul t - Final Performing Organization Address City/[facility]/ZIP Co de Phone Number [address] [address], [place] [phone] * HIV-1 & HIV-2 ANTIBODIES (11/29/2014 10:18 AM EDT) [facility] HIV 1 AND 2 ANTIBODY SCREEN NEGATIVE NEGATIVE [facility] Blood specimen (specimen) Blood / Unknown 11/29/2014 10:18 AM EDT 11/29/2014 10:34 AM EDT [facility] - 11/29/2014 1:56 PM EDT [employer]al [employer] [address] [place] [address] PT ID [id number] ORD# [id number] [facility] - BLOOD DRAW Final Result Performing Organization Address City/[facility]/ZIP Co de Phone Number [address] [address], [place] [phone] from Last 3 Months or Most Recently Relevant to Health Maintenance Insurance [employer] Care Teams Statistical Methods Professor Relationship Specialty Start Date End Date Garth Rosario FNP [address] [place] [address] PCP - General Internal Medicine 02/15/20
--- OUTSIDE RECORDS SUMMARY | 2025-03-07 16:50 | XMS_ITS | Clinical Summary ---
Author Organization [facility] Address [address] [place] [address] Phone Care Team Providers Care Jordan Man Name Role Phone Amna Phillip [facility] Primary Care Provider [phone] Allergies Active Allergy Reactions Criticality Noted Date Comments Amitriptyline Headache,Other 01/23/2016 Blurry vision and dizziness Carbamazepine Diarrhea,Nausea And Vomiting,Rash,Other Low 11/28/2014 Chicken Derived Other 11/14/2015 GI upset Chicken Meat Extract 11/14/2015 GI upset Chocolate Rash 07/25/2024 [place] Hives,Other 12/16/2014 Codeine Rash,Other Low 11/28/2014 Egg [...] 07/23/15 rec approval for tens unit from [facility] 07/16/15: PVSS. Saw Sukhjinder Arce MD [...] unit given. Lyrica minimally helpful 06/05/15;Tel call [phone] Kalin: PVSS saw 05/12/15: saw Dr. Ja Piña [phone] had EMG RLE-Normal,s/s worse with weight bearing activities; has wheel chair/walker, and cane per note. Assessment: radicuplothy, lumbar region MRI of the spine, no sig right sided nerve impingment, EMG of the right normal, PT minimally helpful, lyrica with mild improvement, possible SI joint mediated pain, plan injection of SI joint Marisela done 04/22/15 =6 ( normal) 02/13/[address] Hale at [facility] : plan cauda equina steroid injection Began [address] Avis Prajapati Saw ENT for dizziness 07/07/12: no vestibular dysfunction, normal hearing Thrush in 03/31/12, saw same ENT, Gerardo Bravo, at #[phone] amb with mild ataxia Dec 2010; Used cane with limp with ambulating in Apr 2011 MRI lumbar Spine 05/15/13: Subtle convex right lumbar scoliosis. Subtle disc bulge at L5-S1. Overall canal and foramen dimensions are acceptable the distal thoracic cord. Lumbar roots appear normal Began lyrica approx Fall [address] Galvan appt 01/07/15: saw Geoffrey at [facility]. Dx with MILD DDD confirmed by MRI, no surg required. Can try steroid injection May 2014, appt with Dr. Brent Boyd, At [facility] #[phone]; dx was 1.spells,2.depresion,3.chronic daily headache,4.lumbar radiculopathy,5.Fibromyalgia, Tx [...] as above in addition #6, optic neuritis, [place] normal MRI disc bulge L5-S1, Saw Dr. Diaz who sent her to psych, Saw Dr. Thomas, who said no surg. , plan : image MRI of orbits/face/neck, begin Amitripyline 100po qhs, stop trazadone 150 BHN Ricardo Hutchins is rx'er at [facility] for the pt Lyrica/Lexapro/Klonopin RICARDO Vic JAIMESANJANANICOLE, PMHNP-BC [address] [place] [address] ?[phone] ? Obstructive apnea 08/16/2024 Anxiety 09/29/2023 Acquired [...] omeprazole, Refer to pcp and neurologist to [facility] medications Med list in 2013: Tylenol,gaviscon,alprazolam,benztropine,vit b 12,keppra 500 bid, prilosec 20,metamucil,biotene mouth wash,zoloft 100 daily,simvastatin 20mg daily,trazodone 150mg hs Jan 2022: Heme at [facility] also says no need for further workup, 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, Refer to pcp and neurologist to [facility] medications Med list in 2013: Tylenol,gaviscon,alprazolam,benztropine,vit b 12,keppra 500 bid, prilosec 20,metamucil,biotene mouth wash,zoloft 100 daily,simvastatin 20mg daily,trazodone 150mg hs Stage 3a chronic kidney disease ([facility] V24, CM /[facility] V28) 10/13/2020 Calculus of gallbladder with out [...] and fear 07/19/2016 Overview (08/16/2024): PSYCH F/U [facility] (([facility])) Severe episode of recurrent major depressive disorder, without psychotic features ([facility] V24, [facility] V28) 07/19/2016 Overview (08/16/2024): Psych f/u at [facility] on [facility] ([facility]) Suicidal ideation 04/23/2015 Overview (08/16/2024): 04/02/15 + Suicidal ideation, sect 12 to ER; held inpatient + plan + SI BHN pt Regino Hutchins is rx'er at [facility] for the pt Lyrica/Lexapro/Klonopin RICARDO GONZALEZ, PMHNP-BC [address] [place] ?[address] ? NEED RELEASE FOR PSYCH coordination ofcare Chondromalacia of both patellae 01/24/2015 Overview (08/16/2024): 05/24/16Saw Brain IRVIN Palomo- - bilat- pt will do PT- will r/t 6-8 weeks Saw Wenceslao Palomo PA-C September 2014 11/14/12 [facility] no sig. Abnormality right knee film 11/10/11 bilat knee pain normal exam Right ankle film normal 11/10/11 Normal left ankle film 11/10/11 BMD 04/02/11 normal bone density [facility] 01/03/04 normall elft foot film; normal left ankle bilat knee 03/04/05 norml Lumbar radiculopathy 01/24/2015 Overview (08/16/2024): August 2023-Followed [facility]iatry at [facility]-gets injections 09/15/15 saw PVSS TENS unti 50% [...] Mri of the brain done 12/11/14 at [facility]. For ? Optic neuritis left optic nerve lesion, spells.[facility] does not have report form her [...] Mri of the brain done 12/11/14 at [facility]. For ? Optic neuritis left optic nerve lesion, spells.[facility] does not have report form her [...] PM EDT Office Visit Orthopedic Surgery - [place] [address] [facility] [address] [place] [phone] Gabriella Carvalho PA Rotator cuff arthropathy of right shoulder (Primary Dx); Rotator cuff arthropathy of left shoulder; Chronic pain of both shoulders; Cervicalgia 02/21/2025 12:06 PM EDT - 02/21/2025 11:59 PM EDT Hospital Encounter [facility] Xray [address] [place] [id number] Chronic right shoulder pain Discharge Disposition: Home or Self Care 02/21/2025 Telephone Orthopedic Surgery [facility] [address] [phone] Gabriella Carvalho PA from Last 3 Months [...] 8:30 AM EST Office Visit Orthopedic Surgery [facility] [address] [phone] Gabriella Carvalho PA [address] [address] Health Maintenance Due Date Last Done Comments Breast Cancer Screening 1963 DTaP,Tdap,and Td Vaccines (1 - Tdap) 1982 Cervical Cancer Screening: Pap Smear 1984 Pneumococcal Vaccine: 50+ Years (1 of 1 - PCV) 2013 Hepatitis C Screening 04/04/2022 Social Influencers of Health Screening 04/04/2022 Depression Screening 05/02/2024 COVID-19 Vaccine (8 - Moderna risk season) 2024 02/26/2025, 01/04/2024, 01/27/2023, Additional history exists Influenza Vaccine (#1) 2024 [...] Procedure Name Priority Date/Time Associated Diagnosis Comments VA ARTHROCENTESIS/ASPIR ATION/INJECTION MAJOR JOINT/BURSA W/O U/S GUIDANCE Routine 02/21/2025 2:30 PM EDT Rotator cuff arthropathy of right shoulder Chronic pain of both shoulders XR SHOULDER 2+ VIEWS RIGHT Routine 02/21/2025 12:30 PM EDT Chronic right shoulder pain COLONOSCOPY Routine 09/13/2024 1:18 PM EDT from Last 3 Months or Most Recently Relevant to Health Maintenance Results * VA ARTHROCENTESIS/ASPIRATION/INJECTION MAJOR JOINT/BURSA W/O U/S GUIDANCE (02/21/2025 [...] 02/22/2025 7:45 AM EDT Normal examination. Code 13834 -------- FINAL REPORT -------- Dictated By: Ja Azul Dictated Date: 02/22/2025 07:44 ET Assigned Physician: Ja Azul Reviewed and Electronically Signed By: Ja Azul Signed Date: 02/22/2025 07:45 ET Workstation ID: [id number] Transcribed By: Self Edit Transcribed Date: 02/22/2025 [...] tissueabnormality is seen. IMPRESSION: Normal examination. Code 41807 -------- FINAL REPORT -------- Dictated By: Ja Azul Dictated Date: 02/22/2025 07:44 ET Assigned Physician: Ja Azul Reviewed and Electronically Signed By: Ja Azul Signed Date: 02/22/2025 07:45 ET Workstation ID: [id number] Transcribed By: Self Edit Transcribed Date: 02/22/2025 07:44 ET us Gabriella ENRIQUEZ IMG XR PROCEDURES Final Resul t * COLONOSCOPY (09/13/2024 1:18 PM EDT) Anatomical Region Laterality Modality Endoscopy us Historical Provider GI~PROCEDURE ORDERABLES F inal Result from Last 3 Months or Most Recently Relevant to Health [place] [address] [facility] Member Subscriber Plan / Payer (Ef fective 2016-Present) Name:CHRISTIANE KELLY Relation to Subscriber:Self Name:Christiane Kelly Payer ID:[id number] Group ID:[id number] Type:Not on file Address: [address] [place] [address] Advance Directives Documents on File Type Date 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
== END 2025-03-07 14:13 | disposition home or self-care (01) ==
PROVIDERS: PCP Nurse Practitioner Family; Visit Provider Physical Medicine & Rehabilitation
DX: M54.16 Radiculopathy, lumbar region (principal); M54.2 Cervicalgia; M54.12 Radiculopathy, cervical region; M25.511 Pain in right shoulder; M25.512 Pain in left shoulder
CPT/HCPCS: 99213; G2211

== ENCOUNTER → 2025-03-07 13:49 | Outpatient (BNVA) | payer OTHER, SELFPAY | PROVIDERS: PCP Nurse Practitioner Family; Visit Provider Physical Medicine & Rehabilitation | DX: M25.551 Pain in right hip (principal); M25.511 Pain in right shoulder; M25.512 Pain in left shoulder; M54.2 Cervicalgia; M54.16 Radiculopathy, lumbar region; M54.12 Radiculopathy, cervical region; M79.7 Fibromyalgia; R26.2 Difficulty in walking, not elsewhere classified | CPT/HCPCS: 99212 ==

== ENCOUNTER 2025-04-01 08:47 | Outpatient (REF) | payer OTHER, SELFPAY ==
--- OUTSIDE RECORDS SUMMARY | 2024-02-22 15:11 | XMS_ITS | Encounter Summary ---
Author Organization [facility] Address [address] [place] [address] Care Team Providers Care Casing Splitter Name Role Phone Amna Phillip Primary Care Provider Encounter Details Date Type Department Care Team (Late st Contact Info) Description 02/22/2024 4:11 PM EDT Hospital Encounter TH HISTORIC ENCOUNTERS EASTERN CONVERSION ONLY Kristen Foster, JERMAINE [address] [place] [address] Social History Tobacco Use Types Packs/Day Years Used Date Smoking Tobacco: Never Smokeless Tobacco: Never Alcohol Use Standard Drinks/Week Comments Never 0 (1 standard drink = 0.6 oz pur e alcohol) Comments Unknown Sex and Gender Information Value Date Recorded Sex Assigned at Not on file Legal Sex Female 6:22 AM EST Gender Identity Not on file Sexual Orientation Not on file documented as of this encounter Plan of Treatment Upcoming Encounters Date Type Department Care Team (Late st Contact Info) Description 04/19/2025 8:30 AM EST Office Visit Orthopedic Surgery - [place] [address] [facility] [address] [place] [phone] Gabriella Carvalho PA [address] [facility] [address] [place] [address] documented as of this encounter Procedures Procedure Name Priority Date/Time Associated Diagnosis Comments CR SHOULDER LT MIN 2 VIEW Routine 02/22/2024 5:15 PM EDT documented in this encounter Results * CR SHOULDER LT MIN 2 VIEW (02/22/2024 5:15 PM EDT) Anatomical Region Laterality Modality Radiographic Chloé ging 02/22/2024 4:19 PM EDT Narrative 02/22/2024 5:[address] [facility] Diagnostic Imaging Department [address] [place] [address] Patient: JANICECHRISTIANE /Age/Sex: 1965 - 58 - F Unit#: [id number] Location/Status: SPDIGEN/REG CLI Mnemonic/Ordering Site: [facility] Ordering Physician: KRISTEN FOSTER NP CR Shoulder LT Min 2 View - 02/22/24 - 1643 Report Status:Signed EXAMINATION: LEFT SHOULDER CLINICAL INFORMATION: Decreased range of motion. Bony tenderness for 2 weeks. Acute pain COMPARISON: 01/12/2016 TECHNIQUE: 3 views of the left shoulder FINDINGS: There is no acute fracture or subluxation. No suspicious focal lesion. The previously demonstrated soft tissue calcification is no longer present. There is no significant downsloping of the acromion. No hypertrophy of the AC joint. There may be a small cyst or erosion of the greater tuberosity. No suspicious abnormality in the visualized portions of the chest IMPRESSION: No acute abnormality. No etiology for pain demonstrated Dictating Physician: Pardeep MAIN BRET MD Electronically Signed by: Pardeep MAIN BRET MD Dic Date/Time: 02/22/241712 Sign date/Time: 02/22/241714 Procedure Note Cyril Main MD - 02/28/2024 [facility] Diagnostic Imaging Department [address] [place] [address] Patient: CHRISTIANE KELLY Pardeep /Age/Sex: 1965 - 58 - F Unit#: [id number] Location/Status: SPDIGEN/REG CLI Mnemonic/Ordering Site: [facility] Ordering Physician: KRISTEN FOSTER WASHERY ENGINEER CR Shoulder LT Min 2 View - 02/22/24 - 0669 Report Status:Signed EXAMINATION: LEFT SHOULDER CLINICAL INFORMATION: Decreased range of motion. Bony tenderness for 2 weeks. Acute pain COMPARISON: 01/12/2016 TECHNIQUE: 3 views of the left shoulder FINDINGS: There is no acute fracture or subluxation. No suspicious focal lesion.The previously demonstrated soft tissue calcification is no longer present.There is no significant downsloping of the acromion. No hypertrophy of the ACjoint. There may be a small cyst or erosion of the greater tuberosity. No suspicious abnormality in the visualized portions of the chest IMPRESSION: No acute abnormality. No etiology for pain demonstrated Dictating Physician: Pardeep MAIN BRET MD Electronically Signed by: Pardeep MAIN BRET MD Dic Date/Time: 02/22/241712 Sign date/Time: 02/22/241714 us Kristen Foster WASHERY ENGINEER IMG XR PROCEDURES Final Resul t documented in this encounter Visit Diagnoses Not on filedocumented in this encounter Care Teams Casing Splitter Relationship Specialty Start Date End Date Amna Phillip FNP [facility] [place] [address] PCP - General 09/30/22 documented as of this encounter
--- NOTE | ~2025-04-01 | XR_ITS ---
EXAMINATION: XR CERVICAL SPINE CLINICAL INFORMATION: M54.2 - Cervicalgia COMPARISON: None available. TECHNIQUE: 4 views FINDINGS: Cervical spine is visualized from C1-C6 level. No prevertebral soft tissue swelling. Predens space is maintained. No acute fracture or subluxation. Vertebral body heights are maintained. Minimal C5-6 disc degeneration. Mild facet degeneration. No suspicious bony lesions. Lung apices are clear. XR/XR cervical spine 3V IMPRESSION: Mild cervical spondylosis Electronically signed by: Cristino Andrea MD 04/01/2025 12:12 PM RONNA
--- OUTSIDE RECORDS SUMMARY | 2025-04-01 09:45 | XMS_ITS | Clinical Summary ---
Author Organization [facility] Address [address] [place] [address] Phone Care Team Providers Care Manager Government Name Role Phone Amna Phillip [facility] Primary Care Provider Allergies Active Allergy Reactions Criticality Noted Date Comments Amitriptyline Headache,Other 01/23/2016 Blurry vision and dizziness Carbamazepine Diarrhea,Nausea And Vomiting,Rash,Other Low 11/28/2014 Chicken Derived Other 11/14/2015 GI upset Chicken Meat Extract 11/14/2015 GI upset Chocolate Rash 07/25/2024 [place] Hives,Other 12/16/2014 Codeine Rash,Other Low 11/28/2014 Egg [...] unit given. Lyrica minimally helpful 06/05/15;Tel call [phone] Kalin: PVSS saw 05/12/15: saw Dr. Ja Piña [phone] had EMG RLE-Normal,s/s worse with weight bearing activities; has wheel chair/walker, and cane per note. Assessment: radicuplothy, lumbar region MRI of the spine, no sig right sided nerve impingment, EMG of the right normal, PT minimally helpful, lyrica with mild improvement, possible SI joint mediated pain, plan injection of SI joint Marisela done 04/22/15 =6 ( normal) 02/13/[address] Hale at [facility] : plan cauda equina steroid injection Began [address] Avis Prajapati Saw ENT for dizziness 07/07/12: no vestibular dysfunction, normal hearing Thrush in 03/31/12, saw same ENT, Gerardo Bravo, at #[phone] amb with mild ataxia Dec 2010; Used cane with limp with ambulating in Apr 2011 MRI lumbar Spine 05/15/13: Subtle convex right lumbar scoliosis. Subtle disc bulge at L5-S1. Overall canal and foramen dimensions are acceptable the distal thoracic cord. Lumbar roots appear normal Began lyrica approx Fall [address] Galvan appt 01/07/15: saw Geoffrey at [facility]. Dx with MILD DDD confirmed by MRI, no surg required. Can try steroid injection May 2014, appt with Dr. Brent Boyd, At [facility] #[phone]; dx was 1.spells,2.depresion,3.chronic daily headache,4.lumbar radiculopathy,5.Fibromyalgia, Tx [...] as above in addition #6, optic neuritis, [place] normal MRI disc bulge L5-S1, Saw Dr. Diaz who sent her to psych, Saw Dr. Thomas, who said no surg. , plan : image MRI of orbits/face/neck, begin Amitripyline 100po qhs, stop trazadone 150 [facility] Ricardo Hutchins is rx'er at [facility] for the pt Lyrica/Lexapro/Klonopin RICARDO GONZALEZ, PMHNP-[address] ?[phone] ? Obstructive apnea 08/16/2024 Anxiety 09/29/2023 Acquired [...] omeprazole, Refer to pcp and neurologist to [facility] medications Med list in 2013: Tylenol,gaviscon,alprazolam,benztropine,vit b 12,keppra 500 bid, prilosec 20,metamucil,biotene mouth wash,zoloft 100 daily,simvastatin 20mg daily,trazodone 150mg hs Jan 2022: Heme at [facility] also says no need for further workup, 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 ((Osiris Malone)) Severe episode of recurrent major depressive disorder, without psychotic features (CMS/HCC V24, CMS/HCC V28) 07/19/2016 Overview (08/16/2024): Psych f/u at [facility] on [facility] (Osiris Malone) Suicidal ideation 04/23/2015 Overview (08/16/2024): 04/02/15 + Suicidal ideation, sect 12 to ER; held inpatient + plan + SI [facility] pt [facility] Ricardo Hutchins is rx'er at [facility] for the pt Lyrica/Lexapro/Klonopin RICARDO GONZALEZ, PMHNP-[address] ?[phone] ? NEED RELEASE FOR PSYCH coordination ofcare [...] Mri of the brain done 12/11/14 at [facility]. For ? Optic neuritis left optic nerve lesion, spells.[facility] does not have report form her [...] Mri of the brain done 12/11/14 at [facility]. For ? Optic neuritis left optic nerve lesion, spells.[facility] does not have report form her [...] 2:30 PM EDT Office Visit Orthopedic [facility] [address] [phone] Gabriella Carvalho PA Rotator cuff arthropathy of right shoulder (Primary Dx); Rotator cuff arthropathy of left shoulder; Chronic pain of both shoulders; Cervicalgia 02/21/2025 12:06 PM EDT - 02/21/2025 11:59 PM EDT Hospital Encounter [facility] [address] [place] [address] Chronic right shoulder pain Discharge Disposition: Home or Self Care 02/21/2025 Telephone Orthopedic Surgery [facility] [address] [phone] Gabriella Carvalho PA from Last 3 Months [...] Upcoming Encounters Date Type Department Care Team ([facility] st Contact Info) Description 04/19/2025 8:30 AM EST Office Visit Orthopedic Surgery - [place] [address] [facility] [address] [place] [address] Gabriella Carvalho PA 175 [facility] [address] [place] [address] Health Maintenance Due Date Last Done Comments Breast Cancer Screening 1963 DTaP,Tdap,and Td Vaccines (1 - Tdap) 1982 Cervical Cancer Screening: Pap Smear 1984 Pneumococcal Vaccine: 50+ Years (1 of 1 - PCV) 2013 Hepatitis C Screening 04/04/2022 Social Influencers of Health Screening 04/04/2022 Depression Screening 05/02/2024 Influenza Vaccine (#1) 2024 , 02/16/2022, 02/16/2021, Additional history exists COVID-19 Vaccine (9 - Moderna risk 2024- season) 2025 02/26/2025, 01/04/2024, 01/27/2023, Additional history exists Cholesterol Screening (Lipid Panel) [...] Procedure Name Priority Date/Time Associated Diagnosis Comments ID ARTHROCENTESIS/ASPIR ATION/INJECTION MAJOR JOINT/BURSA W/O U/S GUIDANCE Routine 02/21/2025 2:30 PM EDT Rotator cuff arthropathy of right shoulder Chronic pain of both shoulders XR SHOULDER 2+ VIEWS RIGHT Routine 02/21/2025 12:30 PM EDT Chronic right shoulder pain COLONOSCOPY Routine 09/13/2024 1:18 PM EDT from Last 3 Months or Most Recently Relevant to Health Maintenance Results * ID ARTHROCENTESIS/ASPIRATION/INJECTION MAJOR JOINT/BURSA W/O U/S GUIDANCE (02/21/2025 [...] 02/22/2025 7:45 AM EDT Normal examination. Code 73410 -------- FINAL REPORT -------- Dictated By: Ja Azul Dictated Date: 02/22/2025 07:44 ET Assigned Physician: Ja Azul Reviewed and Electronically Signed By: Ja Azul Signed Date: 02/22/2025 07:45 ET Workstation ID: [id number] Transcribed By: Self Edit Transcribed Date: 02/22/2025 07:44 ET Narrative 02/22/2025 7:45 AM EDT HISTORY: The patient is a 59-year-old female with chronic right shoulder pain, nontraumatic. FINDINGS: AP, right posterior oblique, transscapular, and axillary views of the right shoulder are obtained. The study demonstrates no fracture, dislocation, arthritic change, or other bony abnormality. No soft tissue abnormality is seen. Procedure Note aJ Azul MD - 02/22/2025 HISTORY: The patient is a 59-year-old female with chronic right shoulderpain, nontraumatic. FINDINGS: AP, right posterior oblique, transscapular, and axillary viewsof the right shoulder are obtained. The study demonstrates no fracture,dislocation, arthritic change, or other bony abnormality. No soft tissueabnormality is seen. IMPRESSION: Normal examination. Code 03782 -------- FINAL REPORT -------- Dictated By: Ja Azul Dictated Date: 02/22/2025 07:44 ET Assigned Physician: Ja Azul Reviewed and Electronically Signed By: Ja Azul Signed Date: 02/22/2025 07:45 ET Workstation ID: [id number] Transcribed By: Self Edit Transcribed Date: 02/22/2025 07:44 ET us Gabriella ENRIQUEZ IMG XR PROCEDURES Final Resul t * COLONOSCOPY (09/13/2024 1:18 PM EDT) Anatomical Region Laterality Modality Endoscopy Historical Provider GI~PROCEDURE ORDERABLES F inal Result from Last 3 Months or Most Recently Relevant to Health Maintenance Insurance [facility] MEDICARE Member Subscriber Plan / Payer (Ef fective 2016-Present) Name:BLANCA KELLYRALEIGH Relation to Subscriber:Self Name:Leticia John Pardeep Payer ID:[id number] Group ID:[id number] Type:Not on file Address: [place] [address] [place] [id number] Advance Directives Documents on File Type Date Recorded 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
--- OUTSIDE RECORDS SUMMARY | 2025-04-01 09:45 | XMS_ITS | Clinical Summary ---
Author Organization [facility] Address [address] [place] [address] Phone Care Team Providers Care Radiographer Name Role Phone Garth Rosario [employer] Primary Care Provider [phone] Allergies Active Allergy Reactions Criticality Noted Date Comments Amitriptyline Other (see comments) 01/23/2016 Blurry vision and dizziness Carbamazepine Diarrhea,Nausea And Vomiting,Rash,Other (see comments) Low 11/28/2014 Chicken Allergy Other (see comments) 11/14/2015 GI upset [place] Hives,Other (see comments) 12/16/2014 Codeine Rash,Other (see [...] omeprazole, Refer to pcp and neurologist to [facility] medications Med list in 2013: Tylenol,gaviscon,alprazolam,benztropine,vit b 12,keppra 500 bid, prilosec 20,metamucil,biotene mouth wash,zoloft 100 daily,simvastatin 20mg daily,trazodone 150mg hs Jan 2022: Heme at [facility] also says no need for further workup, 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 Nicole Thompson [place] Office Location & Contact [address] [place] [address] [place] [address] H/O: respiratory disease 01/24/2015 Overview (10/25/2022): Had neg sleep study done 09/2010went to Sleep disorders [facility] November 2020: Not using CPAP Sleep study 12/03/16 at [facility] ordered via Dr. Marta Woods = STEFANO, Mild-mod and referred for BiPAP titration Pituitary microadenoma 12/20/2014 Overview (10/25/2022): Mri of the brain done 12/11/14 at [facility]. For ? Optic neuritis left optic nerve lesion, spells.[facility] does not have report form her [...] Mri of the brain done 12/11/14 at [facility]. For ? Optic neuritis left optic nerve lesion, spells.[facility] does not have report form her [...] 07/23/15 rec approval for tens unit from [facility] 07/16/15: PVSS. Saw Sukhjinder Arce [...] unit given. Lyrica minimally helpful 06/05/15;Tel call [phone] Kalin: ALONZO saw 05/12/15: saw Dr. Ja Piña [phone] had EMG RLE-Normal,s/s worse with weight bearing activities; has wheel chair/walker, and cane per note. Assessment: radicuplothy, lumbar region MRI of the spine, no sig right sided nerve impingment, EMG of the right normal, PT minimally helpful, lyrica with mild improvement, possible SI joint mediated pain, plan injection of SI joint Marisela done 04/22/15 =6 ( normal) 02/13/[address] Hale at [facility] : plan cauda equina steroid injection Began [address] Avis Prajapati Saw ENT for dizziness 07/07/12: no vestibular dysfunction, normal hearing Thrush in 03/31/12, saw same ENT, Gerardo Bravo, at #[phone] amb with mild ataxia Dec 2010; Used cane with limp with ambulating in Apr 2011 MRI lumbar Spine 05/15/13: Subtle convex right lumbar scoliosis. Subtle disc bulge at L5-S1. Overall canal and foramen dimensions are acceptable the distal thoracic cord. Lumbar roots appear normal Began lyrica approx Fall [address] Galvan appt 01/07/15: saw Geoffrey at [facility]. Dx with MILD DDD confirmed by MRI, no surg required. Can try steroid injection May 2014, appt with Dr. Brent Boyd, At [facility] #[phone]; dx was 1.spells,2.depresion,3.chronic daily headache,4.lumbar radiculopathy,5.Fibromyalgia, Tx [...] as above in addition #6, optic neuritis, [place] normal MRI disc bulge L5-S1, Saw Dr. Diaz who sent her to psych, Saw Dr. Thomas, who said no surg. , plan : image MRI of orbits/face/neck, begin Amitripyline 100po qhs, stop trazadone 150 [facility] Ricardo Hutchins is rx'er at [facility] for the pt Lyrica/Lexapro/Klonopin RICARDO GONZALEZ, PMHNP-BC [address] [place] [address] ?[phone] ? 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 No COVID-19 Tested? - No Is patient [...] 10/13/2020 Overview (10/13/2020): Sleep study 12/03/16 at [facility] ordered via Dr. Marta Woods = STEFANO, Mild-mod and referred for BiPAP titration Gastroesophageal reflux disease 08/31/2016 10/13/2020 Insomnia due to anxiety and fear 07/19/2016 10/13/2020 Overview (10/13/2020): PSYCH F/U [facility] Mixed anxiety and depressive disorder 07/19/2016 10/13/2020 Overview (10/13/2020): Psych f/u at [facility] on [address] Obese class I 07/19/2016 10/13/2020 Neck pain 12/04/2015 10/13/2020 Overview (10/13/2020): Pt reported a painful cyst to left neck- req u/s done 11/28/15- it is normal. 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 NEED RELEASE FOR PSYCH coordination ofcare Chondromalacia of bilateral patellas 01/24/2015 10/13/2020 Overview (10/13/2020): 05/24/16Saw Brain IRVIN Palomo- - bilat- pt will do PT- will r/t 6-8 weeks Saw Wenceslao Palomo PA-C September 2014 11/14/12 [facility] no sig. Abnormality right knee film 11/10/11 bilat knee pain normal exam Right ankle film normal 11/10/11 Normal left ankle film 11/10/11 BMD 04/02/11 normal bone density [facility] 01/03/04 normall elft foot film; normal left ankle bilat knee 03/04/05 norml Hyperlipidemia 11/28/2014 10/13/2020 Irritable bowel syndrome with constipation 11/28/2014 10/13/2020 Overview (10/13/2020): Saw GI 01/22/16- Dr. Sonia Khoury MD- [phone]- increaased PPI to bid- added carafate for [...] patient's age to complete this topic Insurance [facility] ([id number]) [facility] ([id number]) [place] [phone] Care Teams Radiographer Relationship Specialty Start Date End Date Garth Rosario FNP [address] [place] [address] PCP - General Nurse Practitioner 10/13/20
== END 2025-04-01 08:48 | disposition home or self-care (01) ==
LOC: HO.XRAY 08:47
PROVIDERS: Visit Provider Physical Medicine & Rehabilitation
DX: M54.2 Cervicalgia (principal); M54.12 Radiculopathy, cervical region
CPT/HCPCS: 72040

== ENCOUNTER → 2025-04-01 08:53 | Outpatient (BNV) | payer OTHER, SELFPAY | PROVIDERS: Visit Provider Radiology Diagnostic Ultrasound | DX: M47.812 Spondylosis without myelopathy or radiculopathy, cervical region (principal) | CPT/HCPCS: 72040 ==

== ENCOUNTER 2025-04-10 19:37 | Outpatient (REF) | payer OTHER, SELFPAY ==
--- OUTSIDE RECORDS SUMMARY | 2024-02-22 15:11 | XMS_ITS | Encounter Summary ---
Author Organization [facility] Address [address] [place] [address] Care Team Providers Care Propulsion Systems Engineer Name Role Phone Amna Phillip Primary Care Provider Encounter Details Date Type Department Care Team (Late st Contact Info) Description 02/22/2024 4:11 PM EDT Hospital Encounter TH HISTORIC ENCOUNTERS EASTERN CONVERSION ONLY Kristen Foster, JERMAINE [address] [place] [address] Social History Tobacco Use Types Packs/Day Years [...] AM EST Office Visit Orthopedic Surgery - [place] [address] [facility] [address] [place] [phone] Gabriella Carvalho PA [address] [facility] [address] [place] [address] documented as of this encounter Procedures Procedure Name Priority Date/Time Associated Diagnosis Comments CR SHOULDER LT MIN 2 VIEW Routine 02/22/2024 5:15 PM EDT documented in this encounter Results * CR SHOULDER LT MIN 2 VIEW (02/22/2024 5:15 PM EDT) Anatomical Region Laterality Modality Radiographic Chloé ging 02/22/2024 4:19 PM EDT Narrative 02/22/2024 5:15 PM EDT [facility] Diagnostic Imaging Department [address] [place] [address] Patient: JANICECHRISTIANE /Age/Sex: 1965 - 58 - F Unit#: [id number] Location/Status: SPDIGEN/REG CLI Mnemonic/Ordering Site: [facility] Ordering [...] Procedure Note Cyril Main MD - 02/28/2024 [facility] Diagnostic Imaging Department [address] [place] [address] Patient: CHRISTIANE KELLY Pardeep /Age/Sex: 1965 - 58 - F Unit#: [id number] Location/Status: SPDIGEN/REG CLI Mnemonic/Ordering Site: [facility] Ordering Physician: KRISTEN FOSTER WINDSURFING INSTRUCTOR CR Shoulder LT Min 2 View - 02/22/24 - [id number] Report Status:Signed EXAMINATION: LEFT SHOULDER CLINICAL INFORMATION: [...] 02/22/241712 Sign date/Time: 02/22/241714 us Kristen Foster WINDSURFING INSTRUCTOR IMG XR PROCEDURES Final Resul t documented in this encounter Visit Diagnoses Not on filedocumented in this encounter Care Teams Propulsion Systems Engineer Relationship Specialty Start Date End Date Amna Phillip FNP [facility] [place] [address] PCP - General 09/30/22 documented as of this encounter
--- NOTE | ~2025-04-10 | MR_ITS ---
EXAMINATION: MR CERVICAL SPINE WITHOUT CONTRAST CLINICAL INFORMATION: M 54.12. Radiculopathy, cervical region. COMPARISON: Correlated to x-ray dated April 01, 2025. TECHNIQUE: MRI of the cervical spine was obtained using routine sequences without contrast. FINDINGS: Craniocervical junction is intact. Normal position of the cerebellar tonsils. No bone marrow STIR signal abnormality. Cervical spinal cord signal is normal. Multilevel marginal osteophyte formation and disc desiccation pronounced at C5-6. Normal alignment. C2-3: No disc herniation. No neuroforamina stenosis. C3-4: Broad-based disc osteophyte compresses formation. No central spinal canal or neuroforamina stenosis. C4-5: Broad-based disc osteophyte complex formation. Reduced AP diameter of the thecal sac. No cord compression. No neuroforamina stenosis. Right perineural cysts. C5-6: Left subarticular and foraminal disc herniation resulting in ventral deformity of the spinal cord and left neuroforamina stenosis. No right neuroforamina stenosis. C6-7: Broad-based disc osteophyte compresses formation producing the AP diameter of the thecal sac. Bilateral perineural cysts. No neuroforamina stenosis. C7-T1: No disc herniation. No neuroforamina stenosis. Right perineural cysts. No prevertebral compartment hematoma, mass or fluid collections. Flow-void signal within the main vessels is normal. Left vertebral artery is dominant. MR/MR cervical spine wo con IMPRESSION: Cervical spondylosis C5-6 with a left subarticular and foraminal disc herniation resulting in left neuroforamina stenosis. No cord edema and or myelopathy. Electronically signed by: Paul Amaya MD 04/11/2025 06:42 AM EST
--- OUTSIDE RECORDS SUMMARY | 2025-04-11 01:00 | XMS_ITS | Clinical Summary ---
Author Organization [facility] Address [address] [place] [address] Phone Care Team Providers Care Bead Forming Machine Operator Name Role Phone Amna Phillip [facility] Primary Care Provider [phone] Allergies Active Allergy Reactions Criticality Noted Date Comments Amitriptyline Headache,Other 01/23/2016 Blurry vision and dizziness Carbamazepine Diarrhea,Nausea And Vomiting,Rash,Other Low 11/28/2014 Chicken Derived Other 11/14/2015 GI upset Chicken Meat Extract 11/14/2015 GI upset Chocolate Rash 07/25/2024 [place] Hives,Other 12/16/2014 Codeine Rash,Other Low 11/28/2014 Egg [...] 07/23/15 rec approval for tens unit from [facility] 07/16/15: PVSS. Saw Sukhjinder Arce [...] unit given. Lyrica minimally helpful 06/05/15;Tel call [phone] Kalin: PVSS saw 05/12/15: saw Dr. Ja Piña [phone] had EMG RLE-Normal,s/s worse with weight bearing activities; has wheel chair/walker, and cane per note. Assessment: radicuplothy, lumbar region MRI of the spine, no sig right sided nerve impingment, EMG of the right normal, PT minimally helpful, lyrica with mild improvement, possible SI joint mediated pain, plan injection of SI joint Marisela done 04/22/15 =6 ( normal) 02/13/[address] Hale at [facility] : plan cauda equina steroid injection Began [address] Avis Prajapati Saw ENT for dizziness 07/07/12: no vestibular dysfunction, normal hearing Thrush in 03/31/12, saw same ENT, Gerardo Bravo, at #[phone] amb with mild ataxia Dec 2010; Used cane with limp with ambulating in Apr 2011 MRI lumbar Spine 05/15/13: Subtle convex right lumbar scoliosis. Subtle disc bulge at L5-S1. Overall canal and foramen dimensions are acceptable the distal thoracic cord. Lumbar roots appear normal Began lyrica approx Fall [address] Galvan appt 01/07/15: saw Geoffrey at [facility]. Dx with MILD DDD confirmed by MRI, no surg required. Can try steroid injection May 2014, appt with Dr. Brent Boyd, At [facility] #[phone]; dx was 1.spells,2.depresion,3.chronic daily headache,4.lumbar radiculopathy,5.Fibromyalgia, Tx [...] as above in addition #6, optic neuritis, [place] normal MRI disc bulge L5-S1, Saw Dr. Diaz who sent her to psych, Saw Dr. Thomas, who said no surg. , plan : image MRI of orbits/face/neck, begin Amitripyline 100po qhs, stop trazadone 150 [facility] Ricardo Hutchins is rx'er at [facility] for the pt Lyrica/Lexapro/Klonopin RICARDO GONZALEZ, PMHNP-[address] ?[phone] ? 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 ((Osiris Malone)) Severe episode of recurrent major depressive disorder, without psychotic features 07/19/2016 Overview (08/16/2024): Psych f/u at [facility] on [facility] (Osiris Malone) Suicidal ideation 04/23/2015 Overview (08/16/2024): 04/02/15 + Suicidal ideation, sect 12 to ER; held inpatient + plan + SI [facility] pt [facility] Ricardo Hutchins is rx'er at [facility] for the pt Lyrica/Lexapro/Klonopin RICARDO GONZALEZ, [facility] ?[phone] ? NEED RELEASE FOR PSYCH coordination ofcare Chondromalacia of both patellae 01/24/2015 Overview (08/16/2024): 05/24/16Saw Brain IRVIN Palomo- - bilat- pt will do PT- will r/t 6-8 weeks Saw Wenceslao Palomo PA-C September 2014 11/14/12 lucien no sig. Abnormality right knee film 11/10/11 bilat knee pain normal exam Right ankle film normal 11/10/11 Normal left ankle film 11/10/11 BMD 12/2/11 normal bone density [facility] 01/03/04 normall elft foot film; normal left ankle bilat knee 03/04/05 norml Lumbar radiculopathy 01/24/2015 Overview (08/16/2024): August 2023-Followed by physiatry at [address] [facility], [facility]-gets injections 09/15/15 saw PVSS TENS unti 50% [...] disc bulge C4-5, and C5-6 Pituitary microadenoma 12/20/2014 Overview (08/16/2024): Mri of the brain done 12/11/14 at [facility]. For ? Optic neuritis left optic [...] Mri of the brain done 12/11/14 at [facility]. For ? Optic neuritis left optic [...] 2:30 PM EDT Office Visit Orthopedic Surgery [facility] [address] [phone] Gabriella Carvalho PA Rotator cuff arthropathy of right shoulder (Primary Dx); Rotator cuff arthropathy of left shoulder; Chronic pain of both shoulders; Cervicalgia 02/21/2025 12:06 PM EDT - 02/21/2025 11:59 PM EDT Hospital Encounter [facility] Xray [address] [place] [phone] Chronic right shoulder pain Discharge Disposition: Home or Self Care 02/21/2025 Telephone Orthopedic Surgery [facility] [address] [phone] Gabriella Carvalho PA from Last 3 Months [...] AM EST Office Visit Orthopedic Surgery [facility] [place] [address] [facility] [address] [place] [phone] Gabriella Carvalho PA [address] [facility] [address] [place] [address] Health Maintenance Due Date Last Done Comments Breast Cancer Screening 1965 DTaP,Tdap,and Td Vaccines (1 - Tdap) 1982 Cervical Cancer Screening: Pap Smear 1984 Pneumococcal Vaccine: 50+ Years (1 of 1 - PCV) 2013 Hepatitis C Screening 04/04/2022 Medicare Annual Wellness Visit 04/04/2022 Social Influencers of Health Screening 04/04/2022 [...] Procedure Name Priority Date/Time Associated Diagnosis Comments HI ARTHROCENTESIS/ASPIR ATION/INJECTION MAJOR JOINT/BURSA W/O U/S GUIDANCE Routine 02/21/2025 2:30 PM EDT Rotator cuff arthropathy of right shoulder Chronic pain of both shoulders XR SHOULDER 2+ VIEWS RIGHT Routine 02/21/2025 12:30 PM EDT Chronic right shoulder pain COLONOSCOPY Routine 09/13/2024 1:18 PM EDT from Last 3 Months or Most Recently Relevant to Health Maintenance Results * HI ARTHROCENTESIS/ASPIRATION/INJECTION MAJOR JOINT/BURSA W/O U/S GUIDANCE (02/21/2025 [...] 02/22/2025 7:45 AM EDT Normal examination. Code 77068 -------- FINAL REPORT -------- Dictated By: Ja Azul Dictated Date: 02/22/2025 07:44 ET Assigned Physician: Ja Azul Reviewed and Electronically Signed By: Ja Azul Signed Date: 02/22/2025 07:45 ET Workstation ID: [id number] Transcribed By: Self Edit Transcribed Date: 02/22/2025 [...] tissueabnormality is seen. IMPRESSION: Normal examination. Code 91901 -------- FINAL REPORT -------- Dictated By: Ja Azul Dictated Date: 02/22/2025 07:44 ET Assigned Physician: Ja Azul Reviewed and Electronically Signed By: Ja Azul Signed Date: 02/22/2025 07:45 ET Workstation ID: [id number] Transcribed By: Self Edit Transcribed Date: 02/22/2025 07:44 ET us Gabriella ENRIQUEZ IMG XR PROCEDURES Final Resul t * COLONOSCOPY (09/13/2024 1:18 PM EDT) Anatomical Region Laterality Modality Endoscopy us Historical Provider GI~PROCEDURE ORDERABLES F inal Result from Last 3 Months or Most Recently Relevant to Health Maintenance Insurance [facility] MEDICARE Member Subscriber Plan / Payer (Ef fective 2016-Present) Name:CHRISTIANE KELLY Relation to Subscriber:Self Name:Christiane Kelly Pardeep Payer ID:[id number] Group ID:[id number] Type:Not on file Address: [facility] [place] [phone] Advance Directives Documents on File Type Date Recorded 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
--- OUTSIDE RECORDS SUMMARY | 2025-04-11 01:00 | XMS_ITS | Data Portability ---
Author Organization [facility], [facility] Address [address] [place] [phone] Care Team Providers Care Avionics Mechanic Name Role Phone HIM CCA OTHER Assessment Encounter Date Assessment Date Assessment LastModified by Organization Details LastModified Time 10/11/2024 10/11/2024 Evaluation in the field was performed by my flat surfacer jewel colleague, as noted above, I provided real-time [...] Name and Address Organization Details Recorded Time 48310 codeine medicatio n Not available Not available [...] Recorded Respiratory rate Body temperature Oxygen saturation Heart rate Systolic And Diastolic Provider Name and Address Organization Details Last Updated DateTime 5 16 /min 98.9 [degF] 96 % 90 /min 152/90 mm[Hg] Not Available [employer] - production 13:08:34 Social History None recorded. Functional Status None recorded. Mental Status None recorded. Family History Nothing Reported. Medical History No medical history recorded. Gynecological HistoryNo gynecological history recorded. Obstetrics History GPAL:G 0 P 0 0 0 0 Past Encounters Encounter ID Performer Location Encounter Start Date Encounter Closed Date Diagnosis/Indication Diagnosis SNOMED-CT Code Diagnosis ICD10 Code Diagnosis IMO Codes Diagnosis Note [id number] Barbara Nguyen MD [facility] ED Medical [address] [phone] 10/11/2024 13:08:22 10/11/2024 19:59:32 Low back pain 645657621 M54.50 77564921 Contusion of sacral region 913789190 S30.0XXA 8789928 Health Concerns Section Related Observation LastModified by Organization Detai ls LastModified Time None Recorded Concern Status LastModified by Organization Details LastModified Time None Recorded Advance Directives Directive None Recorded Payers Insurance Date Sequence Insurance Name Policy Number Policy Clark Covered Member ID Clark Member ID Guarantor Name 10/11/2024 1 [facility] [employer]I[facility] - DOS ON OR AFTER 2022 - DUAL ELIGIBLE - RETIREMENT OPTIONS AND ONE CARE (MEDICARE REPLACEMENT/ADV ANTAGE - HMO) John Kelly [id number] John eKlly Notes Date Note Type Note Provider Name [...] in the care of this patient. The [facility] closed the encounter in [place] before the medic summary crossed over so I am entering it here: [id number] yof found sitting up on couch, awake [...] concerns or unanswered questions.Services ProvidedPatient EducationReferring Provider Labs---[facility] Lab Orders---[facility] Medication Orders---DispositionFul filledWas patient sent to ED?[facility] consulted on the case?Yes- Barbara Nguyen MD [address] [facility],[address], [place], [address], JORDAN - SHERPA assistant 10/26/2024 15:02:50 OBGyn Episode No OBEpisode recorded.
--- OUTSIDE RECORDS SUMMARY | 2025-04-11 01:00 | XMS_ITS | Clinical Summary ---
Author Organization [facility] Address [address] [place] [address] Phone Care Team Providers Care Soil Field Technician Name Role Phone Garth Rosario OVEN BAKER Primary Care Provider [phone] Allergies Active Allergy Reactions Criticality Noted Date Comments Amitriptyline Other (see comments) 01/23/2016 Blurry vision and dizziness Carbamazepine Diarrhea,Nausea And Vomiting,Rash,Other (see comments) Low 11/28/2014 Chicken Allergy Other (see comments) 11/14/2015 GI upset [place] Hives,Other (see comments) 12/16/2014 Codeine Rash,Other (see [...] daily,trazodone 150mg hs Jan 2022: Heme at [facility] also says no need for [...] hs Kidney lesion 08/24/2019 Overview (10/13/2020): MRI [facility] Jun 2020: Simple cysts of malrotated kidney at [facility] CT abdomen-06/2019-11 mm lesion in the [...] per id note 07/26/12; since 2003; on [facility] Dr. Nicole Thompson CT Office Location & Contact [address] [place] [address] [place] [address] H/O: respiratory disease 01/24/2015 Overview (10/25/2022): Had neg sleep study done 09/2010went to Sleep [facility] November 2020: Not using CPAP Sleep study 12/03/16 at [facility] ordered via Dr. Marta Woods = STEFANO, Mild-mod and referred for BiPAP titration Pituitary microadenoma 12/20/2014 Overview (10/25/2022): Mri of the brain done 12/11/14 at [facility]. For ? Optic neuritis left optic nerve lesion, spells[facility] not have report form her [...] Mri of the brain done 12/11/14 at [facility]. For ? Optic neuritis left optic nerve lesion, spells[facility] not have report form her [...] 07/23/15 rec approval for tens unit from [facility] 07/16/15: PVSS. Saw Sukhjinder Arce MD No [...] unit given. Lyrica minimally helpful 06/05/15;Tel call [phone] Kalin: ALONZO saw 05/12/15: saw Dr. Ja Piña [phone] had EMG RLE-Normal,s/s worse with weight bearing activities; has wheel chair/walker, and cane per note. Assessment: radicuplothy, lumbar region MRI of the spine, no sig right sided nerve impingment, EMG of the right normal, PT minimally helpful, lyrica with mild improvement, possible SI joint mediated pain, plan injection of SI joint Marisela done 04/22/15 =6 ( normal) 02/13/[address] Hale at [facility] : plan cauda equina steroid injection Began [address] Avis Prajapati Saw ENT for dizziness 07/07/12: no vestibular dysfunction, normal hearing Thrush in 03/31/12, saw same ENT, Gerardo Bravo, at #[phone] amb with mild ataxia Dec 2010; Used cane with limp with ambulating in Apr 2011 MRI lumbar Spine 05/15/13: Subtle convex right lumbar scoliosis. Subtle disc bulge at L5-S1. Overall canal and foramen dimensions are acceptable the distal thoracic cord. Lumbar roots appear normal Began lyrica approx Fall [address] Galvan appt 01/07/15: saw Geoffrey at [facility]. Dx with MILD DDD confirmed by MRI, no surg required. Can try steroid injection May 2014, appt with Dr. Brent Boyd, At [facility] #[phone]; dx was 1.spells,2.depresion,3.chronic daily headache,4.lumbar radiculopathy,5.Fibromyalgia, Tx [...] as above in addition #6, optic neuritis, [place] normal MRI disc bulge L5-S1, Saw Dr. Diaz who sent her to psych, Saw Dr. Thomas, who said no surg. , plan : image MRI of orbits/face/neck, begin Amitripyline 100po qhs, stop trazadone 150 [facility] Ricardo Hutchins is rx'er at [facility] for the pt Lyrica/Lexapro/Klonopin RICARDO GONZALEZ, PMHNP-BC [address] [place] [address] ?[phone] ? 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 No COVID-19 Tested? - No Is patient [...] 10/13/2020 Overview (10/13/2020): Sleep study 12/03/16 at [facility] ordered via Dr. Marta Woods = STEFANO, Mild-mod and referred for BiPAP titration Gastroesophageal reflux disease 08/31/2016 10/13/2020 Insomnia due to anxiety and fear 07/19/2016 10/13/2020 Overview (10/13/2020): PSYCH F/U [facility] Mixed anxiety and depressive disorder 07/19/2016 10/13/2020 Overview (10/13/2020): Psych f/u at [facility] on [address] Obese class I 07/19/2016 10/13/2020 Neck pain 12/04/2015 10/13/2020 Overview (10/13/2020): Pt reported a painful cyst to left neck- req u/s done 11/28/15- it is normal. 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 NEED RELEASE FOR PSYCH coordination ofcare Chondromalacia of bilateral patellas 01/24/2015 10/13/2020 Overview (10/13/2020): 05/24/16Saw Brain IRVIN Palomo- - bilat- pt will do PT- will r/t 6-8 weeks Saw Wenceslao Palomo PA-C September 2014 11/14/12 [facility] no sig. Abnormality right knee film 11/10/11 bilat knee pain normal exam Right ankle film normal 11/10/11 Normal left ankle film 11/10/11 BMD 04/02/11 normal bone density [facility] 01/03/04 normall elft foot film; normal left ankle bilat knee 03/04/05 norml Hyperlipidemia 11/28/2014 10/13/2020 Irritable bowel syndrome with constipation 11/28/2014 10/13/2020 Overview (10/13/2020): Saw GI 01/22/16- Dr. Sonia Khoury MD- [phone]- increaased PPI to bid- added carafate for [...] patient's age to complete this topic Insurance [facility] ([id number]) [facility] ([id number]) [place] [phone] Care Teams Soil Field Technician Relationship Specialty Start Date End Date Garth Rosario FNP [address] [place] [address] PCP - General Nurse Practitioner 10/13/20
== END 2025-04-10 19:38 ==
LOC: HO.MRI 19:37
PROVIDERS: PCP Nurse Practitioner Family; Visit Provider Physical Medicine & Rehabilitation
DX: M54.12 Radiculopathy, cervical region (principal); M54.2 Cervicalgia
CPT/HCPCS: 72141

== ENCOUNTER → 2025-04-10 19:38 | Outpatient (BNV) | payer OTHER, SELFPAY | PROVIDERS: PCP Nurse Practitioner Family; Visit Provider Radiology Diagnostic Radiology | DX: M47.22 Other spondylosis with radiculopathy, cervical region (principal); M50.222 Other cervical disc displacement at C5-C6 level; M48.02 Spinal stenosis, cervical region | CPT/HCPCS: 72141 ==

== ENCOUNTER 2025-04-16 10:36 | Outpatient (AMB) | payer OTHER, SELFPAY ==
--- OUTSIDE RECORDS SUMMARY | 2024-02-22 15:11 | XMS_ITS | Encounter Summary ---
Author Organization [facility] Address [address] [place] [address] Care Team Providers Care Acid Adjuster Name Role Phone Amna Phillip Primary Care Provider Encounter Details Date Type Department Care Team (Late st Contact Info) Description 02/22/2024 4:11 PM EDT Hospital Encounter TH HISTORIC ENCOUNTERS EASTERN CONVERSION ONLY Kristen Foster, JERMAINE [address] [place] [address] Social History Tobacco Use Types Packs/Day Years [...] AM EST Office Visit Orthopedic Surgery - [place] [address] [facility] [address] [place] [phone] Gabriella Carvalho PA [address] [facility] [address] [place] [address] documented as of this encounter Procedures Procedure Name Priority Date/Time Associated Diagnosis Comments CR SHOULDER LT MIN 2 VIEW Routine 02/22/2024 5:15 PM EDT documented in this encounter Results * CR SHOULDER LT MIN 2 VIEW (02/22/2024 5:15 PM EDT) Anatomical Region Laterality Modality Radiographic Chloé ging 02/22/2024 4:19 PM EDT Narrative 02/22/2024 5:[address] [facility] Diagnostic Imaging Department [address] [place] [address] Patient: JANICECHRISTIANE /Age/Sex: 1965 - 58 - F Unit#: [id number] Location/Status: SPDIGEN/REG CLI Mnemonic/Ordering Site: [facility] Ordering [...] Note Cyril Main MD - 02/28/2024 [facility] Diagnostic Imaging Department [address] [place] [address] Patient: CHRISTIANE KELLY Pardeep /Age/Sex: 1965 - 58 - F Unit#: [id number] Location/Status: SPDIGEN/REG CLI Mnemonic/Ordering Site: [facility] Ordering Physician: KRISTEN FOSTER MATTRESS PACKER CR Shoulder LT Min 2 View - 02/22/24 - [id number] Report Status:Signed EXAMINATION: LEFT SHOULDER CLINICAL INFORMATION: [...] 02/22/241712 Sign date/Time: 02/22/241714 us Kristen Foster MATTRESS PACKER IMG XR PROCEDURES Final Resul t documented in this encounter Visit Diagnoses Not on filedocumented in this encounter Care Teams Acid Adjuster Relationship Specialty Start Date End Date Amna Phillip FNP [facility] [place] [address] PCP - General 09/30/22 documented as of this encounter
[2025-04-16 10:55] VITALS: BMI 27.8
--- NOTE | 2025-04-16 10:55 | A.PHYSOV ---
Vital Signs 04/16/25 10:55 Height 5 ft 4 in Weight 162 lb BMI 27.8 Intake Visit Reasons: MRI followup- scheduled 04/10/2025 Intake Note: Patient is a 60 year old female in office today for a one month follow up visit. Apricot Packer Required: No Allergies carbamazepine Allergy (Unknown, Verified 04/16/25 10:56) Unknown lactose Allergy (Unknown, Verified 04/16/25 10:56) Unknown peanut Allergy (Unknown, Verified 04/16/25 10:56) Unknown pork derived (porcine) Allergy (Unknown, Verified 04/16/25 10:56) Unknown turkey Allergy (Unknown, Verified 04/16/25 10:56) Unknown amitriptyline Allergy (Verified 04/16/25 10:56) Unknown chocolate Allergy (Verified 04/16/25 10:56) Unknown codeine Allergy (Verified 04/16/25 10:56) Unknown egg Allergy (Verified 04/16/25 10:56) Unknown ibuprofen Allergy (Verified 04/16/25 10:56) Unknown milk Allergy (Verified 04/16/25 10:56) Unknown Penicillins Allergy (Verified 04/16/25 10:56) Unknown pineapple Allergy (Verified 04/16/25 10:56) Unknown chicken derived Adverse Reaction (Verified 04/16/25 10:56) Gastrointestinal Upset HPI Comments Details: History of Present Illness The patient is a 60-year-old female presenting for a follow-up visit for neck pain. Her cervical symptoms are of recent onset and consist of left-sided neck pain that radiates down her left arm to the elbow; she also notes some pain on the right side. She has previously tried physical therapy with some improvement. The patient also has a history of bilateral rotator cuff issues managed by an orthopedic provider. She received a left shoulder injection in late January or early March that provided relief for about two to three months, and has also received a right shoulder injection which helped significantly. Her orthopedic provider, a physician assistant director of plant operations, indicated that another injection could not be done in the same area of the left shoulder. She reports a history of lower back pain, for which she has had an excellent response to lumbar epidural injections. She has an upcoming appointment for a lumbar epidural injection for sciatica on May 06, 2025. The patient also reports a fall backwards on October 05, 2024, which may have irritated her neck pain, though recent imaging was obtained after this event. She returns today with results of cervical spine x-rays and MRI. Most pertinent finding on her MRI was evidence of left subarticular and foraminal disc herniation at the C5-C6 level causing left foraminal stenosis. Pain Description - Location: The patient reports neck pain, primarily on the left side, which radiates down the left arm to the elbow. - Associated symptoms: She also has pain in the right side of her neck and shoulder area. - Exacerbating factors: Back pain is irritated at night when she lies on her side. Results - Imaging: - Cervical Spine X-ray (April 01, 2025): Showed relatively mild and age-appropriate spondylosis with no significant abnormalities. - Cervical Spine MRI (April 10, 2025): Findings include cervical spondylosis at C5-C6 with a left subarticular and foraminal disc herniation causing left neural foraminal stenosis, and diffuse degenerative changes. [facility] Medical History (Updated 04/16/25 @ 12:39 by Ajay Fernandez DO) Cervical spinal stenosis Hypertension CKD (chronic kidney disease) stage 2, GFR 60-89 ml/min Hyperparathyroidism Malrotation of kidney Renal cyst Surgical History History of carpal tunnel surgery (Unknown) History of facial surgery History of hysterectomy H/O hernia repair History of surgical removal of ganglion cyst Family History Mother Diabetes Maternal Aunt Kidney disease Cancer Social History Alcohol intake: never Patient Tobacco Use Status: Never used Tobacco Review of Systems Narrative Review of Systems - Musculoskeletal: Reports neck pain, bilateral shoulder pain associated with rotator cuff issues, and lower back pain. - Neurological: Reports left-sided radicular pain from the neck down to the elbow. Lower back pain. Lumbar radiculitis. Denies change in bowel bladder habits, denies fever or chills Physical Exam Exam Exam: Physical Exam - Musculoskeletal: Tenderness elicited with palpation and movement of the left neck and shoulder region. Patient was examined in the wheelchair. Pain with end point of left shoulder abduction. Limited abduction. Positive Hernandez and Neer signs, negative drop-arm test. Gait was not tested today. Dural tension signs were negative. Cervical range of motion was restricted side bending and rotation in either direction. Tenderness with palpation over lower cervical paraspinal muscles. Vital Signs: BMI result Body Mass Index 27.8 Assessment & Plan Assessment & Plan (1) Neck pain: Code(s): M54.2 - Cervicalgia Category: Medical (2) Shoulder pain, bilateral: Code(s): M25.511 - Pain in right shoulder; M25.512 - Pain in left shoulder Category: Medical Qualifiers: Chronicity: chronic Qualified Code(s): M25.511 - Pain in right shoulder; M25.512 - Pain in left shoulder; G89.29 - Other chronic pain (3) Chronic lumbar radiculopathy: Code(s): M54.16 - Radiculopathy, lumbar region Category: Medical (4) Cervical radiculitis: Code(s): M54.12 - Radiculopathy, cervical region Category: Medical (5) Cervical spinal stenosis: Code(s): M48.02 - Spinal stenosis, cervical region Category: Medical Plan Pain Management - Analgesia: The patient has a history of excellent response to lumbar epidural injections for her back pain. - Past Interventions: She has received shoulder injections from an orthopedic provider, including one in the left shoulder which provided relief for 2-3 months and one in the right shoulder which was very helpful. - Activities of Daily Living: Her back pain interferes with her sleep, preventing her from lying on one side. Plan Patient was informed and verbally consented to the use of an ambient scribe for clinic note documentation during this visit. 1. Cervicalgia With Left-Sided Radiculopathy The patient's report of left-sided neck pain radiating to the elbow is consistent with the cervical spine MRI finding of a left C5-C6 disc herniation resulting in left neural foraminal stenosis. A left C6 transforaminal epidural steroid injection is planned to address these radicular symptoms. The procedure will be performed at [facility] under sedation. This will be scheduled for a separate day from her lumbar injection, likely the following week, as the patient positioning for the two procedures is different. The clinic will place the order and the hospital will contact the patient for scheduling. 2. Bilateral Rotator Cuff Disorder The patient has a diagnosis of rotator cuff issues in both shoulders and is under the care of an orthopedic group. While a shoulder injection was considered, it was decided to defer management of her shoulder to her orthopedic provider to avoid interfering with their established plan of care. 3. Lumbago With Sciatica The patient has a history of sciatica with an excellent response to prior lumbar epidural injections. She has a lumbar injection already scheduled for May 06, 2025 and expressed a desire to proceed with that procedure first, as her back pain currently interferes with her sleep. Discussion Notes I reviewed the results of the recent cervical spine x-ray and MRI with the patient. After confirming her symptoms are primarily on the left side, I explained that the MRI findings of a left C5-C6 disc herniation with neural foraminal stenosis correlate well with her reported neck pain radiating to the left arm. We discussed that while some pain may originate from her shoulder, for which she is seeing an foot specialist, the neck is a likely source for her radicular symptoms. I recommended a left C6 transforaminal epidural steroid injection. I informed her that because I am now part of the [facility], the procedure will be done at [facility] with sedation and requires her to lie on her back. We discussed that this cannot be done on the same day as her scheduled lumbar injection for sciatica, as that procedure requires her to lie on her stomach. The patient agreed to this plan and expressed a preference to have her lumbar injection on May 06 performed first, with the neck injection to follow, possibly the next week. We agreed I would leave her shoulder care to the orthopedic group. Patient Instructions - You are scheduled to have an injection in your lower back for sciatica on May 06, 2025. Please proceed with this appointment as planned. - We will be scheduling a separate injection for your neck pain (left C6 transforaminal injection). This will likely be the week after your back procedure. - The neck injection will be performed at [facility], and you will receive sedation to help you relax. - Someone from the hospital will call you to schedule the appointment for your neck injection. - You must have someone drive you to and from your neck injection appointment. - Continue to follow up with your orthopedic doctor for your shoulder pain. Coding Level of Care Code Est Pt Level 4 (30776) Add On Problem Visit Only Diagnoses Neck pain M54.2 Chronic pain of both shoulders M25.511; M25.512; G89.29 Chronicity: chronic Chronic lumbar radiculopathy M54.16 Cervical radiculitis M54.12 Cervical spinal stenosis M48.02
--- OUTSIDE RECORDS SUMMARY | 2025-04-16 13:26 | XMS_ITS | Clinical Summary ---
Author Organization [facility] Address [address] [place] [address] Phone Care Team Providers Care Plumbing Inspector Name Role Phone Amna Phillip [facility] Primary Care Provider Allergies Active Allergy Reactions Criticality Noted Date Comments Amitriptyline Headache,Other 01/23/2016 Blurry vision and dizziness Carbamazepine Diarrhea,Nausea And Vomiting,Rash,Other Low 11/28/2014 Chicken Derived Other 11/14/2015 GI upset Chicken Meat Extract 11/14/2015 GI upset Chocolate Rash 07/25/2024 Ridgely Hives,Other 12/16/2014 Codeine Rash,Other Low 11/28/2014 Egg [...] 07/23/15 rec approval for tens unit from [facility] 07/16/15: [facility]. Saw Sukhjinder [...] unit given. Lyrica minimally helpful 06/05/15;Tel call [phone] Kalin: [facility] saw 05/12/15: saw Dr. Ja Piña [phone] had EMG RLE-Normal,s/s worse with weight bearing activities; has wheel chair/walker, and cane per note. Assessment: radicuplothy, lumbar region MRI of the spine, no sig right sided nerve impingment, EMG of the right normal, PT minimally helpful, lyrica with mild improvement, possible SI joint mediated pain, plan injection of SI joint Marisela done 04/22/15 =6 ( normal) 02/13/[address] Hale at [facility] : plan cauda equina steroid injection Began [address] Aivs Prajapati Saw ENT for dizziness 07/07/12: no vestibular dysfunction, normal hearing Thrush in 03/31/12, saw same ENT, Gerardo Bravo, at #[phone] amb with mild ataxia Dec 2010; Used cane with limp with ambulating in Apr 2011 MRI lumbar Spine 05/15/13: Subtle convex right lumbar scoliosis. Subtle disc bulge at L5-S1. Overall canal and foramen dimensions are acceptable the distal thoracic cord. Lumbar roots appear normal Began lyrica approx Fall [address] Galvan appt 01/07/15: saw Geoffrey at [facility]. Dx with MILD DDD confirmed by MRI, no surg required. Can try steroid injection May 2014, appt with Dr. Brent Boyd, At [facility] #[phone]; dx was 1.spells,2.depresion,3.chronic daily headache,4.lumbar radiculopathy,5.Fibromyalgia, Tx [...] as above in addition #6, optic neuritis, ROSEBUD normal MRI disc bulge L5-S1, Saw Dr. Diaz who sent her to psych, Saw Dr. Thomas, who said no surg. , plan : image MRI of orbits/face/neck, begin Amitripyline 100po qhs, stop trazadone 150 BHN Ricardo Hutchins is rx'er at [facility] for the pt Lyrica/Lexapro/Klonopin RICARDO GONZALEZ, PMHNP-[address] ?[id number] ? 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 (Osiris Malone) Suicidal ideation 04/23/2015 Overview (08/16/2024): 04/02/15 + Suicidal ideation, sect 12 to ER; held inpatient + plan + SI [facility] pt [facility] Ricardo Hutchins is rx'er at [facility] for the pt Lyrica/Lexapro/Klonopin RICARDO GONZALEZ, [facility] ?[id number] ? NEED RELEASE FOR PSYCH coordination ofcare Chondromalacia of both patellae 01/24/2015 Overview (08/16/2024): 05/24/16Saw Brain IRVIN Palomo- - bilat- pt will do PT- will r/t 6-8 weeks Saw Wenceslao Palomo PA-C September 2014 11/14/12 lucien no sig. Abnormality right knee film 11/10/11 bilat knee pain normal exam Right ankle film normal 11/10/11 Normal left ankle film 11/10/11 BMD 12/2/11 normal bone density [facility] 01/03/04 normall elft foot film; normal left ankle bilat knee 03/04/05 norml Lumbar radiculopathy 01/24/2015 Overview (08/16/2024): August 2023-Followed by physiatry at [facility]-gets injections 09/15/15 saw [facility]SS TENS unti 50% [...] Mri of the brain done 12/11/14 at [facility]. For ? Optic neuritis left optic nerve lesion, spells.[facility] does not have report form her visit [...] Mri of the brain done 12/11/14 at [facility]. For ? Optic neuritis left optic nerve lesion, spells.[facility] does not have report form her visit [...] 2:30 PM EDT Office Visit Orthopedic Surgery [facility] [address] [phone] Gabriella Carvalho PA Rotator cuff arthropathy of right shoulder (Primary Dx); Rotator cuff arthropathy of left shoulder; Chronic pain of both shoulders; Cervicalgia 02/21/2025 12:06 PM EDT - 02/21/2025 11:59 PM EDT Hospital Encounter [facility] Xray [address] [place] [phone] Chronic right shoulder pain Discharge Disposition: Home or Self Care 02/21/2025 Telephone Orthopedic Surgery [facility] [address] [phone] Gabriella Carvalho PA from Last 3 Months [...] AM EST Office Visit Orthopedic Surgery - [place] [address] [facility] [address] [place] [phone] Gabriella Carvalho PA [address] [facility] [address] [place] [address] Health Maintenance Due Date Last Done Comments [...] Procedure Name Priority Date/Time Associated Diagnosis Comments [place] ARTHROCENTESIS/ASPIR ATION/INJECTION MAJOR JOINT/BURSA W/O U/S GUIDANCE Routine 02/21/2025 2:30 PM EDT Rotator cuff arthropathy of right shoulder Chronic pain of both shoulders XR SHOULDER 2+ VIEWS RIGHT Routine 02/21/2025 12:30 PM EDT Chronic right shoulder pain COLONOSCOPY Routine 09/13/2024 1:18 PM EDT from Last 3 Months or Most Recently Relevant to Health Maintenance Results * IL ARTHROCENTESIS/ASPIRATION/INJECTION MAJOR JOINT/BURSA W/O U/S GUIDANCE (02/21/2025 [...] 02/22/2025 7:45 AM EDT Normal examination. Code 30941 -------- FINAL REPORT -------- Dictated By: Ja Azul Dictated Date: 02/22/2025 07:44 ET Assigned Physician: Ja Azul Reviewed and Electronically Signed By: Ja Azul Signed Date: 02/22/2025 07:45 ET Workstation ID: [id number] Transcribed By: Self Edit Transcribed Date: 02/22/2025 [...] tissueabnormality is seen. IMPRESSION: Normal examination. Code 70681 -------- FINAL REPORT -------- Dictated By: Ja Azul Dictated Date: 02/22/2025 07:44 ET Assigned Physician: Ja Azul Reviewed and Electronically Signed By: Ja Azul Signed Date: 02/22/2025 07:45 ET Workstation ID: [id number] Transcribed By: Self Edit Transcribed Date: 02/22/2025 07:44 ET us Gabriella ENRIQUEZ IMG XR PROCEDURES Final Resul t * COLONOSCOPY (09/13/2024 1:18 PM EDT) Anatomical Region Laterality Modality Endoscopy us Historical Provider GI~PROCEDURE ORDERABLES F inal Result from Last 3 Months or Most Recently Relevant to Health Maintenance Insurance [facility] Member Subscriber Plan / Payer (Ef fective 2016-Present) Name:CHRISTIANE KELLY Relation to Subscriber:Self Name:Christiane Kelly Pardeep Payer ID:[id number] Group ID:[id number] Type:Not on file Address: [address] [facility] [place] [phone] Advance Directives Documents on File Type Date Recorded Patient Picture Engraver Expl anation Health Care Decision (hx) 01/12/2016 [...] (hx) 01/12/2016 AD ANDREWS DIRECTIVE Care Teams Plumbing Inspector Relationship Specialty Start Date End Date Amna Phillip FNP [address] [place] [phone] PCP - General 09/30/22
== END 2025-04-16 11:25 | disposition home or self-care (01) ==
LOC: HO.HPHYS 10:37
PROVIDERS: PCP Nurse Practitioner Family; Visit Provider Physical Medicine & Rehabilitation
DX: M54.2 Cervicalgia (principal); M25.511 Pain in right shoulder; M25.512 Pain in left shoulder; G89.29 Other chronic pain; M54.16 Radiculopathy, lumbar region; M54.12 Radiculopathy, cervical region; M48.02 Spinal stenosis, cervical region
CPT/HCPCS: 99214; G2211

== ENCOUNTER → 2025-04-16 10:36 | Outpatient (BNVA) | payer OTHER, SELFPAY | PROVIDERS: PCP Nurse Practitioner Family; Visit Provider Physical Medicine & Rehabilitation | DX: M48.02 Spinal stenosis, cervical region (principal); M54.12 Radiculopathy, cervical region; M75.101 Unspecified rotator cuff tear or rupture of right shoulder, not specified as traumatic; M54.16 Radiculopathy, lumbar region; M54.2 Cervicalgia; M25.511 Pain in right shoulder; M25.512 Pain in left shoulder; M75.102 Unspecified rotator cuff tear or rupture of left shoulder, not specified as traumatic | CPT/HCPCS: 99212 ==